=== PATIENT | male | born 1950 | race Caucasian/White ===

== ENCOUNTER 2019-04-15 15:52 | Inpatient (IN) | payer OTHER ==
[~2019-04-15] VITALS: Ht 182.9 cm; Wt 127.3 kg
[2019-04-15] MEDS ORDERED: CALCIUM CARBONATE 500 MG TAB.CHEW PO PRN (19:00)
[2019-04-15] MEDS ORDERED: ONDANSETRON PF 4 MG/2 ML VIAL. IV PRN (19:00)
[2019-04-15] MEDS ORDERED: PROCHLORPERAZINE 10 MG/2 ML VIAL. IV PRN (19:00)
[2019-04-15] MEDS ORDERED: BISACODYL 10 MG SUPP.RECT. PR PRN (19:00)
[2019-04-15] MEDS ORDERED: ALBUTEROL SULFATE 2.5 MG/3 ML NEBU. NEB PRN (19:00)
[2019-04-15] MEDS ORDERED: cloNIDine HCL 0.1 MG TABLET PO PRN (19:00)
[2019-04-15] MEDS ORDERED: ACETAMINOPHEN 325 MG TABLET. PO PRN (19:00)
[2019-04-15] MEDS ORDERED: MORPHINE SULFATE 2 MG/ML VIAL. IV PRN (19:00)
[2019-04-15] MEDS ORDERED: MAGNESIUM HYDROXIDE 2,400 MG/30 ML ORAL.SUSP. PO PRN (19:00)
--- NOTE | 2019-04-15 19:00 | NUR ---
The patient, ROSIO HAGAN, 68 y/o, M transfer from [facility], admitted by RISSA YATES MD, was given written information regarding hospital policies, unit procedures and contact persons. Valuables were checked. Patient forgetful, not able to obtain accurate history. Plan of care discuss. Pt need clarification and reinforcement. Call-light within reach. Will continue to monitor.
[2019-04-15 19:25] VITALS: BP 135/67
[2019-04-15] MEDS ORDERED: AMLO10TA8 PO (19:31)
[2019-04-15] MEDS ORDERED: METO50TA6 PO (19:31)
[2019-04-15] MEDS ORDERED: TAMS0.4C97 PO (19:31)
[2019-04-15] MEDS ORDERED: LACT1CAP2 PO (19:31)
[2019-04-15] MEDS ORDERED: ALBU2.5V8 INH (19:31)
[2019-04-15] MEDS ORDERED: RANI150T2 PO (19:31)
[2019-04-15] MEDS ORDERED: LOSA100T14 PO (19:31)
[2019-04-15] MEDS ORDERED: ACET325T9 PO (19:31)
[2019-04-15] MEDS ORDERED: POTA20TA82 PO (19:31)
[2019-04-15] MEDS ORDERED: HYDR50TA6 PO (19:31)
[2019-04-15] MEDS ORDERED: HYDR25TA PO (19:31)
[2019-04-15] MEDS ORDERED: VIT1TABL81 PO (19:31)
[2019-04-15] MEDS ORDERED: RISP4TAB2 PO (19:31)
[2019-04-15] MEDS ORDERED: TRIH5TAB2 PO ×2 (19:31)
[2019-04-15] MEDS ORDERED: TRAZ-118 PO (19:31)
[2019-04-15] MEDS ORDERED: BENZ2TAB5 PO ×2 (19:31)
[2019-04-15] MEDS ORDERED: SERT100T PO (19:31)
[2019-04-15] MEDS ORDERED: SILD100T PO (19:31)
[2019-04-15] MEDS ORDERED: ATOR40TA59 PO (19:31)
[2019-04-15] MEDS ORDERED: CHOL10003 PO (19:31)
[2019-04-15] MEDS ORDERED: CEPH500C PO (19:31)
[2019-04-15] MEDS ORDERED: CARB15DR3 EACHEYE (19:31)
[2019-04-15] MEDS ORDERED: FURO40TA4 PO (19:31)
[2019-04-15] MEDS ORDERED: DOCU100C28 PO (19:31)
[2019-04-15] MEDS ORDERED: ASPI325T8 PO (19:31)
[2019-04-15] MEDS ORDERED: MELO7.5T29 PO (19:31)
[2019-04-15] MEDS ORDERED: RIVA20TA2 PO (19:31)
[2019-04-15] MEDS: DOCUSATE SODIUM 100 MG CAPSULE. PO SCH (20:48)
[2019-04-15] MEDS ORDERED: hydrOXYzine 25 MG TABLET PO PRN (22:45)
[2019-04-15] MEDS ORDERED: NON FORMULARY ITEM (Sildenafil Citrate (Viagra) 1 TAB) PO SCH (22:45)
[2019-04-15 23:26] VITALS: BP 152/56
[2019-04-15] MEDS ORDERED: POLYVINYL ALCOHOL 1.4% OPHTH SOLUTION 15ML BOTTLE. OU PRN (23:30)
[2019-04-16] MEDS: BENZTROPINE MESYLATE 1 MG TABLET. PO SCH ×3 (00:06→20:51)
[2019-04-16] MEDS: traZODone 50 MG TABLET. PO SCH ×2 (00:06→20:51)
[2019-04-16] MEDS: risperiDONE 1 MG TABLET. PO SCH ×2 (00:07→20:50)
[2019-04-16 02:58] VITALS: BP 136/61
[2019-04-16] MEDS: oxyCODONE IR 5 MG TABLET PO PRN ×3 (03:57→23:11)
[2019-04-16 04:31] LABS: BILIRUBIN,URINE NEGATIVE (NEG); CLARITY,URINE CLEAR; COLOR,URINE YELLOW; NITRITE,URINE NEGATIVE (NEG); PROTEIN,URINE NEGATIVE (NEG-TRACE); UROBILINOGEN,URINE 0.2 mg/dL (0.2 mg/dL)
[2019-04-16 04:53] LABS: RBC,URINE TNTC /HPF (0-2)
[2019-04-16 04:54] LABS: BASO % 1 % (0-3); EOS # 0.2 x10^3/uL (0.0-0.7); EOS % 2 % (0-3); HEMATOCRIT 32.8 % (39.0-53.0); LYMPH % 14 % (24-48); MEAN CORPUSCULAR HEMOGLOBIN 30 pg (25-35); MEAN CORPUSCULAR HGB CONC 33 g/dL (31-37); MEAN CORPUSCULAR VOLUME 88 fL (79-100); MONO # 0.7 x10^3/uL (0.0-1.1); MONO % 9 % (0-9); NEUT # 5.4 x10^3uL (1.8-7.7); NEUT % 74 % (31-73); PLATELET COUNT 180 x10^3/uL (140-400); RED BLOOD COUNT 3.73 x10^6/uL (4.30-5.70); RED CELL DISTRIBUTION WIDTH 14.5 % (11.5-14.5); WHITE BLOOD COUNT 7.3 x10^3/uL (4.0-11.0)
[2019-04-16 04:54] LABS: BACTERIA,URINE 0 /HPF (0-FEW)
[2019-04-16 04:55] LABS: HYALINE CASTS, URINE FEW /HPF; SQUAMOUS EPITHELIAL CELL,UR OCC /LPF; YEAST,URINE PRESENT /HPF
[2019-04-16 05:07] LABS: PROTHROMBIN TIME PATIENT 14.7 SEC (11.7-14.0)
[2019-04-16 05:14] LABS: CALCIUM 9.3 mg/dL (8.5-10.1); CREATININE 1.1 mg/dL (0.7-1.3); GFR 66.2; POTASSIUM 3.4 mmol/L (3.5-5.1)
[2019-04-16 07:00] VITALS: BP 146/81
--- NOTE | 2019-04-16 08:53 | PDOC1 ---
History and Physical Date of Admission Date of Admission DATE: 04/16/19 TIME: 08:45 Source Source: Chart review, Patient History of Present Illness History of Present Illness Mr. Avilez was admitted to the [facility] yesterday to the ICU for pneumonia and leg pain. He complains of a long history of leg pain with ulcer and f/u planned withwound care, but new pain with marked redness and swelling of the leg. He is unsure of some timeline events and still thinks he is at [facility]. The area on the left leg is improved, seems less red to area marked yesterday. He slept OK, has short breaths, but can walk to the bathroom, some weakness, pain better, still 6/10, he is hungry and would like something to eat or drink. Past Medical History Cardiovascular: AFIB, HTN, Hyperlipidemia Hepatobiliary: No pertinent hx Psych: Depression, Other (schizotyoal) Musculoskeletal: low back pain, Osteoarthritis ENT: No pertinent hx Endocrine: No pertinent hx Dermatology: No pertinent hx Past Surgical History Past Surgical History: Other (left leg hardware many years ago) Family History Family History: No Significant Family History: Parent, Grandparents Social History Smoke: Quit ALCOHOL: none Drugs: None Current Medications Current Medications Current Medications Ondansetron HCl (Zofran) 4 mg PRN Q6HRS PRN IV NAUSEA/VOMITING, 1st CHOICE; Start 04/15/19 at 19:00 Prochlorperazine Edisylate (Compazine) 10 mg PRN Q6HRS PRN IV NAUSEA/VOMITING, 2nd CHOICE; Start 04/15/19 at 19:00 Calcium Carbonate/ Glycine (Tums) 500 mg PRN Q3HRS PRN PO UPSET STOMACH; Start 04/15/19 at 19:00 Oxycodone HCl (Roxicodone) 5 mg PRN Q3HRS PRN PO BREAKTHROUGH PAIN Last adm inistered on 04/16/19at 03:57; Start 04/15/19 at 19:00 Morphine Sulfate (Morphine Sulfate) 2 mg PRN Q2HR PRN IV PAIN; Start 04/15/19 at 19:00 Acetaminophen (Tylenol) 650 mg PRN Q6HRS PRN PO Headaches, Temp > 101.5F; Start 04/15/19 at 19:00 Docusate Sodium (Colace) 100 mg BID PO ; Start 04/15/19 at 21:00 Magnesium Hydroxide (Milk Of Magnesia) 2,400 mg PRN Q12HR PRN PO CONSTIPATION; Start 04/15/19 at 19:00 Bisacodyl (Dulcolax Supp) 10 mg PRN DAILY PRN NM CONSTIPATION; Start 04/15/19 at 19:00 Albuterol Sulfate (Ventolin Neb Soln) 2.5 mg PRN Q4HRS PRN NEB SHORTNESS OF BREATH Last administered on 04/15/19at 21:24; Start 04/15/19 at 19:00 Clonidine HCl (Catapres) 0.1 mg PRN Q1HR PRN PO HYPERTENSION; Start 04/15/19 at 19:00 Amlodipine Besylate (Norvasc) 10 mg DAILY PO ; Start 04/16/19 at 09:00 Atorvastatin Calcium (Lipitor) 40 mg QHS PO ; Start 04/16/19 at 21:00 Vitamin D (Vitamin D3) 2,000 unit DAILY PO ; Start 04/16/19 at 09:00 Furosemide (Lasix) 40 mg BID94 PO ; Start 04/16/19 at 09:00 Hydroxyzine HCl (Atarax) 25 mg PRN TID PRN PO ITCHING; Start 04/15/19 at 22:45 Metoprolol Tartrate (Lopressor) 75 mg BID PO ; Start 04/16/19 at 09:00 Tamsulosin HCl (Flomax) 0.4 mg QHS PO ; Start 04/16/19 at 21:00 Benztropine Mesylate (Cogentin) 2 mg QHS PO Last administered on 04/16/19at 00:06; Start 04/15/19 at 23:30 Benztropine Mesylate (Cogentin) 4 mg DAILY08 PO ; Start 04/16/19 at 08:00 Artificial Tears (Artificial Tears) 1 drop PRN QID PRN OU DRY EYE; Start 04/15/19 at 23:30 Cephalexin HCl (Keflex) 500 mg TID PO ; Start 04/16/19 at 23:45 Hydrochlorothiazide (Hydrodiuril) 50 mg DAILY PO ; Start 04/16/19 at 09:00 Lactobacillus Rhamnosus (Culturelle) 1 cap TID PO ; Start 04/16/19 at 09:00 Losartan Potassium (Cozaar) 100 mg DAILY PO ; Start 04/16/19 at 09:00 Meloxicam (Mobic) 7.5 mg BID PO ; Start 04/16/19 at 09:00 Potassium Chloride (Klor-Con) 20 meq DAILYWBKFT PO ; Start 04/16/19 at 08:00 Famotidine (Pepcid) 20 mg BID PO ; Start 04/16/19 at 09:00 Risperidone (RisperDAL) 4 mg QHS PO Last administered on 04/16/19at 00:07; Star t 04/15/19 at 23:30 Sertraline HCl (Zoloft) 150 mg DAILY PO ; Start 04/16/19 at 09:00 Non-Formulary Medication (Sildenafil Citrate (Viagra)) 1 tab PRN DAILY PO ; Start 04/15/19 at 22:45; Status UNV Trazodone HCl (Desyrel) 150 mg QHS PO Last administered on 04/16/19at 00:06; Start 04/15/19 at 23:30 Trihexyphenidyl HCl (Artane) 5 mg DAILY08 PO ; Start 04/16/19 at 08:00 Trihexyphenidyl HCl (Artane) 10 mg DAILYWLUN PO ; Start 04/16/19 at 12:00 Vitamin B Complex (Cricket B) 1 tab DAILY PO ; Start 04/16/19 at 09:00 Albuterol/ Ipratropium (Duoneb) 3 ml RTQID NEB ; Start 04/16/19 at 12:00 Active Scripts Active Reported Flomax (Tamsulosin Hcl) 0.4 Mg Cap.er.24h 1 Cap PO QHS Losartan Potassium 100 Mg Tablet 100 Mg PO DAILY Vitamin D3 (Cholecalciferol (Vitamin D3)) 1,000 Unit Tablet 2 Tab PO DAILY Aspirin 325 Mg Tablet 1 Tab PO DAILY Amlodipine Besylate 10 Mg Tablet 10 Mg PO DAILY Trazodone Hcl 50 Mg Tablet 3 Tab PO QHS Cephalexin 500 Mg Capsule 2 Cap PO TID Tylenol (Acetaminophen) 325 Mg Tablet 1-2 Tab PO QID Gnp B-Complex Tablet (Vit B Comp & C/Calcium Carb) 1 Each Tablet 1 Each PO DAILY Trihexyphenidyl Hcl 5 Mg Tablet 2 Tab PO DAILYWLUN Trihexyphenidyl Hcl 5 Mg Tablet 1 Tab PO DAILY08 Viagra (Sildenafil Citrate) 100 Mg Tablet 1 Tab PO PRN DAILY Zoloft (Sertraline Hcl) 100 Mg Tablet 1.5 Tab PO DAILY Xarelto (Rivaroxaban) 20 Mg Tablet 20 Mg PO DAILY Risperidone 4 Mg Tablet 1 Tab PO QHS Ranitidine Hcl 150 Mg Tablet 1 Tab PO BID Potassium Chloride 20 Meq Tablet.er 20 Meq PO DAILY Metoprolol Tartrate 50 Mg Tablet 1.5 Tab PO BID Meloxicam 7.5 Mg Tablet 1 Tab PO BID Acidophilus (Lactobacillus Acidophilus) 1 Each Capsule 1 Each PO TID Hydroxyzine Hcl 25 Mg Tablet 1 Tab PO PRN TID PRN Hydrochlorothiazide Tablet (Hydrochlorothiazide) 50 Mg Tablet 50 Mg PO DAILY Furosemide 40 Mg Tablet 40 Mg PO BID Docusate Sodium 100 Mg Capsule 1 Cap PO BID Refresh Optive Eye Drops (Carboxymethylcellulos/Glycerin) 15 Ml Drops 1 Drop EACHEYE PRN QID PRN Benztropine Mesylate 2 Mg Tablet 1 Tab PO QHS Benztropine Mesylate 2 Mg Tablet 2 Tab PO DAILY08 Atorvastatin Calcium 40 Mg Tablet 1 Tab PO QHS Proair Hfa Inhaler (Albuterol Sulfate) 8.5 Gm Hfa.aer.ad 2 Puff INH PRN Q6HRS PRN Allergies Allergies: Coded Allergies: No Known Medication Allergies (Verified Allergy, Unknown, 04/15/19) Uncoded Allergies: dust (Allergy, Intermediate, SNEEZING, 04/15/19) Sneezing ROS General: YES: Chills, Fatigue, Malaise PSYCHOLOGICAL ROS: YES: Anxiety, Sleep disturbances Eyes: No Blurry vision, No Decreased vision, No Double vision, No Dry eyes, No Excessive tearing, No Eye Pain, No Itchy Eyes, No Loss of vision, No Photophobia, No Scotomata, No Uses contacts, No Uses glasses, No Other HEENT: YES: Heacaches; No: Visual Changes, Hearing change, Nasal congestion, Nasal discharge, Oral lesions, Sinus pain, Sore Throat, Epistaxis, Sneezing, Snoring, Tinnitus, Vertigo, Vocal changes, Other Respiratory: No: Cough, Hemoptysis, Orthopnea, Pleuritic Pain, Shortness of breath, SOB with excertion, Sputum Changes, Stridor, Tachypnea, Wheezing, Other Cardiovascular: No Chest Pain, No Palpitations, No Orthopnea, No Paroxysmal Noc. Dyspnea, No Edema, No Lt Headedness, No Other Gastrointestinal: Yes Nausea; No Vomiting, No Abdominal Pain, No Diarrhea, No Constipation, No Melena, No Hematochezia, No Other Genitourinary: No Dysuria, No Frequency, No Incontinence, No Hematuria, No Retention, No Discharge, No Urgency, No Pain, No Flank Pain, No Other, No , No , No , No , No , No , No Musculoskeletal: Yes Joint Pain, Yes Joint Stiffness, Yes Pain In: (left leg); No Gait Disturbance, No Joint Swelling, No Muscle Pain, No Muscular Weakness, No Swelling In:, No Other Neurological: No Behavorial Changes, No Bowel/Bladder ControlChng, No Confusion, No Dizziness, No Gait Disturbance, No Headaches, No Impaired Coord/balance, No Memory Loss, No Numbness/Tingling, No Seizures, No Speech Problems, No Tremors, No Visual Changes, No Weakness, No Other Skin: Yes Dry Skin Physical Exam General: Alert, Cooperative, mild distress, Other HEENT: Atraumatic Lungs: Clear to auscultation Heart: no gallops, no murmurs, irregularly irregular Breasts: Normal Abdomen: Normal bowel sounds, Soft (obese, NT, ), Other Extremities: No cyanosis, Other (tr edema, left, ) Skin: Other (redness, to upper [place], has receded from marked area, ) Neuro: Normal speech, Sensation intact Psych/Mental Status: Mental status NL, Mood NL Vitals Vitals Vital Signs Date Time Temp Pulse Resp B/P (MAP) Pulse Ox O2 Delivery O2 Flow Rate FiO2 04/16/19 07:00 99.0 102 18 146/81 (102) 90 Room Air 99.0 Labs Labs Laboratory Tests Test 04/16/19 03:00 04/16/19 04:15 Urine Collection Type Unknown Urine Color Yellow Urine Clarity Clear Urine pH 7.0 Urine Specific [place] 1.015 Urine Protein Negative mg/dL (NEG-TRACE) Urine Glucose (UA) Negative mg/dL (NEG) Urine Ketones (Stick) Negative mg/dL (NEG) Urine Blood Large (NEG) Urine Nitrite Negative (NEG) Urine Bilirubin Negative (NEG) Urine Urobilinogen Dipstick 0.2 mg/dL (0.2 mg/dL) Urine Leukocyte Esterase Small (NEG) Urine RBC Tntc /HPF (0-2) Urine WBC 5-10 /HPF (0-4) Urine Squamous Epithelial Cells Occ /LPF Urine Bacteria 0 /HPF (0-FEW) Urine Hyaline Casts Few /HPF Urine Mucus Mod /LPF Urine Yeast Present /HPF White Blood Count 7.3 x10^3/uL (4.0-11.0) Red Blood Count 3.73 x10^6/uL (4.30-5.70) Hemoglobin 11.0 g/dL (13.0-17.5) Hematocrit 32.8 % (39.0-53.0) Mean Corpuscular Volume 88 fL (79-100) Mean Corpuscular Hemoglobin 30 pg (25-35) Mean Corpuscular Hemoglobin Concent 33 g/dL (31-37) Red Cell Distribution Width 14.5 % (11.5-14.5) Platelet Count 180 x10^3/uL (140-400) Neutrophils (%) (Auto) 74 % (31-73) Lymphocytes (%) (Auto) 14 % (24-48) Monocytes (%) (Auto) 9 % (0-9) Eosinophils (%) (Auto) 2 % (0-3) Basophils (%) (Auto) 1 % (0-3) Neutrophils # (Auto) 5.4 x10^3uL (1.8-7.7) Lymphocytes # (Auto) 1.0 x10^3/uL (1.0-4.8) Monocytes # (Auto) 0.7 x10^3/uL (0.0-1.1) Eosinophils # (Auto) 0.2 x10^3/uL (0.0-0.7) Basophils # (Auto) 0.0 x10^3/uL (0.0-0.2) Erythrocyte Sedimentation Rate 63 (0-15) Prothrombin Time 14.7 SEC (11.7-14.0) Prothromb Time International Ratio 1.2 (0.8-1.1) Sodium Level 144 mmol/L (136-145) Potassium Level 3.4 mmol/L (3.5-5.1) Chloride Level 107 mmol/L (98-107) Carbon Dioxide Level 27 mmol/L (21-32) Anion Gap 10 (6-14) Blood Urea Nitrogen 21 mg/dL (8-26) Creatinine 1.1 mg/dL (0.7-1.3) Estimated GFR (Cockcroft-Gault) 66.2 Glucose Level 143 mg/dL (70-99) Calcium Level 9.3 mg/dL (8.5-10.1) Laboratory Tests Test 04/16/19 03:00 04/16/19 04:15 Urine Collection Type Unknown Urine Color Yellow Urine Clarity Clear Urine pH 7.0 Urine Specific [place] 1.015 Urine Protein Negative mg/dL (NEG-TRACE) Urine Glucose (UA) Negative mg/dL (NEG) Urine Ketones (Stick) Negative mg/dL (NEG) Urine Blood Large (NEG) Urine Nitrite Negative (NEG) Urine Bilirubin Negative (NEG) Urine Urobilinogen Dipstick 0.2 mg/dL (0.2 mg/dL) Urine Leukocyte Esterase Small (NEG) Urine RBC Tntc /HPF (0-2) Urine WBC 5-10 /HPF (0-4) Urine Squamous Epithelial Cells Occ /LPF Urine Bacteria 0 /HPF (0-FEW) Urine Hyaline Casts Few /HPF Urine Mucus Mod /LPF Urine Yeast Present /HPF White Blood Count 7.3 x10^3/uL (4.0-11.0) Red Blood Count 3.73 x10^6/uL (4.30-5.70) Hemoglobin 11.0 g/dL (13.0-17.5) Hematocrit 32.8 % (39.0-53.0) Mean Corpuscular Volume 88 fL (79-100) Mean Corpuscular Hemoglobin 30 pg (25-35) Mean Corpuscular Hemoglobin Concent 33 g/dL (31-37) Red Cell Distribution Width 14.5 % (11.5-14.5) Platelet Count 180 x10^3/uL (140-400) Neutrophils (%) (Auto) 74 % (31-73) Lymphocytes (%) (Auto) 14 % (24-48) Monocytes (%) (Auto) 9 % (0-9) Eosinophils (%) (Auto) 2 % (0-3) Basophils (%) (Auto) 1 % (0-3) Neutrophils # (Auto) 5.4 x10^3uL (1.8-7.7) Lymphocytes # (Auto) 1.0 x10^3/uL (1.0-4.8) Monocytes # (Auto) 0.7 x10^3/uL (0.0-1.1) Eosinophils # (Auto) 0.2 x10^3/uL (0.0-0.7) Basophils # (Auto) 0.0 x10^3/uL (0.0-0.2) Erythrocyte Sedimentation Rate 63 (0-15) Prothrombin Time 14.7 SEC (11.7-14.0) Prothromb Time International Ratio 1.2 (0.8-1.1) Sodium Level 144 mmol/L (136-145) Potassium Level 3.4 mmol/L (3.5-5.1) Chloride Level 107 mmol/L (98-107) Carbon Dioxide Level 27 mmol/L (21-32) Anion Gap 10 (6-14) Blood Urea Nitrogen 21 mg/dL (8-26) Creatinine 1.1 mg/dL (0.7-1.3) Estimated GFR (Cockcroft-Gault) 66.2 Glucose Level 143 mg/dL (70-99) Calcium Level 9.3 mg/dL (8.5-10.1) VTE Prophylaxis Ordered VTE Prophylaxis Devices: Yes VTE Pharmacological Prophylaxi: Contraindicated Assessment/Plan Assessment/Plan leg leg cellulitis with wound, swelling and pain, has history of hardware to left leg, has been on disability 30 years for leg injury hx venous stasis ulcer, has followed with wound clinic obesity, COPD, treated for pneumonia at [facility] yesterday, was admitted to ICU there but did not meet SIRS criteria afib, on xarelto, will hold, they had planned an echo, cognitive decline, lives in assisted living, schizoaffective hx with depression, on meds BUTCH OAKLEY MD April 16, 2019 08:53
[2019-04-16] MEDS: BUDESONIDE 0.5 MG/2 ML NEBU. NEB SCH ×2 (08:57→20:58)
[2019-04-16] MEDS: IPRATRPIUM/ALBUTEROL 0.5/2.5MG 3 ML NEBU. NEB SCH ×4 (08:57→20:58)
[2019-04-16] MEDS: DOCUSATE SODIUM 100 MG CAPSULE. PO SCH ×2 (09:00→20:53)
[2019-04-16 11:00] VITALS: BP 160/68
--- NOTE | 2019-04-16 11:45 | PDOC ---
Infectious Disease Note Vital Signs: Vital Signs Vital Signs Date Time Temp Pulse Resp B/P (MAP) Pulse Ox O2 Delivery O2 Flow Rate FiO2 04/16/19 08:57 89 Room Air 04/16/19 07:00 99.0 102 18 146/81 (102) 99.0 Medications: Inpatient Meds: Current Medications Medications (Trade) Dose Ordered Sig/Akanksha Start Time Stop Time Status Last Admin Dose Admin Acetaminophen (Tylenol) 650 mg PRN Q6HRS PRN 04/15/19 19:00 Albuterol Sulfate (Ventolin Neb Soln) 2.5 mg PRN Q4HRS PRN 04/15/19 19:00 04/15/19 21:24 2.5 MG Albuterol/ Ipratropium (Duoneb) 3 ml RTQID 04/16/19 12:00 04/16/19 08:57 3 ML Amlodipine Besylate (Norvasc) 10 mg DAILY 04/16/19 09:00 Artificial Tears (Artificial Tears) 1 drop PRN QID PRN 04/15/19 23:30 Atorvastatin Calcium (Lipitor) 40 mg QHS 04/16/19 21:00 Benztropine Mesylate (Cogentin) 4 mg DAILY08 04/16/19 08:00 Bisacodyl (Dulcolax Supp) 10 mg PRN DAILY PRN 04/15/19 19:00 Budesonide (Pulmicort) 0.5 mg RTBID 04/16/19 09:30 04/16/19 08:57 0.5 MG Calcium Carbonate/ Glycine (Tums) 500 mg PRN Q3HRS PRN 04/15/19 19:00 Cephalexin HCl (Keflex) 500 mg TID 04/16/19 23:45 Clonidine HCl (Catapres) 0.1 mg PRN Q1HR PRN 04/15/19 19:00 Docusate Sodium (Colace) 100 mg BID 04/15/19 21:00 Famotidine (Pepcid) 20 mg BID 04/16/19 09:00 Furosemide (Lasix) 40 mg BID94 04/16/19 09:00 Hydrochlorothiazide (Hydrodiuril) 50 mg DAILY 04/16/19 09:00 Hydroxyzine HCl (Atarax) 25 mg PRN TID PRN 04/15/19 22:45 Lactobacillus Rhamnosus (Culturelle) 1 cap TID 04/16/19 09:00 Losartan Potassium (Cozaar) 100 mg DAILY 04/16/19 09:00 Magnesium Hydroxide (Milk Of Magnesia) 2,400 mg PRN Q12HR PRN 04/15/19 19:00 Meloxicam (Mobic) 7.5 mg BID 04/16/19 09:00 Metoprolol Tartrate (Lopressor) 75 mg BID 04/16/19 09:00 Morphine Sulfate (Morphine Sulfate) 2 mg PRN Q2HR PRN 04/15/19 19:00 Non-Formulary Medication (Sildenafil Citrate (Viagra)) 1 tab PRN DAILY 04/15/19 22:45 UNV Ondansetron HCl (Zofran) 4 mg PRN Q6HRS PRN 04/15/19 19:00 Oxycodone HCl (Roxicodone) 5 mg PRN Q3HRS PRN 04/15/19 19:00 04/16/19 03:57 5 MG Potassium Chloride (Klor-Con) 20 meq DAILYWBKFT 04/16/19 08:00 Prochlorperazine Edisylate (Compazine) 10 mg PRN Q6HRS PRN 04/15/19 19:00 Risperidone (RisperDAL) 4 mg QHS 04/15/19 23:30 04/16/19 00:07 4 MG Sertraline HCl (Zoloft) 150 mg DAILY 04/16/19 09:00 Tamsulosin HCl (Flomax) 0.4 mg QHS 04/16/19 21:00 Trazodone HCl (Desyrel) 150 mg QHS 04/15/19 23:30 04/16/19 00:06 150 MG Trihexyphenidyl HCl (Artane) 10 mg DAILYWLUN 04/16/19 12:00 Vitamin B Complex (Cricket B) 1 tab DAILY 04/16/19 09:00 Vitamin D (Vitamin D3) 2,000 unit DAILY 04/16/19 09:00 Labs: Lab Laboratory Tests Test 04/16/19 03:00 04/16/19 04:15 Urine Collection Type Unknown Urine Color Yellow Urine Clarity Clear Urine pH 7.0 Urine Specific [place] 1.015 Urine Protein Negative mg/dL (NEG-TRACE) Urine Glucose (UA) Negative mg/dL (NEG) Urine Ketones (Stick) Negative mg/dL (NEG) Urine Blood Large (NEG) Urine Nitrite Negative (NEG) Urine Bilirubin Negative (NEG) Urine Urobilinogen Dipstick 0.2 mg/dL (0.2 mg/dL) Urine Leukocyte Esterase Small (NEG) Urine RBC Tntc /HPF (0-2) Urine WBC 5-10 /HPF (0-4) Urine Squamous Epithelial Cells Occ /LPF Urine Bacteria 0 /HPF (0-FEW) Urine Hyaline Casts Few /HPF Urine Mucus Mod /LPF Urine Yeast Present /HPF White Blood Count 7.3 x10^3/uL (4.0-11.0) Red Blood Count 3.73 x10^6/uL (4.30-5.70) Hemoglobin 11.0 g/dL (13.0-17.5) Hematocrit 32.8 % (39.0-53.0) Mean Corpuscular Volume 88 fL (79-100) Mean Corpuscular Hemoglobin 30 pg (25-35) Mean Corpuscular Hemoglobin Concent 33 g/dL (31-37) Red Cell Distribution Width 14.5 % (11.5-14.5) Platelet Count 180 x10^3/uL (140-400) Neutrophils (%) (Auto) 74 % (31-73) Lymphocytes (%) (Auto) 14 % (24-48) Monocytes (%) (Auto) 9 % (0-9) Eosinophils (%) (Auto) 2 % (0-3) Basophils (%) (Auto) 1 % (0-3) Neutrophils # (Auto) 5.4 x10^3uL (1.8-7.7) Lymphocytes # (Auto) 1.0 x10^3/uL (1.0-4.8) Monocytes # (Auto) 0.7 x10^3/uL (0.0-1.1) Eosinophils # (Auto) 0.2 x10^3/uL (0.0-0.7) Basophils # (Auto) 0.0 x10^3/uL (0.0-0.2) Erythrocyte Sedimentation Rate 63 (0-15) Prothrombin Time 14.7 SEC (11.7-14.0) Prothromb Time International Ratio 1.2 (0.8-1.1) Sodium Level 144 mmol/L (136-145) Potassium Level 3.4 mmol/L (3.5-5.1) Chloride Level 107 mmol/L (98-107) Carbon Dioxide Level 27 mmol/L (21-32) Anion Gap 10 (6-14) Blood Urea Nitrogen 21 mg/dL (8-26) Creatinine 1.1 mg/dL (0.7-1.3) Estimated GFR (Cockcroft-Gault) 66.2 Glucose Level 143 mg/dL (70-99) Calcium Level 9.3 mg/dL (8.5-10.1) Objective: Assessment: pt seen and examined IMP Recent pneumonia at [facility] admitted to ICU Chronic venous stasis Lt chronic venous ulcer ? unknown duration . Leucocytosis and lactic acidosis at osh resolved Chr diastolic heart failure Plan: Plan of Care DC Keflex start pt on Cefepime and doxycycline for now on antidepressant f/u MRI LLE Ortho consult pending Cont local wound care [facility] Thank you [phone] HARSHIL JAMESON MD April 16, 2019 11:45
[2019-04-16] MEDS: TRIHEXYPHENIDYL 2 MG TABLET. PO SCH ×2 (12:00→12:24)
[2019-04-16] MEDS: hydroCHLOROthiazide 25 MG TABLET PO SCH (12:24)
[2019-04-16] MEDS: SERTRALINE 50 MG TABLET. PO SCH (12:25)
[2019-04-16] MEDS: LACTOBACILLUS RHAMNOSUS GG 1 CAPSULE. PO SCH ×3 (12:25→20:52)
[2019-04-16] MEDS: POTASSIUM CHLORIDE 20 MEQ TABLET.ER. PO SCH (12:25)
[2019-04-16] MEDS: VITAMIN B COMPLEX TABLET. PO SCH (12:25)
[2019-04-16] MEDS: DOXYCYCLINE HYCLATE 100 MG TABLET PO SCH ×2 (12:25→20:51)
[2019-04-16] MEDS: CHOLECALCIFEROL (VITAMIN D3) 1,000 UNIT TABLET PO SCH (12:25)
[2019-04-16] MEDS: METOPROLOL TART IMMED RELEASE 25 MG TABLET. PO SCH ×2 (12:26→20:52)
[2019-04-16] MEDS: FUROSEMIDE 40 MG TABLET. PO SCH ×2 (12:26→17:55)
[2019-04-16] MEDS: MELOXICAM 7.5 MG TABLET PO SCH ×2 (12:26→20:53)
[2019-04-16] MEDS: amLODIPine BESYLATE 10 MG TABLET PO SCH (12:27)
[2019-04-16] MEDS: CEFEPIME HCL IV Push 2 GM VIAL. IVP SCH ×2 (12:27→20:50)
[2019-04-16] MEDS: FAMOTIDINE 20 MG TABLET. PO SCH ×2 (12:27→20:53)
[2019-04-16] MEDS: LOSARTAN POTASSIUM 50 MG TABLET. PO SCH (12:28)
[2019-04-16] MEDS ORDERED: hydrOXYzine PAMOATE 25 MG CAPSULE PO PRN (13:25)
[2019-04-16 15:00] VITALS: BP 122/59
[2019-04-16 19:00] VITALS: BP 130/76
--- NOTE | 2019-04-16 19:49 | CONS ---
DATE OF CONSULTATION: 04/16/2019 REFERRING PHYSICIAN: Cici Martin M.D. REASON FOR CONSULTATION: Left lower extremity cellulitis, possible osteo. HISTORY OF PRESENT ILLNESS: A 68-year-old male who was transferred from [facility] where he was admitted to the ICU on 04/13/2019 with altered mental status, pneumonia and leg pain. The patient has chronic renal insufficiency and has chronic nonhealing venous stasis ulcer for which he follows up at [facility] at [facility]. He had new pain with marked redness and swelling of the leg. He was admitted to ICU on 04/13. His white count was high with a lactic acidosis. Source was thought to be pneumonia. He underwent a chest x-ray, which showed patchy infiltrate in the right lung base with atelectasis versus infection here, and CT of the head due to altered mental status, which showed no acute intracranial abnormality. He was started on IV Rocephin and doxycycline. Cultures were done. I do not have the report on the same. For confusion, it was thought to be from the infection. CT of the head was negative for any acute findings. He was later changed to cefepime. CT of the lower extremity was done without contrast, which showed mild periosteal reaction seen in the medial aspect of the distal fibula, may be reactive. Other consideration would be early changes related to osteomyelitis. Consider bone scan or WBC scan for further evaluation if clinically indicated. No destructive bone changes are identified, stable extensive posttraumatic changes seen in the distal tibia and fibula. No drainable collection identified. Extensive subcutaneous edema noted. The patient has hardware in place from previous surgery, which he states is more than 25 years old. The patient was started on Keflex here. He was transferred to [facility] for orthopedic evaluation and treatment. MRI of the left lower extremity has been ordered, which is pending at this time. White count is back to normal. Currently, he is on Keflex, started by primary team. ID consult has been requested for antibiotic management. Today, the patient denies any fever, chills, nausea, vomiting, diarrhea, shortness of breath, cough, chest pain with deep breathing or symptoms. Does have a Olivarez in place. Does have O2 by nasal cannula. PAST MEDICAL HISTORY: Atrial fibrillation, hypertension, hyperlipidemia, depression, schizoaffective disorder, chronic low back pain, DJD, chronic diastolic heart failure, chronic venous insufficiency of lower extremity, history of recurrent DVT, chronic edema of lower extremity, chronic venous stasis ulcer, urinary incontinence, chronic hep C without evidence of, hypogonadism, dyspepsia, GERD, erectile dysfunction, seborrheic keratosis, hypertension, history of atrial tachycardia, senile cataract, seborrheic dermatitis, hyperlipidemia, paroxysmal atrial tachycardia, impaired fasting glucose, history of alcohol dependence, history of cannabis use, COPD, dystrophic nails, history of callus, and history of BPH. SOCIAL HISTORY: He quit smoking, no ETOH, no illicit drug use. FAMILY HISTORY: As per HPI. PAST SURGICAL HISTORY: Left leg hardware in place more than 20 years ago. CURRENT MEDICATION: Keflex. OTHER MEDICATIONS: Zofran, calcium carbonate, oxycodone, morphine, acetaminophen, docusate, magnesium hydroxide, albuterol, clonidine, amlodipine, atorvastatin, vitamin D, furosemide, hydroxyzine, metoprolol, tamsulosin, benztropine, artificial tears, hydrochlorothiazide, lactobacillus, losartan, Meloxicam, potassium, famotidine, risperidone, sertraline, trazodone, trihexyphenidyl, B complex, albuterol/ipratropium. The patient had been on ceftriaxone and doxycycline. On admission, later on, he was also on cefepime at [facility]. ALLERGIES: No known drug allergies. DUST CAUSING SNEEZING. REVIEW OF SYSTEMS: Negative except for above in the HPI. PHYSICAL EXAMINATION: VITAL SIGNS: Temperature is 97, pulse 102, respiratory rate 18, blood pressure 146/81, and oxygen saturation 90% on room air. GENERAL: Alert, oriented, somewhat confused male sitting in chair, in no acute distress, cooperative, pleasant. HEENT: Normocephalic, atraumatic, anicteric. NECK: Supple. No JVD. LUNGS: Clear bilaterally, no wheezing. HEART: S1, S2, no gallops or murmurs. ABDOMEN: Soft, obese. Bowel sounds present, nontender, nondistended. GENITOURINARY: Olivarez in place. CENTRAL NERVOUS SYSTEM: Alert, awake, somewhat confused, does have some trouble with memory. Able to move all 4 extremities. DERMATOLOGIC: Warm, dry. No generalized rash. EXTREMITIES: Left lower extremity swelling present. Scar over the lateral aspect around the ankle well healed. Venous stasis ulcer present on the medial aspect. No purulent drainage. Does not have any sinus tract, does not appear to be communicating to the lateral HW in place PSYCHIATRIC: Cooperative, appropriate mood and affect. LABORATORY DATA: WBC is 7.3, hemoglobin 11.0, hematocrit 32.8, and neutrophils 74%. ESR is 63. Sodium is 144, potassium 3.4, chloride 107, bicarbonate 27, BUN 21, creatinine 1.1, and glucose 143. UA shows 5-10 wbc's, leukocyte esterase small, too numerous to count urine RBC. Chest x-ray, none. UA at outside hospital was within normal limits. White count was elevated at 0.98. Lactate of 3.59. Creatinine of 1.91. CT head as above. CT of left lower extremity without contrast shows mild periosteal reaction seen along the medial aspect of the distal fibula may be reactive. Other consideration would be early changes related to osteomyelitis. Consider bone scan or white cell scan for further evaluation if clinically indicated. No destructive bone changes are identified, stable except posttraumatic changes noted in the distal tibia and fibula. No drainable collection identified. Extensive subcutaneous edema noted. Chest x-ray at outside hospital showed mild patchy opacity at the medial right lung base, which may represent atelectasis or infection. Linear streaky opacities at the lung bases bilaterally, may represent subsegmental atelectasis or scarring or airspace disease or infection. IMPRESSION: 1. Chronic venous stasis ulcer, left lower leg medially, followed by [facility] at [facility]. Does not appear to be going to the lateral ankle hardware. MRI LLE is pending, Ortho evaluation pending 2. Chronic venous stasis. 3. History of left lower extremity hardware in place, lateral aspect, more than 30 years ago. 4. Recent pneumonia with leukocytosis and lactic acidosis treated at ICU at [facility]. Blood cultures were done, not available for review at this time. 5. Confusion with underlying history of frontotemporal dementia. CT without acute findings at outside hospital, improving. 6. Hypertension/hyperlipidemia. 7. Chronic diastolic heart failure. 8. Depression/schizoaffective disorder. 9. History of deep venous thrombosis in the past. RECOMMENDATIONS: 1. Discontinue Keflex. 2. Start the patient on empiric cefepime and doxycycline with recent history of pneumonia,will deescalate soon 3. Awaiting MRI of the left lower extremity. 4. Awaiting Ortho consult. 5. Elevate left lower extremity. 6. Follow up cultures done at [facility]. 7. Continue local wound care. Thank you, Dr. Martin for consulting Infectious Disease to participate in this patient's care. Discussed with RN. HARSHIL JAMESON MD DR: EARLENE/charles JOB#: [id number] / [id number] MADELINE
[2019-04-16] MEDS: ATORVASTATIN CALCIUM 40 MG TABLET. PO SCH (20:53)
[2019-04-16] MEDS: TAMSULOSIN 0.4 MG CAP.ER.24H. PO SCH (20:53)
--- NOTE | 2019-04-16 21:15 | NUR ---
Patient refused evening breathing treatment.
--- NOTE | 2019-04-16 21:48 | CONS ---
DATE OF CONSULTATION: 04/16/2019 REQUESTING PHYSICIAN: Dr. Cici Martin. REASON FOR CONSULTATION: Left leg wound with suspected osteomyelitis. HISTORY OF PRESENT ILLNESS: The patient was admitted to [facility] for some complaints of shortness of breath and was found to have pneumonia. He also on admission was noted to have a skin ulceration he says for several months, perhaps going on a year that has been recently draining and has had increased pain associated with redness and swelling. He states that the left ankle has been painful chronically since a compound fracture that occurred 30 years ago, I am not sure if he was in the or not at that time, but he underwent multiple surgeries and indicates that while the pin that was placed on the lateral aspect of the leg was kept in, he underwent a removal of his plate and screw hardware along the medial aspect of his ankle where he currently has his symptoms. He indicates that the ankle has just been stiff and painful with ambulation and more so when it is swollen like it was recently. PAST MEDICAL HISTORY: Significant for chronic low back pain, osteoarthritis, hyperlipidemia, atrial fibrillation, hypertension and he is under treatment for his psychiatric issues of depression and schizo type issues. PAST SURGICAL HISTORY: Significant for the multiple surgeries on his left ankle from a compound fracture 30 years ago with fixation and subsequent hardware removal from the medial ankle. FAMILY HISTORY: He denies any significant family history. SOCIAL HISTORY: Smoked in the past, but quit. Denies alcohol or drug use. MEDICATIONS: Reviewed. ALLERGIES: He has no known medication allergies, although dust is indicated as seasonal allergy. REVIEW OF SYSTEMS: Chills, lack of energy and just fatigue when he tries to get up and around. He has also had some difficulty sleeping that is worse than his baseline anxiety. He has had headaches, nausea, joint pain, particularly in the left ankle, worse with the recent swelling, but baseline from the injury as well as some issues with dry skin, unsure about fevers. PHYSICAL EXAMINATION: A 68-year-old male, height 72 inches, weight 129 kilograms. He is pleasant, conversational and cooperative. On examination of the lower extremities, specifically the left ankle. He has previous scars from surgeries along the medial and lateral aspect of the left ankle. He has about 2-3 mm round area that appears to probe to periosteum if not bone with granulation tissue around the area in the larger oval fashion about 3 cm anterior to posterior and about 1.5 cm proximal to distal and has just some serous drainage from this area with no odor. He does have a large callus on the central aspect of his foot for roughly overlying the third metatarsal head, but no surrounding redness or pain associated with it. He has well-healed incision over the lateral aspect of his ankle and no skin defect or tenderness on palpation is present. He really has no tenderness on palpation over the ankle itself over the bony prominences. He does have some discomfort with extremes of plantar and dorsiflexion of the left ankle compared to the right. He has good stability of both. Decreased pulses in both legs. He does have some mild swelling, but I would only call his edema, perhaps 1+ in terms of any pitting edema. Again, pulses are diminished, but skin is warm. He has no other skin defects on the contralateral leg and has normal alignment, stability of bilateral hips and knees. No other joint pain or swelling noted in the upper extremities. LABORATORY DATA: Examination from the [facility] was reviewed, which showed a white count of 18.9 on 04/13/2019. Laboratory examination from this morning shows a white count of 7.3, sedimentation rate is 63. IMAGING: CT scan and plain x-ray films from the [facility] were reviewed, images by me and showed significant posttraumatic bony changes with essentially a fusion of the tibia and fibula and presence of a tam up the well-healed fibula. There is no hardware present on the medial ankle and no obvious signs of osteomyelitis over the area of the wound on the medial ankle either by plain x-ray or CT scan. Ankle joint shows some mild degenerative change and his other bony changes appear to me to be posttraumatic. The radiologist reading at the [facility] appeared to draw similar conclusions. IMPRESSION: A 68-year-old male with: 1. Peripheral vascular disease and a longstanding medial ankle area wound. 2. Status post remote 30 years ago, open tibia-fibula fracture that underwent internal fixation and subsequent removal of medial hardware. He still has a lateral tibial nail present, but that appears to be uninvolved to his medial wound or the bony changes as there is no lucency around the hardware and bony changes appear to be posttraumatic. TREATMENT PLAN: I went over with him planned treatment, which would include transcutaneous oxygen measurements to assess his wound healing capability. He appears to be responding initially to his antibiotic treatment as the initial redness reported appears to be decreased according to the hospitalist notes and much of his ankle pain I think is chronic in nature. I emphasized to him that the major consideration is getting his wound to heal over to avoid exposure of the medial bone and that may require some extensive wound care, perhaps vascular intervention depending on results of the transcutaneous oxygen measurement studies and perhaps result of an MRI, which was ordered, but not obtained as of yet to evaluate any bony changes of osteomyelitis given his chronic drainage and potential exposure to the medial metaphysis of the tibia. All his questions were answered at present and I will continue to follow along with Vascular Surgery pending the above studies. He can weightbear as tolerated in the interim and I would continue daily dressing changes and change this dressing today after examination of his wound. JOSE TORRES MD DR: JONO/charles JOB#: [id number] / [id number]
[2019-04-16 23:00] VITALS: BP 133/79
[2019-04-16] MEDS ORDERED: CEPHALEXIN 250 MG CAPSULE. PO SCH (23:45)
[2019-04-17 03:00] VITALS: BP 124/68
[2019-04-17] MEDS: oxyCODONE IR 5 MG TABLET PO PRN (06:44)
[2019-04-17 07:00] VITALS: BP 140/71
[2019-04-17] MEDS: IPRATRPIUM/ALBUTEROL 0.5/2.5MG 3 ML NEBU. NEB SCH ×4 (08:22→20:45)
[2019-04-17] MEDS: BUDESONIDE 0.5 MG/2 ML NEBU. NEB SCH ×2 (08:22→20:45)
[2019-04-17] MEDS: LACTOBACILLUS RHAMNOSUS GG 1 CAPSULE. PO SCH ×3 (08:28→20:58)
[2019-04-17] MEDS: CHOLECALCIFEROL (VITAMIN D3) 1,000 UNIT TABLET PO SCH (08:28)
[2019-04-17] MEDS: SERTRALINE 50 MG TABLET. PO SCH (08:29)
[2019-04-17] MEDS: POTASSIUM CHLORIDE 20 MEQ TABLET.ER. PO SCH (08:29)
[2019-04-17] MEDS: LOSARTAN POTASSIUM 50 MG TABLET. PO SCH (08:30)
[2019-04-17] MEDS: FUROSEMIDE 40 MG TABLET. PO SCH ×2 (08:30→14:07)
[2019-04-17] MEDS: TRIHEXYPHENIDYL 2 MG TABLET. PO SCH ×2 (08:30→11:50)
[2019-04-17] MEDS: amLODIPine BESYLATE 10 MG TABLET PO SCH (08:30)
[2019-04-17] MEDS: VITAMIN B COMPLEX TABLET. PO SCH (08:30)
[2019-04-17] MEDS: METOPROLOL TART IMMED RELEASE 25 MG TABLET. PO SCH ×2 (08:31→20:59)
[2019-04-17] MEDS: MELOXICAM 7.5 MG TABLET PO SCH ×2 (08:32→21:00)
[2019-04-17] MEDS: BENZTROPINE MESYLATE 1 MG TABLET. PO SCH ×2 (08:32→20:57)
[2019-04-17] MEDS: DOCUSATE SODIUM 100 MG CAPSULE. PO SCH ×2 (08:32→20:59)
[2019-04-17] MEDS: DOXYCYCLINE HYCLATE 100 MG TABLET PO SCH ×2 (08:32→20:59)
[2019-04-17] MEDS: FAMOTIDINE 20 MG TABLET. PO SCH ×2 (08:35→20:59)
[2019-04-17] MEDS: CEFEPIME HCL IV Push 2 GM VIAL. IVP SCH ×2 (08:36→22:45)
[2019-04-17] MEDS: hydroCHLOROthiazide 25 MG TABLET PO SCH (08:36)
--- NOTE | 2019-04-17 09:21 | PDOC ---
Infectious Disease Note Subjective: Subjective pt without complaints denies any f//n/v/d sob and cough are improving ROS: ROS Negative except for above. Vital Signs: Vital Signs Vital Signs Date Time Temp Pulse Resp B/P (MAP) Pulse Ox O2 Delivery O2 Flow Rate FiO2 04/17/19 08:31 91 140/71 04/17/19 08:24 94 Room Air 04/17/19 08:24 2.0 04/17/19 07:00 98.3 20 98.3 Physical Exam: PHYSICAL EXAM GENERAL: Alert, oriented, somewhat confused male sitting in chair, in no acute distress, cooperative, pleasant. HEENT: Normocephalic, atraumatic, anicteric. NECK: Supple. No JVD. LUNGS: Clear bilaterally, no wheezing. HEART: S1, S2, no gallops or murmurs. ABDOMEN: Soft, obese. Bowel sounds present, nontender, nondistended. GENITOURINARY: Olivarez in place. CENTRAL NERVOUS SYSTEM: Alert, awake, somewhat confused, does have some trouble with memory. Able to move all 4 extremities. DERMATOLOGIC: Warm, dry. No generalized rash. EXTREMITIES: Left lower extremity swelling present. Scar over the lateral aspect around the ankle well healed. Venous stasis ulcer present on the medial aspect. No purulent drainage. Does not have any sinus tract, does not appear to be communicating to the lateral HW in place PSYCHIATRIC: Cooperative, appropriate mood and affect. Medications: Inpatient Meds: Current Medications Medications (Trade) Dose Ordered Sig/Akanksha Start Time Stop Time Status Last Admin Dose Admin Acetaminophen (Tylenol) 650 mg PRN Q6HRS PRN 04/15/19 19:00 Albuterol Sulfate (Ventolin Neb Soln) 2.5 mg PRN Q4HRS PRN 04/15/19 19:00 04/15/19 21:24 2.5 MG Albuterol/ Ipratropium (Duoneb) 3 ml RTQID 04/16/19 12:00 04/17/19 08:22 3 ML Amlodipine Besylate (Norvasc) 10 mg DAILY 04/16/19 09:00 04/17/19 08:30 10 MG Artificial Tears (Artificial Tears) 1 drop PRN QID PRN 04/15/19 23:30 Atorvastatin Calcium (Lipitor) 40 mg QHS 04/16/19 21:00 04/16/19 20:53 40 MG Benztropine Mesylate (Cogentin) 4 mg DAILY08 04/16/19 08:00 04/17/19 08:32 4 MG Bisacodyl (Dulcolax Supp) 10 mg PRN DAILY PRN 04/15/19 19:00 Budesonide (Pulmicort) 0.5 mg RTBID 04/16/19 09:30 04/17/19 08:22 0.5 MG Calcium Carbonate/ Glycine (Tums) 500 mg PRN Q3HRS PRN 04/15/19 19:00 Cefepime HCl (Maxipime) 2 gm Q12HR 04/16/19 12:00 04/17/19 08:36 2 GM Cephalexin HCl (Keflex) 500 mg TID 04/16/19 23:45 04/16/19 23:45 DC Clonidine HCl (Catapres) 0.1 mg PRN Q1HR PRN 04/15/19 19:00 Docusate Sodium (Colace) 100 mg BID 04/15/19 21:00 04/17/19 08:32 100 MG Doxycycline Hyclate (Vibra-Tab) 100 mg BID 04/16/19 12:00 04/17/19 08:32 100 MG Famotidine (Pepcid) 20 mg BID 04/16/19 09:00 04/17/19 08:35 20 MG Furosemide (Lasix) 40 mg BID94 04/16/19 09:00 04/17/19 08:30 40 MG Hydrochlorothiazide (Hydrodiuril) 50 mg DAILY 04/16/19 09:00 04/17/19 08:36 50 MG Hydroxyzine Pamoate (Vistaril) 25 mg PRN TID PRN 04/16/19 13:25 Hydroxyzine HCl (Atarax) 25 mg PRN TID PRN 04/15/19 22:45 04/16/19 13:25 DC Lactobacillus Rhamnosus (Culturelle) 1 cap TID 04/16/19 09:00 04/17/19 08:28 1 CAP Losartan Potassium (Cozaar) 100 mg DAILY 04/16/19 09:00 04/17/19 08:30 100 MG Magnesium Hydroxide (Milk Of Magnesia) 2,400 mg PRN Q12HR PRN 04/15/19 19:00 Meloxicam (Mobic) 7.5 mg BID 04/16/19 09:00 04/17/19 08:32 7.5 MG Metoprolol Tartrate (Lopressor) 75 mg BID 04/16/19 09:00 04/17/19 08:31 75 MG Morphine Sulfate (Morphine Sulfate) 2 mg PRN Q2HR PRN 04/15/19 19:00 Non-Formulary Medication (Sildenafil Citrate (Viagra)) 1 tab PRN DAILY 04/15/19 22:45 UNV Ondansetron HCl (Zofran) 4 mg PRN Q6HRS PRN 04/15/19 19:00 Oxycodone HCl (Roxicodone) 5 mg PRN Q3HRS PRN 04/15/19 19:00 04/17/19 06:44 5 MG Potassium Chloride (Klor-Con) 20 meq DAILYWBKFT 04/16/19 08:00 04/17/19 08:29 20 MEQ Prochlorperazine Edisylate (Compazine) 10 mg PRN Q6HRS PRN 04/15/19 19:00 Risperidone (RisperDAL) 4 mg QHS 04/15/19 23:30 04/16/19 20:50 4 MG Sertraline HCl (Zoloft) 150 mg DAILY 04/16/19 09:00 04/17/19 08:29 150 MG Tamsulosin HCl (Flomax) 0.4 mg QHS 04/16/19 21:00 04/16/19 20:53 0.4 MG Trazodone HCl (Desyrel) 150 mg QHS 04/15/19 23:30 04/16/19 20:51 150 MG Trihexyphenidyl HCl (Artane) 10 mg DAILYWLUN 04/16/19 12:00 Vitamin B Complex (Cricket B) 1 tab DAILY 04/16/19 09:00 04/17/19 08:30 1 TAB Vitamin D (Vitamin D3) 2,000 unit DAILY 04/16/19 09:00 04/17/19 08:28 2,000 UNIT Labs: Lab reviewed Objective: Assessment: Recent pneumonia at [facility] admitted to ICU improving Chronic venous stasis Lt chronic venous ulcer ? unknown duration . Leucocytosis and lactic acidosis at osh resolved Chr diastolic heart failure h/o LLE HW in place for more than 25 yrs Plan: Plan of Care cont cefepime and doxycycline for now on antidepressants f/u MRI LLE Ortho following Cont local wound care Elevate LLE f/u echo HARSHIL JAMESON MD April 17, 2019 09:21
[2019-04-17 11:00] VITALS: BP 151/80
--- NOTE | 2019-04-17 11:17 | CARD ---
MR#: [id number] Date of Study: 04/17/2019 Ordering Physician: BUTCH OAKLEY, Referring Physician: RISSA YATES Tech: Nora Bennett ODILON APPROVED REPORT EXAM: Two-dimensional and M-mode echocardiogram with Doppler and color Doppler. Other Information Quality : Good INDICATION Congestive Heart Failure 2D DIMENSIONS RVDd3.6 (2.9-3.5cm)Left Atrium(2D)3.2 (1.6-4.0cm) IVSd1.0 (0.7-1.1cm)Aortic Root(2D)3.5 (2.0-3.7cm) LVDd5.1 (3.9-5.9cm)LVOT Diameter2.3 (1.8-2.4cm) PWd0.9 (0.7-1.1cm)LVDs3.7 (2.5-4.0cm) FS (%) 27.6 %SV66.5 ml LVEF(%)55.0 (>50%) Aortic Valve AoV Peak Teja.130.3cm/sAoV VTI20.7cm AO Peak GR.6.8mmHgLVOT Peak Teja.126.7cm/s AO Mean GR.3mmHgAVA (VMAX)4.20cm2 JANET (VTI)4.90cm2 Mitral Valve MV E Sirwbaxl95.3cm/sMV DECEL [id number] MV A Ezxwsrax01.8cm/sE/A Ratio0.9 Tricuspid Valve TR P. Xuslyeob002zl/sRAP [id number] TR Peak Gr.68xxElQEOS60qmMd Pulmonary Vein S1 Cnwaebbz74.4cm/sD2 Vkqcgcob59.3cm/s LEFT VENTRICLE The left ventricle is normal size. There is normal left ventricular wall thickness. The left ventricu lar systolic function is normal and the ejection fraction is within normal range. The Ejection Fracti on is 55-60%. There is normal LV segmental wall motion. Transmitral Doppler flow pattern is Grade I-a bnormal relaxation pattern. RIGHT VENTRICLE The right ventricle is mildly dilated. The right ventricular systolic function is normal. ATRIA The left atrium size is normal. The right atrium is mildly dilated. The interatrial septum is intact with no evidence for an atrial septal defect or patent foramen ovale as noted on 2-D or Doppler imagi ng. AORTIC VALVE The aortic valve is calcified but opens well. Doppler and Color Flow revealed no significant aortic r egurgitation. There is no significant aortic valvular stenosis. MITRAL VALVE The mitral valve is calcified but opens well. There is no evidence of mitral valve prolapse. There is no mitral valve stenosis. Doppler and Color Flow revealed no mitral valve regurgitation noted. TRICUSPID VALVE The tricuspid valve is normal in structure and function. Doppler and Color Flow revealed trace tricus pid regurgitation. The PA pressure was estimated at 39 mmHg. There is no tricuspid valve stenosis. PULMONIC VALVE The pulmonic valve is not well visualized. Doppler and Color Flow revealed no pulmonic valvular regur gitation. There is no pulmonic valvular stenosis. GREAT VESSELS The aortic root is normal in size. The ascending aorta is normal in size. The IVC is normal in size a nd collapses >50% with inspiration. PERICARDIAL EFFUSION There is no evidence of significant pericardial effusion. Critical Notification Critical Value: No <Conclusion> The left ventricular systolic function is normal and the ejection fraction is within normal range. Th e Ejection Fraction is 55-60%. There is normal LV segmental wall motion. Signed by : Spike Tamez, Electronically Approved : 04/17/2019 11:17:06
[2019-04-17] MEDS: ENOXAPARIN 40 MG/0.4 ML SYRINGE. SQ SCH (11:50)
--- NOTE | 2019-04-17 12:35 | PDOC ---
PROGRESS NOTES Chief Complaint Chief Complaint leg leg cellulitis with wound, swelling and pain, has history of hardware to left leg, has been on disability 30 years for leg injury hx venous stasis ulcer, has followed with wound clinic obesity, BMI 38 COPD, treated for pneumonia at [facility] yesterday, afib, on xarelto, on hold, cognitive decline, lives in assisted living, schizoaffective hx with depression, on meds History of Present Illness History of Present Illness much more alert, bright today and conversant on Lovenox proph, should change back to Xarelto if no surg plans, and likely not pt and ot cont IV abx Vitals Vitals Vital Signs Date Time Temp Pulse Resp B/P (MAP) Pulse Ox O2 Delivery O2 Flow Rate FiO2 04/17/19 08:31 91 140/71 04/17/19 08:24 94 Room Air 04/17/19 08:24 2.0 04/17/19 07:00 98.3 20 98.3 Physical Exam Physical Exam GENERAL: Alert, oriented, somewhat confused male sitting in chair, in no acute distress, cooperative, pleasant. HEENT: Normocephalic, atraumatic, anicteric. NECK: Supple. No JVD. LUNGS: Clear bilaterally, no wheezing. HEART: S1, S2, no gallops or murmurs. ABDOMEN: Soft, obese. Bowel sounds present, nontender, nondistended. GENITOURINARY: Olivarez in place. CENTRAL NERVOUS SYSTEM: Alert, awake, somewhat confused, does have some trouble with memory. Able to move all 4 extremities. DERMATOLOGIC: Warm, dry. No generalized rash. EXTREMITIES: Left lower extremity swelling present. Scar over the lateral aspect around the ankle well healed. Venous stasis ulcer present on the medial aspect. No purulent drainage. Does not have any sinus tract, does not appear to be communicating to the lateral HW in place PSYCHIATRIC: Cooperative, appropriate mood and affect. General: Alert, Cooperative, mild distress, Other Abdomen: Normal bowel sounds, Soft (obese, NT, ), Other Extremities: No cyanosis, Other (tr edema, left, ) Skin: Other (redness, to upper ogden, has receded from marked area, ) Review of Systems Review of Systems no nv..d feels stronger, better Comment Review of Relevant I have reviewed the following items dragan (where applicable) has been applied. Labs Laboratory Tests Test 5/27/19 03:00 04/16/19 04:15 04/16/19 05:00 Urine Collection Type Unknown Urine Color Yellow Urine Clarity Clear Urine pH 7.0 Urine Specific [place] 1.015 Urine Protein Negative mg/dL (NEG-TRACE) Urine Glucose (UA) Negative mg/dL (NEG) Urine Ketones (Stick) Negative mg/dL (NEG) Urine Blood Large (NEG) Urine Nitrite Negative (NEG) Urine Bilirubin Negative (NEG) Urine Urobilinogen Dipstick 0.2 mg/dL (0.2 mg/dL) Urine Leukocyte Esterase Small (NEG) Urine RBC Tntc /HPF (0-2) Urine WBC 5-10 /HPF (0-4) Urine Squamous Epithelial Cells Occ /LPF Urine Bacteria 0 /HPF (0-FEW) Urine Hyaline Casts Few /HPF Urine Mucus Mod /LPF Urine Yeast Present /HPF White Blood Count 7.3 x10^3/uL (4.0-11.0) Red Blood Count 3.73 x10^6/uL (4.30-5.70) Hemoglobin 11.0 g/dL (13.0-17.5) Hematocrit 32.8 % (39.0-53.0) Mean Corpuscular Volume 88 fL (79-100) Mean Corpuscular Hemoglobin 30 pg (25-35) Mean Corpuscular Hemoglobin Concent 33 g/dL (31-37) Red Cell Distribution Width 14.5 % (11.5-14.5) Platelet Count 180 x10^3/uL (140-400) Neutrophils (%) (Auto) 74 % (31-73) Lymphocytes (%) (Auto) 14 % (24-48) Monocytes (%) (Auto) 9 % (0-9) Eosinophils (%) (Auto) 2 % (0-3) Basophils (%) (Auto) 1 % (0-3) Neutrophils # (Auto) 5.4 x10^3uL (1.8-7.7) Lymphocytes # (Auto) 1.0 x10^3/uL (1.0-4.8) Monocytes # (Auto) 0.7 x10^3/uL (0.0-1.1) Eosinophils # (Auto) 0.2 x10^3/uL (0.0-0.7) Basophils # (Auto) 0.0 x10^3/uL (0.0-0.2) Erythrocyte Sedimentation Rate 63 (0-15) Prothrombin Time 14.7 SEC (11.7-14.0) Prothromb Time International Ratio 1.2 (0.8-1.1) Sodium Level 144 mmol/L (136-145) Potassium Level 3.4 mmol/L (3.5-5.1) Chloride Level 107 mmol/L (98-107) Carbon Dioxide Level 27 mmol/L (21-32) Anion Gap 10 (6-14) Blood Urea Nitrogen 21 mg/dL (8-26) Creatinine 1.1 mg/dL (0.7-1.3) Estimated GFR (Cockcroft-Gault) 66.2 Glucose Level 143 mg/dL (70-99) Calcium Level 9.3 mg/dL (8.5-10.1) Nasal Screen MRSA (PCR) Negative (Negative) Microbiology 04/15/19 Blood Culture - Preliminary, Resulted NO GROWTH AFTER 1 DAY Medications Current Medications Ondansetron HCl (Zofran) 4 mg PRN Q6HRS PRN IV NAUSEA/VOMITING, 1st CHOICE; Start 04/15/19 at 19:00 Prochlorperazine Edisylate (Compazine) 10 mg PRN Q6HRS PRN IV NAUSEA/VOMITING, 2nd CHOICE; Start 04/15/19 at 19:00 Calcium Carbonate/ Glycine (Tums) 500 mg PRN Q3HRS PRN PO UPSET STOMACH; Start 04/15/19 at 19:00 Oxycodone HCl (Roxicodone) 5 mg PRN Q3HRS PRN PO BREAKTHROUGH PAIN Last administered on 04/17/19at 06:44; Start 04/15/19 at 19:00 Morphine Sulfate (Morphine Sulfate) 2 mg PRN Q2HR PRN IV PAIN; Start 04/15/19 at 19:00 Acetaminophen (Tylenol) 650 mg PRN Q6HRS PRN PO Headaches, Temp > 101.5F; Start 04/15/19 at 19:00 Docusate Sodium (Colace) 100 mg BID PO Last administered on 04/17/19at 08:32; Start 04/15/19 at 21:00 Magnesium Hydroxide (Milk Of Magnesia) 2,400 mg PRN Q12HR PRN PO CONSTIPATION; Start 04/15/19 at 19:00 Bisacodyl (Dulcolax Supp) 10 mg PRN DAILY PRN [place] CONSTIPATION; Start 04/15/19 at 19:00 Albuterol Sulfate (Ventolin Neb Soln) 2.5 mg PRN Q4HRS PRN NEB SHORTNESS OF BREATH Last administered on 04/15/19at 21:24; Start 04/15/19 at 19:00 Clonidine HCl (Catapres) 0.1 mg PRN Q1HR PRN PO HYPERTENSION; Start 04/15/19 at 19:00 Amlodipine Besylate (Norvasc) 10 mg DAILY PO Last administered on 04/17/19 08:30; Start 04/16/19 at 09:00 Atorvastatin Calcium (Lipitor) 40 mg QHS PO Last administered on 04/16/19 20:53; Start 04/16/19 at 21:00 Vitamin D (Vitamin D3) 2,000 unit DAILY PO Last administered on 04/17/19 08:28; Start 04/16/19 at 09:00 Furosemide (Lasix) 40 mg BID94 PO Last administered on 04/17/19 08:30; Start 04/16/19 at 09:00 Hydroxyzine HCl (Atarax) 25 mg PRN TID PRN PO ITCHING; Start 04/15/19 at 22:45; Stop 04/16/19 at 13:25; Status DC Metoprolol Tartrate (Lopressor) 75 mg BID PO Last administered on 04/17/19 08:31; Start 04/16/19 at 09:00 Tamsulosin HCl (Flomax) 0.4 mg QHS PO Last administered on 04/16/19 20:53; Start 04/16/19 at 21:00 Benztropine Mesylate (Cogentin) 2 mg QHS PO Last administered on 04/16/19 20:51; Start 04/15/19 at 23:30 Benztropine Mesylate (Cogentin) 4 mg DAILY08 PO Last administered on 04/17/19 08:32; Start 04/16/19 at 08:00 Artificial Tears (Artificial Tears) 1 drop PRN QID PRN OU DRY EYE; Start 04/15/19 at 23:30 Cephalexin HCl (Keflex) 500 mg TID PO ; Start 04/16/19 at 23:45; Stop 04/16/19 at 23:45; Status DC Hydrochlorothiazide (Hydrodiuril) 50 mg DAILY PO Last administered on 04/17/19 08:36; Start 04/16/19 at 09:00 Lactobacillus Rhamnosus (Culturelle) 1 cap TID PO Last administered on 04/17/19 08:28; Start 04/16/19 at 09:00 Losartan Potassium (Cozaar) 100 mg DAILY PO Last administered on 04/17/19 08:30; Start 04/16/19 at 09:00 Meloxicam (Mobic) 7.5 mg BID PO Last administered on 04/17/19 08:32; Start 04/16/19 at 09:00 Potassium Chloride (Klor-Con) 20 meq DAILYWBKFT PO Last administered on 04/17/19 08:29; Start 04/16/19 at 08:00 Famotidine (Pepcid) 20 mg BID PO Last administered on 04/17/19 08:35; Start 04/16/19 at 09:00 Risperidone (RisperDAL) 4 mg QHS PO Last administered on 04/16/19 20:50; Start 04/15/19 at 23:30 Sertraline HCl (Zoloft) 150 mg DAILY PO Last administered on 04/17/19 08:29; Start 04/16/19 at 09:00 Non-Formulary Medication (Sildenafil Citrate (Viagra)) 1 tab PRN DAILY PO ; Start 04/15/19 at 22:45; Status UNV Trazodone HCl (Desyrel) 150 mg QHS PO Last administered on 04/16/19 20:51; Start 04/15/19 at 23:30 Trihexyphenidyl HCl (Artane) 5 mg DAILY08 PO Last administered on 04/17/19 08:30; Start 04/16/19 at 08:00 Trihexyphenidyl HCl (Artane) 10 mg DAILYWLUN PO Last administered on 04/17/19 11:50; Start 04/16/19 at 12:00 Vitamin B Complex (Cricket B) 1 tab DAILY PO Last administered on 04/17/19 08:30; Start 04/16/19 at 09:00 Albuterol/ Ipratropium (Duoneb) 3 ml RTQID NEB Last administered on 04/17/19at 08:22; Start 04/16/19 at 12:00 Budesonide (Pulmicort) 0.5 mg RTBID NEB Last administered on 04/17/19at 08:22; Start 04/16/19 at 09:30 Cefepime HCl (Maxipime) 2 gm Q12HR IVP Last administered on 04/17/19at 08:36; Start 04/16/19 at 12:00 Doxycycline Hyclate (Vibra-Tab) 100 mg BID PO Last administered on 04/17/19at 08:32; Start 04/16/19 at 12:00 Hydroxyzine Pamoate (Vistaril) 25 mg PRN TID PRN PO ITCHING; Start 04/16/19 at 13:25 Enoxaparin Sodium (Lovenox Per Pharmacy Prophylaxis Dosing) 1 each PRN DAILY PRN MC SEE COMMENTS; Start 04/17/19 at 10:45 Enoxaparin Sodium (Lovenox 40mg Syringe) 40 mg Q24H SQ Last administered on 04/17/19at 11:50; Start 04/17/19 at 12:00 Active Scripts Active Reported Flomax (Tamsulosin Hcl) 0.4 Mg Cap.er.24h 1 Cap PO QHS Losartan Potassium 100 Mg Tablet 100 Mg PO DAILY Vitamin D3 (Cholecalciferol (Vitamin D3)) 1,000 Unit Tablet 2 Tab PO DAILY Aspirin 325 Mg Tablet 1 Tab PO DAILY Amlodipine Besylate 10 Mg Tablet 10 Mg PO DAILY Trazodone Hcl 50 Mg Tablet 3 Tab PO QHS Cephalexin 500 Mg Capsule 2 Cap PO TID Tylenol (Acetaminophen) 325 Mg Tablet 1-2 Tab PO QID Gnp B-Complex Tablet (Vit B Comp & C/Calcium Carb) 1 Each Tablet 1 Each PO DAILY Trihexyphenidyl Hcl 5 Mg Tablet 2 Tab PO DAILYWLUN Trihexyphenidyl Hcl 5 Mg Tablet 1 Tab PO DAILY08 Viagra (Sildenafil Citrate) 100 Mg Tablet 1 Tab PO PRN DAILY Zoloft (Sertraline Hcl) 100 Mg Tablet 1.5 Tab PO DAILY Xarelto (Rivaroxaban) 20 Mg Tablet 20 Mg PO DAILY Risperidone 4 Mg Tablet 1 Tab PO QHS Ranitidine Hcl 150 Mg Tablet 1 Tab PO BID Potassium Chloride 20 Meq Tablet.er 20 Meq PO DAILY Metoprolol Tartrate 50 Mg Tablet 1.5 Tab PO BID Meloxicam 7.5 Mg Tablet 1 Tab PO BID Acidophilus (Lactobacillus Acidophilus) 1 Each Capsule 1 Each PO TID Hydroxyzine Hcl 25 Mg Tablet 1 Tab PO PRN TID PRN Hydrochlorothiazide Tablet (Hydrochlorothiazide) 50 Mg Tablet 50 Mg PO DAILY Furosemide 40 Mg Tablet 40 Mg PO BID Docusate Sodium 100 Mg Capsule 1 Cap PO BID Refresh Optive Eye Drops (Carboxymethylcellulos/Glycerin) 15 Ml Drops 1 Drop EACHEYE PRN QID PRN Benztropine Mesylate 2 Mg Tablet 1 Tab PO QHS Benztropine Mesylate 2 Mg Tablet 2 Tab PO DAILY08 Atorvastatin Calcium 40 Mg Tablet 1 Tab PO QHS Proair Hfa Inhaler (Albuterol Sulfate) 8.5 Gm Hfa.aer.ad 2 Puff INH PRN Q6HRS PRN Vitals/I & O Vital Sign - Last 24 Hours 04/16/19 04/16/19 04/16/19 04/16/19 13:14 15:00 16:33 19:00 Temp 96.6 98.7 96.6 98.7 Pulse 82 100 Resp 18 18 B/P (MAP) 122/59 (80) 130/76 (94) Pulse Ox 95 94 92 92 O2 Delivery Room Air Room Air Room Air Room Air 04/16/19 04/16/19 04/16/19 04/16/19 19:50 20:52 21:00 23:00 Temp 97.7 97.7 Pulse 100 86 Resp 18 B/P (MAP) 130/76 133/79 (97) Pulse Ox 92 O2 Delivery Room Air Room Air Room Air 04/16/19 04/17/19 04/17/19 04/17/19 23:11 03:00 06:44 07:00 Temp 98.6 98.3 98.6 98.3 Pulse 98 91 Resp 18 20 B/P (MAP) 124/68 (86) 140/71 (94) Pulse Ox 93 86 O2 Delivery Room Air Room Air Room Air Room Air 04/17/19 04/17/19 04/17/19 04/17/19 07:50 08:00 08:24 08:24 Pulse Ox 94 94 O2 Delivery Room Air Room Air Nasal Cannula Room Air O2 Flow Rate 2.0 04/17/19 04/17/19 04/17/19 08:30 08:30 08:31 Pulse 91 91 91 B/P (MAP) 140/71 140/71 140/71 Intake and Output 04/16/19 04/16/19 04/17/19 14:59 22:59 06:59 Intake Total 600 ml Output Total 450 ml Balance -450 ml 600 ml BUTCH OAKLEY MD April 17, 2019 12:35
--- NOTE | 2019-04-17 14:26 | PDOC2 ---
CONSULT Date of Consult Date of Consult DATE: 04/17/19 TIME: 14:07 Reason for Consult Reason for Consult: Left leg nonhealing wound Referring Physician Referring Physician: Rashmi Identification/Chief Complaint Chief Complaint Left leg wound Source Source: Patient History of Present Illness Reason for Visit: Pleasant 68 year old male with history of Afib, HTN, left tibial fracture and reconstruction years ago that has a left leg wound that has been present since his leg surgery (years). This has been treating with wound care, but has failed to heal completely. He came to the hospital due to cellulitis and is being treated with antibiotics. He reports pain to the bottom of this foot which is moderate to severe, worse to touch and when walking. He also has pain to mid ogden area near leg wound, this is mild. The patient reports having a skin graft procedure on the plantar surface of his right foot some years ago which has since healed, but he does have a callous along ball of right foot that bothers him. He has noticed erythema extending up his leg. He denies any arterial history. He denies diabetic history. He did used to be a heavy tobacco user, quit 8-10 years ago. He has afib and his xarelto has been held. An MRI has been ordered, yet to be done. TCOM's also pending. Past Medical History Cardiovascular: AFIB, HTN, Hyperlipidemia Hepatobiliary: No pertinent hx Psych: Depression, Other (schizotyoal) Musculoskeletal: low back pain, Osteoarthritis ENT: No pertinent hx Endocrine: No pertinent hx Dermatology: No pertinent hx Past Surgical History Past Surgical History Right leg tibial reconstruction? Right foot skin graft Past Surgical History: Other (left leg hardware many years ago) Family History Family History: No Significant Social History Social History Quit smoking 8-10 years ago Social History: Parent, Grandparents Quit ALCOHOL: none Drugs: None Current Problem List Problem List Cellulitis, nonhealing wound Current Medications Current Medications Current Medications Ondansetron HCl (Zofran) 4 mg PRN Q6HRS PRN IV NAUSEA/VOMITING, 1st CHOICE; Start 04/15/19 at 19:00 Prochlorperazine Edisylate (Compazine) 10 mg PRN Q6HRS PRN IV NAUSEA/VOMITING, 2nd CHOICE; Start 04/15/19 at 19:00 Calcium Carbonate/ Glycine (Tums) 500 mg PRN Q3HRS PRN PO UPSET STOMACH; Start 04/15/19 at 19:00 Oxycodone HCl (Roxicodone) 5 mg PRN Q3HRS PRN PO BREAKTHROUGH PAIN Last administered on 04/17/19at 06:44; Start 04/15/19 at 19:00 Morphine Sulfate (Morphine Sulfate) 2 mg PRN Q2HR PRN IV PAIN; Start 04/15/19 at 19:00 Acetaminophen (Tylenol) 650 mg PRN Q6HRS PRN PO Headaches, Temp > 101.5F; Start 04/15/19 at 19:00 Docusate Sodium (Colace) 100 mg BID PO Last administered on 04/17/19at 08:32; Start 04/15/19 at 21:00 Magnesium Hydroxide (Milk Of Magnesia) 2,400 mg PRN Q12HR PRN PO CONSTIPATION; Start 04/15/19 at 19:00 Bisacodyl (Dulcolax Supp) 10 mg PRN DAILY PRN [place] CONSTIPATION; Start 04/15/19 at 19:00 Albuterol Sulfate (Ventolin Neb Soln) 2.5 mg PRN Q4HRS PRN NEB SHORTNESS OF BREATH Last administered on 04/15/19at 21:24; Start 04/15/19 at 19:00 Clonidine HCl (Catapres) 0.1 mg PRN Q1HR PRN PO HYPERTENSION; Start 04/15/19 at 19:00 Amlodipine Besylate (Norvasc) 10 mg DAILY PO Last administered on 04/17/19at 08:30; Start 04/16/19 at 09:00 Atorvastatin Calcium (Lipitor) 40 mg QHS PO Last administered on 04/16/19at 20:53; Start 04/16/19 at 21:00 Vitamin D (Vitamin D3) 2,000 unit DAILY PO Last administered on 04/17/19at 08:28; Start 04/16/19 at 09:00 Furosemide (Lasix) 40 mg BID94 PO Last administered on 04/17/19at 08:30; Start 04/16/19 at 09:00 Hydroxyzine HCl (Atarax) 25 mg PRN TID PRN PO ITCHING; Start 04/15/19 at 22:45; Stop 04/16/19 at 13:25; Status DC Metoprolol Tartrate (Lopressor) 75 mg BID PO Last administered on 04/17/19 08:31; Start 04/16/19 at 09:00 Tamsulosin HCl (Flomax) 0.4 mg QHS PO Last administered on 04/16/19 20:53; Start 04/16/19 at 21:00 Benztropine Mesylate (Cogentin) 2 mg QHS PO Last administered on 04/16/19 20:51; Start 04/15/19 at 23:30 Benztropine Mesylate (Cogentin) 4 mg DAILY08 PO Last administered on 04/17/19 08:32; Start 04/16/19 at 08:00 Artificial Tears (Artificial Tears) 1 drop PRN QID PRN OU DRY EYE; Start 04/15/19 at 23:30 Cephalexin HCl (Keflex) 500 mg TID PO ; Start 04/16/19 at 23:45; Stop 04/16/19 at 23:45; Status DC Hydrochlorothiazide (Hydrodiuril) 50 mg DAILY PO Last administered on 04/17/19 08:36; Start 04/16/19 at 09:00 Lactobacillus Rhamnosus (Culturelle) 1 cap TID PO Last administered on 04/17/19 08:28; Start 04/16/19 at 09:00 Losartan Potassium (Cozaar) 100 mg DAILY PO Last administered on 04/17/19 08:30; Start 04/16/19 at 09:00 Meloxicam (Mobic) 7.5 mg BID PO Last administered on 04/17/19 08:32; Start 04/16/19 at 09:00 Potassium Chloride (Klor-Con) 20 meq DAILYWBKFT PO Last administered on 04/17/19 08:29; Start 04/16/19 at 08:00 Famotidine (Pepcid) 20 mg BID PO Last administered on 04/17/19 08:35; Start 04/16/19 at 09:00 Risperidone (RisperDAL) 4 mg QHS PO Last administered on 04/16/19 20:50; Start 04/15/19 at 23:30 Sertraline HCl (Zoloft) 150 mg DAILY PO Last administered on 04/17/19 08:29; Start 04/16/19 at 09:00 Non-Formulary Medication (Sildenafil Citrate (Viagra)) 1 tab PRN DAILY PO ; Start 04/15/19 at 22:45; Status UNV Trazodone HCl (Desyrel) 150 mg QHS PO Last administered on 04/16/19 20:51; Start 04/15/19 at 23:30 Trihexyphenidyl HCl (Artane) 5 mg DAILY08 PO Last administered on 04/17/19 08:30; Start 04/16/19 at 08:00 Trihexyphenidyl HCl (Artane) 10 mg DAILYWLUN PO Last administered on 04/17/19 11:50; Start 04/16/19 at 12:00 Vitamin B Complex (Cricket B) 1 tab DAILY PO Last administered on 04/17/19 08:30; Start 04/16/19 at 09:00 Albuterol/ Ipratropium (Duoneb) 3 ml RTQID NEB Last administered on 04/17/19 12:42; Start 04/16/19 at 12:00 Budesonide (Pulmicort) 0.5 mg RTBID NEB Last administered on 04/17/19 08:22; Start 04/16/19 at 09:30 Cefepime HCl (Maxipime) 2 gm Q12HR IVP Last administered on 04/17/19 08:36; Start 04/16/19 at 12:00 Doxycycline Hyclate (Vibra-Tab) 100 mg BID PO Last administered on 04/17/19 08:32; Start 04/16/19 at 12:00 Hydroxyzine Pamoate (Vistaril) 25 mg PRN TID PRN PO ITCHING; Start 04/16/19 at 13:25 Enoxaparin Sodium (Lovenox Per Pharmacy Prophylaxis Dosing) 1 each PRN DAILY PRN MC SEE COMMENTS; Start 04/17/19 at 10:45 Enoxaparin Sodium (Lovenox 40mg Syringe) 40 mg Q24H SQ Last administered on 04/17/19 11:50; Start 04/17/19 at 12:00 Active Scripts Active Reported Flomax (Tamsulosin Hcl) 0.4 Mg Cap.er.24h 1 Cap PO QHS Losartan Potassium 100 Mg Tablet 100 Mg PO DAILY Vitamin D3 (Cholecalciferol (Vitamin D3)) 1,000 Unit Tablet 2 Tab PO DAILY Aspirin 325 Mg Tablet 1 Tab PO DAILY Amlodipine Besylate 10 Mg Tablet 10 Mg PO DAILY Trazodone Hcl 50 Mg Tablet 3 Tab PO QHS Cephalexin 500 Mg Capsule 2 Cap PO TID Tylenol (Acetaminophen) 325 Mg Tablet 1-2 Tab PO QID Gnp B-Complex Tablet (Vit B Comp & C/Calcium Carb) 1 Each Tablet 1 Each PO DAILY Trihexyphenidyl Hcl 5 Mg Tablet 2 Tab PO DAILYWLUN Trihexyphenidyl Hcl 5 Mg Tablet 1 Tab PO DAILY08 Viagra (Sildenafil Citrate) 100 Mg Tablet 1 Tab PO PRN DAILY Zoloft (Sertraline Hcl) 100 Mg Tablet 1.5 Tab PO DAILY Xarelto (Rivaroxaban) 20 Mg Tablet 20 Mg PO DAILY Risperidone 4 Mg Tablet 1 Tab PO QHS Ranitidine Hcl 150 Mg Tablet 1 Tab PO BID Potassium Chloride 20 Meq Tablet.er 20 Meq PO DAILY Metoprolol Tartrate 50 Mg Tablet 1.5 Tab PO BID Meloxicam 7.5 Mg Tablet 1 Tab PO BID Acidophilus (Lactobacillus Acidophilus) 1 Each Capsule 1 Each PO TID Hydroxyzine Hcl 25 Mg Tablet 1 Tab PO PRN TID PRN Hydrochlorothiazide Tablet (Hydrochlorothiazide) 50 Mg Tablet 50 Mg PO DAILY Furosemide 40 Mg Tablet 40 Mg PO BID Docusate Sodium 100 Mg Capsule 1 Cap PO BID Refresh Optive Eye Drops (Carboxymethylcellulos/Glycerin) 15 Ml Drops 1 Drop EACHEYE PRN QID PRN Benztropine Mesylate 2 Mg Tablet 1 Tab PO QHS Benztropine Mesylate 2 Mg Tablet 2 Tab PO DAILY08 Atorvastatin Calcium 40 Mg Tablet 1 Tab PO QHS Proair Hfa Inhaler (Albuterol Sulfate) 8.5 Gm Hfa.aer.ad 2 Puff INH PRN Q6HRS PRN Allergies Allergies: Coded Allergies: No Known Medication Allergies (Verified Allergy, Unknown, 04/15/19) Uncoded Allergies: dust (Allergy, Intermediate, SNEEZING, 04/15/19) Sneezing ROS General: No: Chills Hematological and Lymphatic: No: Blood Clots Respiratory: No: Cough, Shortness of breath Gastrointestinal: No Nausea, No Vomiting, No Diarrhea Musculoskeletal: No Gait Disturbance Skin: Yes Dry Skin, Yes Rash Physical Exam General: Alert, Oriented X3, Cooperative HEENT: Atraumatic Lungs: Normal air movement Heart: Other (Normal radial, femoral pulses. Bilateral pedal edema extending up midshin bilaterally. Cannot appreciate left pedal pulses to palpation. Right DP palpable. ) Abdomen: No tenderness, Other (Obese) Skin: Other (Left leg with erythema extending from foot to about 8cm below the knee, follows borders drawn upon admission. Left medial lower leg ulcer that penetrates to bone, minimal pustular drainage, some serous drainage. clean borders. Minimal pain to this. His left plantar foot has large callous along metatarsal heads, significant pain to this with palpation, not fluctuant. ) Vitals VITALS Vital Signs Date Time Temp Pulse Resp B/P (MAP) Pulse Ox O2 Delivery O2 Flow Rate FiO2 04/17/19 11:00 98.4 86 20 151/80 (103) 90 Room Air 98.4 04/17/19 08:24 2.0 Labs Labs Laboratory Tests Test 04/16/19 03:00 04/16/19 04:15 04/16/19 05:00 Urine Collection Type Unknown Urine Color Yellow Urine Clarity Clear Urine pH 7.0 Urine Specific [place] 1.015 Urine Protein Negative mg/dL (NEG-TRACE) Urine Glucose (UA) Negative mg/dL (NEG) Urine Ketones (Stick) Negative mg/dL (NEG) Urine Blood Large (NEG) Urine Nitrite Negative (NEG) Urine Bilirubin Negative (NEG) Urine Urobilinogen Dipstick 0.2 mg/dL (0.2 mg/dL) Urine Leukocyte Esterase Small (NEG) Urine RBC Tntc /HPF (0-2) Urine WBC 5-10 /HPF (0-4) Urine Squamous Epithelial Cells Occ /LPF Urine Bacteria 0 /HPF (0-FEW) Urine Hyaline Casts Few /HPF Urine Mucus Mod /LPF Urine Yeast Present /HPF White Blood Count 7.3 x10^3/uL (4.0-11.0) Red Blood Count 3.73 x10^6/uL (4.30-5.70) Hemoglobin 11.0 g/dL (13.0-17.5) Hematocrit 32.8 % (39.0-53.0) Mean Corpuscular Volume 88 fL (79-100) Mean Corpuscular Hemoglobin 30 pg (25-35) Mean Corpuscular Hemoglobin Concent 33 g/dL (31-37) Red Cell Distribution Width 14.5 % (11.5-14.5) Platelet Count 180 x10^3/uL (140-400) Neutrophils (%) (Auto) 74 % (31-73) Lymphocytes (%) (Auto) 14 % (24-48) Monocytes (%) (Auto) 9 % (0-9) Eosinophils (%) (Auto) 2 % (0-3) Basophils (%) (Auto) 1 % (0-3) Neutrophils # (Auto) 5.4 x10^3uL (1.8-7.7) Lymphocytes # (Auto) 1.0 x10^3/uL (1.0-4.8) Monocytes # (Auto) 0.7 x10^3/uL (0.0-1.1) Eosinophils # (Auto) 0.2 x10^3/uL (0.0-0.7) Basophils # (Auto) 0.0 x10^3/uL (0.0-0.2) Erythrocyte Sedimentation Rate 63 (0-15) Prothrombin Time 14.7 SEC (11.7-14.0) Prothromb Time International Ratio 1.2 (0.8-1.1) Sodium Level 144 mmol/L (136-145) Potassium Level 3.4 mmol/L (3.5-5.1) Chloride Level 107 mmol/L (98-107) Carbon Dioxide Level 27 mmol/L (21-32) Anion Gap 10 (6-14) Blood Urea Nitrogen 21 mg/dL (8-26) Creatinine 1.1 mg/dL (0.7-1.3) Estimated GFR (Cockcroft-Gault) 66.2 Glucose Level 143 mg/dL (70-99) Calcium Level 9.3 mg/dL (8.5-10.1) Nasal Screen MRSA (PCR) Negative (Negative) Assessment/Plan Assessment/Plan Nonhealing left lower leg wound - pt seen with Dr. Brady. - Will get arterial doppler to assess circulation - TCOM and MRI pending Pt will require wound debridement, however will await pending studies. We discussed this with patient at length who exhibited understanding and agreed. Can start on lovenox for anticoagulation after 48 hours of last Xarelto dose until evaluation complete. CHARLOTTE GARVIN April 17, 2019 14:26 YOBANI BRADY MD April 17, 2019 14:34
--- NOTE | 2019-04-17 14:42 | NUR ---
Transcutaneous testing completed. A copy will be placed in patients chart. The original will replace it once dictated.
[2019-04-17 15:00] VITALS: BP 147/74
--- NOTE | 2019-04-17 16:12 | NUR ---
[facility] following for discharge planning. Discussed with RN, pt is from [facility] (confirmed), needing MRI. PT/OT recommending SNU. [facility] met with pt and pt's brother/dpoa, Rudy. Pt initially refused SNU but would be agreeable to home health. [facility] discussed with pt the process of insurance needing to approve SNU and pt getting more rehab at SNU than at home, pt agreeable to SW sending referral to [facility] ([phone], fax: [phone]) and will revisit if approved. SW faxed referral, will continue to follow, RN notified.
--- NOTE | 2019-04-17 16:34 | RAD ---
Bilateral lower extremity arterial ultrasound History: Left leg nonhealing wound of the medial ankle Findings: Multiple grayscale, color, and duplex spectral analysis sonographic images were acquired of the lower extremity arteries bilaterally. On the right, there are monophasic waveforms of the posterior tibial and anterior tibial arteries, otherwise mostly biphasic and triphasic waveforms present. On the left, there are mostly monophasic waveforms beyond the common femoral artery level. There is prominent hyperechoic calcified plaque diffusely of the lower extremity arteries bilaterally. There are apparently more focal stenoses such as of the common femoral arteries bilaterally, also probably near the level of the mid left superficial artery as there are diffuse decreased velocities more distally. There is occlusion of the distal left posterior tibial artery. There are some collateral vessels bilaterally. Note is made of nonspecific left groin lymph nodes with largest about 2.8 x 1.6 x 0.8 cm. Velocities in cm/sec: RIGHT Common femoral artery 177 Profunda femoris artery 116 Proximal SFA 86 Mid SFA 106 Distal SFA 93 Popliteal artery 42 Posterior tibial artery 19 proximally and 38 distally Peroneal artery 57 Anterior tibial artery 28 Dorsalis pedis artery 48 LEFT: Common femoral artery 154 Profunda femoris artery 132 Proximal SFA 114 Mid SFA 158 Distal SFA 35 Popliteal artery 20 Posterior tibial artery 25 proximally, distally occluded Peroneal artery 63 Anterior tibial artery 36 Dorsalis pedis artery 54 Impression: 1. There is diffuse prominent calcified plaque bilaterally. Left distal posterior tibial artery is occluded. There are stenoses most notable bilateral common femoral arteries and mid left superficial femoral artery. Electronically signed by: Juan Pike MD (04/17/2019 4:32 PM) [id number]
[2019-04-17 19:25] VITALS: BP 158/72
[2019-04-17] MEDS: risperiDONE 1 MG TABLET. PO SCH (20:57)
[2019-04-17] MEDS: ATORVASTATIN CALCIUM 40 MG TABLET. PO SCH (20:58)
[2019-04-17] MEDS: traZODone 50 MG TABLET. PO SCH (20:58)
[2019-04-17] MEDS: TAMSULOSIN 0.4 MG CAP.ER.24H. PO SCH (20:58)
[2019-04-17 23:34] VITALS: BP 127/65
[2019-04-18 03:47] VITALS: BP 127/70
[2019-04-18 07:00] VITALS: BP 169/81
[2019-04-18] MEDS: BUDESONIDE 0.5 MG/2 ML NEBU. NEB SCH ×2 (07:07→20:13)
[2019-04-18] MEDS: IPRATRPIUM/ALBUTEROL 0.5/2.5MG 3 ML NEBU. NEB SCH ×4 (07:07→20:13)
[2019-04-18] MEDS: hydroCHLOROthiazide 25 MG TABLET PO SCH (08:27)
[2019-04-18] MEDS: CHOLECALCIFEROL (VITAMIN D3) 1,000 UNIT TABLET PO SCH (08:28)
[2019-04-18] MEDS: FAMOTIDINE 20 MG TABLET. PO SCH ×2 (08:28→21:02)
[2019-04-18] MEDS: BENZTROPINE MESYLATE 1 MG TABLET. PO SCH ×2 (08:28→21:01)
[2019-04-18] MEDS: TRIHEXYPHENIDYL 2 MG TABLET. PO SCH ×2 (08:28→13:20)
[2019-04-18] MEDS: LACTOBACILLUS RHAMNOSUS GG 1 CAPSULE. PO SCH ×3 (08:28→21:02)
[2019-04-18] MEDS: VITAMIN B COMPLEX TABLET. PO SCH (08:28)
[2019-04-18] MEDS: SERTRALINE 50 MG TABLET. PO SCH (08:29)
[2019-04-18] MEDS: METOPROLOL TART IMMED RELEASE 25 MG TABLET. PO SCH ×2 (08:29→21:02)
[2019-04-18] MEDS: MELOXICAM 7.5 MG TABLET PO SCH ×2 (08:30→21:03)
[2019-04-18] MEDS: amLODIPine BESYLATE 10 MG TABLET PO SCH (08:30)
[2019-04-18] MEDS: POTASSIUM CHLORIDE 20 MEQ TABLET.ER. PO SCH (08:30)
[2019-04-18] MEDS: LOSARTAN POTASSIUM 50 MG TABLET. PO SCH (08:30)
[2019-04-18] MEDS: CEFEPIME HCL IV Push 2 GM VIAL. IVP SCH ×2 (08:31→21:00)
[2019-04-18] MEDS: DOXYCYCLINE HYCLATE 100 MG TABLET PO SCH ×2 (08:31→21:02)
[2019-04-18] MEDS: DOCUSATE SODIUM 100 MG CAPSULE. PO SCH ×2 (08:31→21:03)
[2019-04-18] MEDS: FUROSEMIDE 40 MG TABLET. PO SCH ×2 (08:31→16:32)
--- NOTE | 2019-04-18 08:44 | PDOC ---
Infectious Disease Note Subjective: Subjective pt without complaints denies any f//n/v/d sob and cough are improving ROS: ROS Negative except for above. Vital Signs: Vital Signs Vital Signs Date Time Temp Pulse Resp B/P (MAP) Pulse Ox O2 Delivery O2 Flow Rate FiO2 04/18/19 08:30 87 169/81 04/18/19 07:07 90 Room Air 04/18/19 03:47 98.6 18 98.6 04/17/19 17:23 2.0 Physical Exam: PHYSICAL EXAM GENERAL: Alert, oriented, somewhat confused male sitting in chair, in no acute distress, cooperative, pleasant. HEENT: Normocephalic, atraumatic, anicteric. NECK: Supple. No JVD. LUNGS: Clear bilaterally, no wheezing. HEART: S1, S2, no gallops or murmurs. ABDOMEN: Soft, obese. Bowel sounds present, nontender, nondistended. GENITOURINARY: Olivarez in place. CENTRAL NERVOUS SYSTEM: Alert, awake, somewhat confused, does have some trouble with memory. Able to move all 4 extremities. DERMATOLOGIC: Warm, dry. No generalized rash. EXTREMITIES: Left lower extremity swelling present. Scar over the lateral aspect around the ankle well healed. Venous stasis ulcer present on the medial aspect. No purulent drainage. Does not have any sinus tract, does not appear to be communicating to the lateral HW in place PSYCHIATRIC: Cooperative, appropriate mood and affect. Medications: Inpatient Meds: Current Medications Medications (Trade) Dose Ordered Sig/Akanksha Start Time Stop Time Status Last Admin Dose Admin Acetaminophen (Tylenol) 650 mg PRN Q6HRS PRN 04/15/19 19:00 Albuterol Sulfate (Ventolin Neb Soln) 2.5 mg PRN Q4HRS PRN 04/15/19 19:00 04/15/19 21:24 2.5 MG Albuterol/ Ipratropium (Duoneb) 3 ml RTQID 04/16/19 12:00 04/18/19 07:07 3 ML Amlodipine Besylate (Norvasc) 10 mg DAILY 04/16/19 09:00 04/18/19 08:30 10 MG Artificial Tears (Artificial Tears) 1 drop PRN QID PRN 04/15/19 23:30 Atorvastatin Calcium (Lipitor) 40 mg QHS 04/16/19 21:00 04/17/19 20:58 40 MG Benztropine Mesylate (Cogentin) 4 mg DAILY08 04/16/19 08:00 04/18/19 08:28 4 MG Bisacodyl (Dulcolax Supp) 10 mg PRN DAILY PRN 04/15/19 19:00 Budesonide (Pulmicort) 0.5 mg RTBID 04/16/19 09:30 04/18/19 07:07 0.5 MG Calcium Carbonate/ Glycine (Tums) 500 mg PRN Q3HRS PRN 04/15/19 19:00 Cefepime HCl (Maxipime) 2 gm Q12HR 04/16/19 12:00 04/18/19 08:31 2 GM Cephalexin HCl (Keflex) 500 mg TID 04/16/19 23:45 04/16/19 23:45 DC Clonidine HCl (Catapres) 0.1 mg PRN Q1HR PRN 04/15/19 19:00 Docusate Sodium (Colace) 100 mg BID 04/15/19 21:00 04/17/19 20:59 100 MG Doxycycline Hyclate (Vibra-Tab) 100 mg BID 04/16/19 12:00 04/18/19 08:31 100 MG Enoxaparin Sodium (Lovenox 40mg Syringe) 40 mg Q24H 04/17/19 12:00 04/17/19 11:50 40 MG Enoxaparin Sodium (Lovenox Per Pharmacy Prophylaxis Dosing) 1 each PRN DAILY PRN 04/17/19 10:45 Famotidine (Pepcid) 20 mg BID 04/16/19 09:00 04/18/19 08:28 20 MG Furosemide (Lasix) 40 mg BID94 04/16/19 09:00 04/18/19 08:31 40 MG Hydrochlorothiazide (Hydrodiuril) 50 mg DAILY 04/16/19 09:00 04/18/19 08:27 50 MG Hydroxyzine Pamoate (Vistaril) 25 mg PRN TID PRN 04/16/19 13:25 Hydroxyzine HCl (Atarax) 25 mg PRN TID PRN 04/15/19 22:45 04/16/19 13:25 DC Lactobacillus Rhamnosus (Culturelle) 1 cap TID 04/16/19 09:00 04/18/19 08:28 1 CAP Losartan Potassium (Cozaar) 100 mg DAILY 04/16/19 09:00 04/18/19 08:30 100 MG Magnesium Hydroxide (Milk Of Magnesia) 2,400 mg PRN Q12HR PRN 04/15/19 19:00 Meloxicam (Mobic) 7.5 mg BID 04/16/19 09:00 04/18/19 08:30 7.5 MG Metoprolol Tartrate (Lopressor) 75 mg BID 04/16/19 09:00 04/18/19 08:29 75 MG Morphine Sulfate (Morphine Sulfate) 2 mg PRN Q2HR PRN 04/15/19 19:00 Non-Formulary Medication (Sildenafil Citrate (Viagra)) 1 tab PRN DAILY 04/15/19 22:45 UNV Ondansetron HCl (Zofran) 4 mg PRN Q6HRS PRN 04/15/19 19:00 Oxycodone HCl (Roxicodone) 5 mg PRN Q3HRS PRN 04/15/19 19:00 04/17/19 06:44 5 MG Potassium Chloride (Klor-Con) 20 meq DAILYWBKFT 04/16/19 08:00 04/18/19 08:30 20 MEQ Prochlorperazine Edisylate (Compazine) 10 mg PRN Q6HRS PRN 04/15/19 19:00 Risperidone (RisperDAL) 4 mg QHS 04/15/19 23:30 04/17/19 20:57 4 MG Sertraline HCl (Zoloft) 150 mg DAILY 04/16/19 09:00 04/18/19 08:29 150 MG Tamsulosin HCl (Flomax) 0.4 mg QHS 04/16/19 21:00 04/17/19 20:58 0.4 MG Trazodone HCl (Desyrel) 150 mg QHS 04/15/19 23:30 04/17/19 20:58 150 MG Trihexyphenidyl HCl (Artane) 10 mg DAILYWLUN 04/16/19 12:00 04/17/19 11:50 10 MG Vitamin B Complex (Cricket B) 1 tab DAILY 04/16/19 09:00 04/18/19 08:28 1 TAB Vitamin D (Vitamin D3) 2,000 unit DAILY 04/16/19 09:00 04/18/19 08:28 2,000 UNIT Objective: Assessment: Recent pneumonia at [facility] improving Chronic venous stasis Lt chronic ulcer ? unknown duration with underlying pad Leucocytosis and lactic acidosis at osh resolved Chr diastolic heart failure h/o LLE HW in place for more than 25 yrs PAD Plan: Plan of Care Cont cefepime and doxycycline for now will deescalate soon on antidepressants f/u MRI LLE Vascular planning for debridement Cont local wound care Elevate LLE HARSHIL JAMESON MD April 18, 2019 08:44
[2019-04-18 10:48] LABS: CALCIUM 9.4 mg/dL (8.5-10.1); CREATININE 1.2 mg/dL (0.7-1.3); GFR 59.9
[2019-04-18 11:00] VITALS: BP 143/80
--- NOTE | 2019-04-18 11:06 | NUR ---
[facility] following for discharge planning. Discussed with RN, pt[facility] met with pt to determine his [facility] clinical social work aide, pt is not sure who it is. [facility] contacted [facility] (ph: [phone]) to speak with a clinical social work aide, left voicemail requesting call back. RN advised pt needing an MRI, and probable debridement. [facility] will continue to follow.
--- NOTE | 2019-04-18 11:41 | PDOC ---
PROGRESS NOTES Subjective Subjective "Ok. So I try to not schedule things on '. Just kidding! So what are we doing tomorrow? I know you've told me already a couple of times." Objective Objective Vascular Surgery Follow Up: General: Patient seen and examined with hospitalist also at bedside. Patient in no distress. VSS, afebrile. LLE: Edematous from knee downward involving foot. Unable to palpate left dorsalis pedal or post tibial pulses. Left leg with erythema extending from foot to about 8cm below the knee that does not seem to have improved from boarders drawn upon admission. Left medial lower leg ulcer that penetrates to bone, minimal pustular drainage, some serous drainage. clean borders. Right groin: Clean. Palpable right femoral pulse. ARTERIAL STUDY LOWER EXT BI On the right, there are monophasic waveforms of the posterior tibial and anterior tibial arteries, otherwise mostly biphasic and triphasic waveforms present. On the left, there are mostly monophasic waveforms beyond the common femoral artery level. There is prominent hyperechoic calcified plaque diffusely of the lower extremity arteries bilaterally. There are apparently more focal stenoses such as of the common femoral arteries bilaterally, also probably near the level of the mid left superficial artery as there are diffuse decreased velocities more distally. There is occlusion of the distal left posterior tibial artery. There are some collateral vessels bilaterally. Note is made of nonspecific left groin lymph nodes with largest about 2.8 x 1.6 x 0.8 cm. Velocities in cm/sec: RIGHT Common femoral artery 177 Profunda femoris artery 116 Proximal SFA 86 Mid SFA 106 Distal SFA 93 Popliteal artery 42 Posterior tibial artery 19 proximally and 38 distally Peroneal artery 57 Anterior tibial artery 28 Dorsalis pedis artery 48 LEFT: Common femoral artery 154 Profunda femoris artery 132 Proximal SFA 114 Mid SFA 158 Distal SFA 35 Popliteal artery 20 Posterior tibial artery 25 proximally, distally occluded Peroneal artery 63 Anterior tibial artery 36 Dorsalis pedis artery 54 Impression: 1. There is diffuse prominent calcified plaque bilaterally. Left distal posterior tibial artery is occluded. There are stenoses most notable bilateral common femoral arteries and mid left superficial femoral artery. Assessment/Plan: 1. Nonhealing left lower leg wound with probable LLE PAD. Arterial US reviewed with Dr. Brady. Recommends arteriogram tomorrow to further evaluate arterial circulation based upon arterial US indicating probable PAD . Will schedule with IR. Patient made NPO at midnight. I spoke with RN regarding plan for patient and need to repeat entire discussion about US result, arteriogram tomorrow with explanation of procedure including risks, NPO after midnight, etc. Unsure of patient's level of understa nding and competence for signing consent. RN stated she will contact the patient's brother. Pt will still require wound debridement of LLE at some point pending results of arteriogram tomorrow. 2. Will add daily antiplatelet therapy with ASA. Patient has already had statin therapy initiated for probable vascular disease. 3. Will obtain new BMP to recheck renal function prior to contrast dye. 4. Will obtain Hba1c as glucose levels while hospitalized are elevated. Vital Signs Date Time Temp Pulse Resp B/P (MAP) Pulse Ox O2 Delivery O2 Flow Rate FiO2 04/18/19 11:09 Room Air 04/18/19 08:30 87 169/81 04/18/19 07:07 90 04/18/19 07:00 98.3 20 98.3 04/17/19 17:23 2.0 Intake and Output 04/18/19 07:00 Intake Total 730 ml Balance 730 ml Intake Oral 730 ml # Voids 4 Comment Review of Relevant I have reviewed the following items dragan (where applicable) has been applied. Labs Laboratory Tests Test 04/18/19 10:05 Sodium Level 144 mmol/L (136-145) Potassium Level 4.0 mmol/L (3.5-5.1) Chloride Level 105 mmol/L (98-107) Carbon Dioxide Level 31 mmol/L (21-32) Anion Gap 8 (6-14) Blood Urea Nitrogen 24 mg/dL (8-26) Creatinine 1.2 mg/dL (0.7-1.3) Estimated GFR (Cockcroft-Gault) 59.9 Glucose Level 144 mg/dL (70-99) Calcium Level 9.4 mg/dL (8.5-10.1) Laboratory Tests Test 04/18/19 10:05 Sodium Level 144 mmol/L (136-145) Potassium Level 4.0 mmol/L (3.5-5.1) Chloride Level 105 mmol/L (98-107) Carbon Dioxide Level 31 mmol/L (21-32) Anion Gap 8 (6-14) Blood Urea Nitrogen 24 mg/dL (8-26) Creatinine 1.2 mg/dL (0.7-1.3) Estimated GFR (Cockcroft-Gault) 59.9 Glucose Level 144 mg/dL (70-99) Calcium Level 9.4 mg/dL (8.5-10.1) Microbiology 04/15/19 Blood Culture - Preliminary, Resulted NO GROWTH AFTER 2 DAYS Medications Current Medications Ondansetron HCl (Zofran) 4 mg PRN Q6HRS PRN IV NAUSEA/VOMITING, 1st CHOICE; Start 04/15/19 at 19:00 Prochlorperazine Edisylate (Compazine) 10 mg PRN Q6HRS PRN IV NAUSEA/VOMITING, 2nd CHOICE; Start 04/15/19 at 19:00 Calcium Carbonate/ Glycine (Tums) 500 mg PRN Q3HRS PRN PO UPSET STOMACH; Start 04/15/19 at 19:00 Oxycodone HCl (Roxicodone) 5 mg PRN Q3HRS PRN PO BREAKTHROUGH PAIN Last administered on 04/17/19at 06:44; Start 04/15/19 at 19:00 Morphine Sulfate (Morphine Sulfate) 2 mg PRN Q2HR PRN IV PAIN; Start 04/15/19 at 19:00 Acetaminophen (Tylenol) 650 mg PRN Q6HRS PRN PO Headaches, Temp > 101.5F; Start 04/15/19 at 19:00 Docusate Sodium (Colace) 100 mg BID PO Last administered on 04/17/19at 20:59; Start 04/15/19 at 21:00 Magnesium Hydroxide (Milk Of Magnesia) 2,400 mg PRN Q12HR PRN PO CONSTIPATION; Start 04/15/19 at 19:00 Bisacodyl (Dulcolax Supp) 10 mg PRN DAILY PRN NC CONSTIPATION; Start 04/15/19 at 19:00 Albuterol Sulfate (Ventolin Neb Soln) 2.5 mg PRN Q4HRS PRN NEB SHORTNESS OF BREATH Last administered on 04/15/19at 21:24; Start 04/15/19 at 19:00 Clonidine HCl (Catapres) 0.1 mg PRN Q1HR PRN PO HYPERTENSION; Start 04/15/19 at 19:00 Amlodipine Besylate (Norvasc) 10 mg DAILY PO Last administered on 04/18/19 08:30; Start 04/16/19 at 09:00 Atorvastatin Calcium (Lipitor) 40 mg QHS PO Last administered on 04/17/19 20:58; Start 04/16/19 at 21:00 Vitamin D (Vitamin D3) 2,000 unit DAILY PO Last administered on 04/18/19 08:28; Start 04/16/19 at 09:00 Furosemide (Lasix) 40 mg BID94 PO Last administered on 04/18/19 08:31; Start 04/16/19 at 09:00 Hydroxyzine HCl (Atarax) 25 mg PRN TID PRN PO ITCHING; Start 04/15/19 at 22:45; Stop 04/16/19 at 13:25; Status DC Metoprolol Tartrate (Lopressor) 75 mg BID PO Last administered on 04/18/19 08:29; Start 04/16/19 at 09:00 Tamsulosin HCl (Flomax) 0.4 mg QHS PO Last administered on 04/17/19 20:58; Start 04/16/19 at 21:00 Benztropine Mesylate (Cogentin) 2 mg QHS PO Last administered on 04/17/19 20:57; Start 04/15/19 at 23:30 Benztropine Mesylate (Cogentin) 4 mg DAILY08 PO Last administered on 04/18/19 08:28; Start 04/16/19 at 08:00 Artificial Tears (Artificial Tears) 1 drop PRN QID PRN OU DRY EYE; Start 04/15/19 at 23:30 Cephalexin HCl (Keflex) 500 mg TID PO ; Start 04/16/19 at 23:45; Stop 04/16/19 at 23:45; Status DC Hydrochlorothiazide (Hydrodiuril) 50 mg DAILY PO Last administered on 04/18/19 08:27; Start 04/16/19 at 09:00 Lactobacillus Rhamnosus (Culturelle) 1 cap TID PO Last administered on 04/18/19 08:28; Start 04/16/19 at 09:00 Losartan Potassium (Cozaar) 100 mg DAILY PO Last administered on 04/18/19 08:30; Start 04/16/19 at 09:00 Meloxicam (Mobic) 7.5 mg BID PO Last administered on 04/18/19 08:30; Start 04/16/19 at 09:00 Potassium Chloride (Klor-Con) 20 meq DAILYWBKFT PO Last administered on 04/18/19 08:30; Start 04/16/19 at 08:00 Famotidine (Pepcid) 20 mg BID PO Last administered on 04/18/19 08:28; Start 04/16/19 at 09:00 Risperidone (RisperDAL) 4 mg QHS PO Last administered on 04/17/19 20:57; Start 04/15/19 at 23:30 Sertraline HCl (Zoloft) 150 mg DAILY PO Last administered on 04/18/19 08:29; Start 04/16/19 at 09:00 Non-Formulary Medication (Sildenafil Citrate (Viagra)) 1 tab PRN DAILY PO ; Start 04/15/19 at 22:45; Status UNV Trazodone HCl (Desyrel) 150 mg QHS PO Last administered on 04/17/19 20:58; Start 04/15/19 at 23:30 Trihexyphenidyl HCl (Artane) 5 mg DAILY08 PO Last administered on 04/18/19 08:28; Start 04/16/19 at 08:00 Trihexyphenidyl HCl (Artane) 10 mg DAILYWLUN PO Last administered on 04/17/19 11:50; Start 04/16/19 at 12:00 Vitamin B Complex (Cricket B) 1 tab DAILY PO Last administered on 04/18/19 08:28; Start 04/16/19 at 09:00 Albuterol/ Ipratropium (Duoneb) 3 ml RTQID NEB Last administered on 04/18/19 11:07; Start 04/16/19 at 12:00 Budesonide (Pulmicort) 0.5 mg RTBID NEB Last administered on 04/18/19 07:07; Start 04/16/19 at 09:30 Cefepime HCl (Maxipime) 2 gm Q12HR IVP Last administered on 04/18/19 08:31; Start 04/16/19 at 12:00 Doxycycline Hyclate (Vibra-Tab) 100 mg BID PO Last administered on 5/29/19at 08:31; Start 04/16/19 at 12:00 Hydroxyzine Pamoate (Vistaril) 25 mg PRN TID PRN PO ITCHING; Start 04/16/19 at 13:25 Enoxaparin Sodium (Lovenox Per Pharmacy Prophylaxis Dosing) 1 each PRN DAILY PRN MC SEE COMMENTS; Start 04/17/19 at 10:45 Enoxaparin Sodium (Lovenox 40mg Syringe) 40 mg Q24H SQ Last administered on 04/17/19at 11:50; Start 04/17/19 at 12:00; Status Future Hold Active Scripts Active Reported Flomax (Tamsulosin Hcl) 0.4 Mg Cap.er.24h 1 Cap PO QHS Losartan Potassium 100 Mg Tablet 100 Mg PO DAILY Vitamin D3 (Cholecalciferol (Vitamin D3)) 1,000 Unit Tablet 2 Tab PO DAILY Aspirin 325 Mg Tablet 1 Tab PO DAILY Amlodipine Besylate 10 Mg Tablet 10 Mg PO DAILY Trazodone Hcl 50 Mg Tablet 3 Tab PO QHS Cephalexin 500 Mg Capsule 2 Cap PO TID Tylenol (Acetaminophen) 325 Mg Tablet 1-2 Tab PO QID Gnp B-Complex Tablet (Vit B Comp & C/Calcium Carb) 1 Each Tablet 1 Each PO DAILY Trihexyphenidyl Hcl 5 Mg Tablet 2 Tab PO DAILYWLUN Trihexyphenidyl Hcl 5 Mg Tablet 1 Tab PO DAILY08 Viagra (Sildenafil Citrate) 100 Mg Tablet 1 Tab PO PRN DAILY Zoloft (Sertraline Hcl) 100 Mg Tablet 1.5 Tab PO DAILY Xarelto (Rivaroxaban) 20 Mg Tablet 20 Mg PO DAILY Risperidone 4 Mg Tablet 1 Tab PO QHS Ranitidine Hcl 150 Mg Tablet 1 Tab PO BID Potassium Chloride 20 Meq Tablet.er 20 Meq PO DAILY Metoprolol Tartrate 50 Mg Tablet 1.5 Tab PO BID Meloxicam 7.5 Mg Tablet 1 Tab PO BID Acidophilus (Lactobacillus Acidophilus) 1 Each Capsule 1 Each PO TID Hydroxyzine Hcl 25 Mg Tablet 1 Tab PO PRN TID PRN Hydrochlorothiazide Tablet (Hydrochlorothiazide) 50 Mg Tablet 50 Mg PO DAILY Furosemide 40 Mg Tablet 40 Mg PO BID Docusate Sodium 100 Mg Capsule 1 Cap PO BID Refresh Optive Eye Drops (Carboxymethylcellulos/Glycerin) 15 Ml Drops 1 Drop EACHEYE PRN QID PRN Benztropine Mesylate 2 Mg Tablet 1 Tab PO QHS Benztropine Mesylate 2 Mg Tablet 2 Tab PO DAILY08 Atorvastatin Calcium 40 Mg Tablet 1 Tab PO QHS Proair Hfa Inhaler (Albuterol Sulfate) 8.5 Gm Hfa.aer.ad 2 Puff INH PRN Q6HRS PRN Vitals/I & O Vital Sign - Last 24 Hours 04/17/19 04/17/19 04/17/19 04/17/19 15:00 17:23 19:25 20:00 Temp 98.4 98.4 98.4 98.4 Pulse 88 88 Resp 20 18 B/P (MAP) 147/74 (98) 158/72 (100) Pulse Ox 91 94 O2 Delivery Room Air Nasal Cannula Room Air Room Air O2 Flow Rate 2.0 04/17/19 04/17/19 04/17/19 04/18/19 20:59 20:59 23:34 03:47 Temp 98.5 98.6 98.5 98.6 Pulse 88 70 76 Resp 18 18 B/P (MAP) 147/74 127/65 (85) 127/70 (89) Pulse Ox 91 94 O2 Delivery Room Air Room Air Room Air 04/18/19 04/18/19 04/18/19 04/18/19 07:00 07:07 08:29 08:30 Temp 98.3 98.3 Pulse 87 87 87 Resp 20 B/P (MAP) 169/81 (110) 169/81 169/81 Pulse Ox 90 90 O2 Delivery Room Air Room Air 04/18/19 04/18/19 08:30 11:09 Pulse 87 B/P (MAP) 169/81 O2 Delivery Room Air Intake and Output 04/17/19 04/17/19 04/18/19 15:00 23:00 07:00 Intake Total 730 ml Balance 730 ml LEONEL MILLAN APRN April 18, 2019 11:41
--- NOTE | 2019-04-18 13:07 | PDOC ---
PROGRESS NOTES Chief Complaint Chief Complaint leg leg cellulitis with wound, swelling and pain, has history of hardware to left leg, has been on disability 30 years for leg injury hx venous stasis ulcer, has followed with wound clinic obesity, BMI 38 COPD, treated for pneumonia at [facility] yesterday, afib, on xarelto, on hold, cognitive decline, lives in assisted living, schizoaffective hx with depression, on meds History of Present Illness History of Present Illness Patient with no acute events reported overnight, patient denies fever or chills, plan of care has been discussed alongside vascular implementation consultant, plans to do an angiogram in the am has been discussed at length. all concerns addressed to the best of my abilities. Vitals Vitals Vital Signs Date Time Temp Pulse Resp B/P (MAP) Pulse Ox O2 Delivery O2 Flow Rate FiO2 04/18/19 11:09 Room Air 04/18/19 08:30 87 169/81 04/18/19 07:07 90 04/18/19 07:00 98.3 20 98.3 04/17/19 17:23 2.0 Physical Exam Physical Exam GENERAL: Alert, oriented, somewhat confused male sitting in chair, in no acute distress, cooperative, pleasant. HEENT: Normocephalic, atraumatic, anicteric. NECK: Supple. No JVD. LUNGS: Clear bilaterally, no wheezing. HEART: S1, S2, no gallops or murmurs. ABDOMEN: Soft, obese. Bowel sounds present, nontender, nondistended. GENITOURINARY: Olivarez in place. CENTRAL NERVOUS SYSTEM: Alert, awake, somewhat confused, does have some trouble with memory. Able to move all 4 extremities. DERMATOLOGIC: Warm, dry. No generalized rash. EXTREMITIES: Left lower extremity swelling present. Scar over the lateral aspect around the ankle well healed. Venous stasis ulcer present on the medial aspect. No purulent drainage. Does not have any sinus tract, does not appear to be communicating to the lateral HW in place PSYCHIATRIC: Cooperative, appropriate mood and affect. General: Alert, Oriented X3, Cooperative Heart: Other (Normal radial, femoral pulses. Bilateral pedal edema extending up midshin bilaterally. Cannot appreciate left pedal pulses to palpation. Right DP palpable. ) Abdomen: No tenderness, Other (Obese) Extremities: No cyanosis, Other (tr edema, left, ) Skin: Other (Left leg with erythema extending from foot to about 8cm below the knee, follows borders drawn upon admission. Left medial lower leg ulcer that penetrates to bone, minimal pustular drainage, some serous drainage. clean borders. Minimal pain to this. His left plantar foot has large callous along m etatarsal heads, significant pain to this with palpation, not fluctuant. ) Labs LABS Laboratory Tests Test 04/18/19 10:05 Sodium Level 144 mmol/L (136-145) Potassium Level 4.0 mmol/L (3.5-5.1) Chloride Level 105 mmol/L (98-107) Carbon Dioxide Level 31 mmol/L (21-32) Anion Gap 8 (6-14) Blood Urea Nitrogen 24 mg/dL (8-26) Creatinine 1.2 mg/dL (0.7-1.3) Estimated GFR (Cockcroft-Gault) 59.9 Glucose Level 144 mg/dL (70-99) Calcium Level 9.4 mg/dL (8.5-10.1) Comment Review of Relevant I have reviewed the following items dragan (where applicable) has been applied. Labs Laboratory Tests Test 04/18/19 10:05 Sodium Level 144 mmol/L (136-145) Potassium Level 4.0 mmol/L (3.5-5.1) Chloride Level 105 mmol/L (98-107) Carbon Dioxide Level 31 mmol/L (21-32) Anion Gap 8 (6-14) Blood Urea Nitrogen 24 mg/dL (8-26) Creatinine 1.2 mg/dL (0.7-1.3) Estimated GFR (Cockcroft-Gault) 59.9 Glucose Level 144 mg/dL (70-99) Calcium Level 9.4 mg/dL (8.5-10.1) Laboratory Tests Test 04/18/19 10:05 Sodium Level 144 mmol/L (136-145) Potassium Level 4.0 mmol/L (3.5-5.1) Chloride Level 105 mmol/L (98-107) Carbon Dioxide Level 31 mmol/L (21-32) Anion Gap 8 (6-14) Blood Urea Nitrogen 24 mg/dL (8-26) Creatinine 1.2 mg/dL (0.7-1.3) Estimated GFR (Cockcroft-Gault) 59.9 Glucose Level 144 mg/dL (70-99) Calcium Level 9.4 mg/dL (8.5-10.1) Microbiology 04/15/19 Blood Culture - Preliminary, Resulted NO GROWTH AFTER 2 DAYS Medications Current Medications Ondansetron HCl (Zofran) 4 mg PRN Q6HRS PRN IV NAUSEA/VOMITING, 1st CHOICE; Start 04/15/19 at 19:00 Prochlorperazine Edisylate (Compazine) 10 mg PRN Q6HRS PRN IV NAUSEA/VOMITING, 2nd CHOICE; Start 04/15/19 at 19:00 Calcium Carbonate/ Glycine (Tums) 500 mg PRN Q3HRS PRN PO UPSET STOMACH; Start 04/15/19 at 19:00 Oxycodone HCl (Roxicodone) 5 mg PRN Q3HRS PRN PO BREAKTHROUGH PAIN Last administered on 04/17/19at 06:44; Start 04/15/19 at 19:00 Morphine Sulfate (Morphine Sulfate) 2 mg PRN Q2HR PRN IV PAIN; Start 04/15/19 at 19:00 Acetaminophen (Tylenol) 650 mg PRN Q6HRS PRN PO Headaches, Temp > 101.5F; Start 04/15/19 at 19:00 Docusate Sodium (Colace) 100 mg BID PO Last administered on 04/17/19at 20:59; Start 04/15/19 at 21:00 Magnesium Hydroxide (Milk Of Magnesia) 2,400 mg PRN Q12HR PRN PO CONSTIPATION; Start 04/15/19 at 19:00 Bisacodyl (Dulcolax Supp) 10 mg PRN DAILY PRN SC CONSTIPATION; Start 04/15/19 at 19:00 Albuterol Sulfate (Ventolin Neb Soln) 2.5 mg PRN Q4HRS PRN NEB SHORTNESS OF BREATH Last administered on 04/15/19at 21:24; Start 04/15/19 at 19:00 Clonidine HCl (Catapres) 0.1 mg PRN Q1HR PRN PO HYPERTENSION; Start 04/15/19 at 19:00 Amlodipine Besylate (Norvasc) 10 mg DAILY PO Last administered on 04/18/19at 08:30; Start 04/16/19 at 09:00 Atorvastatin Calcium (Lipitor) 40 mg QHS PO Last administered on 04/17/19at 20:58; Start 04/16/19 at 21:00 Vitamin D (Vitamin D3) 2,000 unit DAILY PO Last administered on 04/18/19 08:28; Start 04/16/19 at 09:00 Furosemide (Lasix) 40 mg BID94 PO Last administered on 04/18/19 08:31; Start 04/16/19 at 09:00 Hydroxyzine HCl (Atarax) 25 mg PRN TID PRN PO ITCHING; Start 04/15/19 at 22:45; Stop 04/16/19 at 13:25; Status DC Metoprolol Tartrate (Lopressor) 75 mg BID PO Last administered on 04/18/19 08:29; Start 04/16/19 at 09:00 Tamsulosin HCl (Flomax) 0.4 mg QHS PO Last administered on 04/17/19 20:58; Start 04/16/19 at 21:00 Benztropine Mesylate (Cogentin) 2 mg QHS PO Last administered on 04/17/19 20:57; Start 04/15/19 at 23:30 Benztropine Mesylate (Cogentin) 4 mg DAILY08 PO Last administered on 04/18/19 08:28; Start 04/16/19 at 08:00 Artificial Tears (Artificial Tears) 1 drop PRN QID PRN OU DRY EYE; Start 04/15/19 at 23:30 Cephalexin HCl (Keflex) 500 mg TID PO ; Start 04/16/19 at 23:45; Stop 04/16/19 at 23:45; Status DC Hydrochlorothiazide (Hydrodiuril) 50 mg DAILY PO Last administered on 04/18/19 08:27; Start 04/16/19 at 09:00 Lactobacillus Rhamnosus (Culturelle) 1 cap TID PO Last administered on 04/18/19 08:28; Start 04/16/19 at 09:00 Losartan Potassium (Cozaar) 100 mg DAILY PO Last administered on 04/18/19 08:30; Start 04/16/19 at 09:00 Meloxicam (Mobic) 7.5 mg BID PO Last administered on 04/18/19 08:30; Start 04/16/19 at 09:00 Potassium Chloride (Klor-Con) 20 meq DAILYWBKFT PO Last administered on 04/18/19 08:30; Start 04/16/19 at 08:00 Famotidine (Pepcid) 20 mg BID PO Last administered on 04/18/19 08:28; Start 04/16/19 at 09:00 Risperidone (RisperDAL) 4 mg QHS PO Last administered on 04/17/19 20:57; Start 04/15/19 at 23:30 Sertraline HCl (Zoloft) 150 mg DAILY PO Last administered on 04/18/19 08:29; Start 04/16/19 at 09:00 Non-Formulary Medication (Sildenafil Citrate (Viagra)) 1 tab PRN DAILY PO ; Start 04/15/19 at 22:45; Status UNV Trazodone HCl (Desyrel) 150 mg QHS PO Last administered on 04/17/19 20:58; Start 04/15/19 at 23:30 Trihexyphenidyl HCl (Artane) 5 mg DAILY08 PO Last administered on 04/18/19 08:28; Start 04/16/19 at 08:00 Trihexyphenidyl HCl (Artane) 10 mg DAILYWLUN PO Last administered on 04/17/19 11:50; Start 04/16/19 at 12:00 Vitamin B Complex (Cricket B) 1 tab DAILY PO Last administered on 04/18/19 08:28; Start 04/16/19 at 09:00 Albuterol/ Ipratropium (Duoneb) 3 ml RTQID NEB Last administered on 04/18/19 11:07; Start 04/16/19 at 12:00 Budesonide (Pulmicort) 0.5 mg RTBID NEB Last administered on 04/18/19 07:07; Start 04/16/19 at 09:30 Cefepime HCl (Maxipime) 2 gm Q12HR IVP Last administered on 04/18/19 08:31; Start 04/16/19 at 12:00 Doxycycline Hyclate (Vibra-Tab) 100 mg BID PO Last administered on 04/18/19 08:31; Start 04/16/19 at 12:00 Hydroxyzine Pamoate (Vistaril) 25 mg PRN TID PRN PO ITCHING; Start 04/16/19 at 13:25 Enoxaparin Sodium (Lovenox Per Pharmacy Prophylaxis Dosing) 1 each PRN DAILY PRN MC SEE COMMENTS; Start 04/17/19 at 10:45 Enoxaparin Sodium (Lovenox 40mg Syringe) 40 mg Q24H SQ Last administered on 04/17/19at 11:50; Start 04/17/19 at 12:00; Status Future Hold Aspirin (Ecotrin) 81 mg DAILYWBKFT PO ; Start 04/18/19 at 11:45 Active Scripts Active Reported Flomax (Tamsulosin Hcl) 0.4 Mg Cap.er.24h 1 Cap PO QHS Losartan Potassium 100 Mg Tablet 100 Mg PO DAILY Vitamin D3 (Cholecalciferol (Vitamin D3)) 1,000 Unit Tablet 2 Tab PO DAILY Aspirin 325 Mg Tablet 1 Tab PO DAILY Amlodipine Besylate 10 Mg Tablet 10 Mg PO DAILY Trazodone Hcl 50 Mg Tablet 3 Tab PO QHS Cephalexin 500 Mg Capsule 2 Cap PO TID Tylenol (Acetaminophen) 325 Mg Tablet 1-2 Tab PO QID Gnp B-Complex Tablet (Vit B Comp & C/Calcium Carb) 1 Each Tablet 1 Each PO DAILY Trihexyphenidyl Hcl 5 Mg Tablet 2 Tab PO DAILYWLUN Trihexyphenidyl Hcl 5 Mg Tablet 1 Tab PO DAILY08 Viagra (Sildenafil Citrate) 100 Mg Tablet 1 Tab PO PRN DAILY Zoloft (Sertraline Hcl) 100 Mg Tablet 1.5 Tab PO DAILY Xarelto (Rivaroxaban) 20 Mg Tablet 20 Mg PO DAILY Risperidone 4 Mg Tablet 1 Tab PO QHS Ranitidine Hcl 150 Mg Tablet 1 Tab PO BID Potassium Chloride 20 Meq Tablet.er 20 Meq PO DAILY Metoprolol Tartrate 50 Mg Tablet 1.5 Tab PO BID Meloxicam 7.5 Mg Tablet 1 Tab PO BID Acidophilus (Lactobacillus Acidophilus) 1 Each Capsule 1 Each PO TID Hydroxyzine Hcl 25 Mg Tablet 1 Tab PO PRN TID PRN Hydrochlorothiazide Tablet (Hydrochlorothiazide) 50 Mg Tablet 50 Mg PO DAILY Furosemide 40 Mg Tablet 40 Mg PO BID Docusate Sodium 100 Mg Capsule 1 Cap PO BID Refresh Optive Eye Drops (Carboxymethylcellulos/Glycerin) 15 Ml Drops 1 Drop EACHEYE PRN QID PRN Benztropine Mesylate 2 Mg Tablet 1 Tab PO QHS Benztropine Mesylate 2 Mg Tablet 2 Tab PO DAILY08 Atorvastatin Calcium 40 Mg Tablet 1 Tab PO QHS Proair Hfa Inhaler (Albuterol Sulfate) 8.5 Gm Hfa.aer.ad 2 Puff INH PRN Q6HRS PRN Vitals/I & O Vital Sign - Last 24 Hours 04/17/19 04/17/19 04/17/19 04/17/19 15:00 17:23 19:25 20:00 Temp 98.4 98.4 98.4 98.4 Pulse 88 88 Resp 20 18 B/P (MAP) 147/74 (98) 158/72 (100) Pulse Ox 91 94 O2 Delivery Room Air Nasal Cannula Room Air Room Air O2 Flow Rate 2.0 04/17/19 04/17/19 04/17/19 04/18/19 20:59 20:59 23:34 03:47 Temp 98.5 98.6 98.5 98.6 Pulse 88 70 76 Resp 18 18 B/P (MAP) 147/74 127/65 (85) 127/70 (89) Pulse Ox 91 94 O2 Delivery Room Air Room Air Room Air 04/18/19 04/18/19 04/18/19 04/18/19 07:00 07:07 08:00 08:29 Temp 98.3 98.3 Pulse 87 87 Resp 20 B/P (MAP) 169/81 (110) 169/81 Pulse Ox 90 90 O2 Delivery Room Air Room Air Room Air 04/18/19 04/18/19 04/18/19 08:30 08:30 11:09 Pulse 87 87 B/P (MAP) 169/81 169/81 O2 Delivery Room Air Intake and Output 04/17/19 04/17/19 04/18/19 14:59 22:59 06:59 Intake Total 730 ml Balance 730 ml RUPA ARAGON MD April 18, 2019 13:07
[2019-04-18] MEDS: ASPIRIN ENTERIC COATED 81 MG TABLET.DR. PO SCH (13:20)
[2019-04-18] MEDS: ENOXAPARIN 40 MG/0.4 ML SYRINGE. SQ SCH (13:20)
--- NOTE | 2019-04-18 13:29 | NUR ---
Wound Care: Consult to eval and treat for cellulitis and wound to LLE. Wound cleansed, picture and measurements present in chart. covered with aquacel AG and foam dressing. No other open areas noted on head to toe inspection. Pt able to self mobilize. Educated on pressure ulcer prevention. Communicated plan of care with Charles STEWART. Follow p 6\5
--- NOTE | 2019-04-18 13:45 | NUR ---
WICHO following. WICHO spoke with [facility] social media sr strategy manager. Pt is not eligible for [facility] placement as is not service connected so will need to use his coventry insurance to pay for SNU. WICHO notified [facility].
[2019-04-18 15:00] VITALS: BP 116/62
[2019-04-18] MEDS: oxyCODONE IR 5 MG TABLET PO PRN ×2 (16:32→23:07)
[2019-04-18 19:00] VITALS: BP 141/57
[2019-04-18] MEDS: risperiDONE 1 MG TABLET. PO SCH (21:01)
[2019-04-18] MEDS: traZODone 50 MG TABLET. PO SCH (21:01)
[2019-04-18] MEDS: TAMSULOSIN 0.4 MG CAP.ER.24H. PO SCH (21:02)
[2019-04-18] MEDS: ATORVASTATIN CALCIUM 40 MG TABLET. PO SCH (21:03)
[2019-04-18 23:00] VITALS: BP 131/59
[2019-04-19 03:00] VITALS: BP 123/82
[2019-04-19 07:00] VITALS: BP 106/52
[2019-04-19] MEDS: BUDESONIDE 0.5 MG/2 ML NEBU. NEB SCH ×2 (07:12→18:08)
[2019-04-19] MEDS: IPRATRPIUM/ALBUTEROL 0.5/2.5MG 3 ML NEBU. NEB SCH ×4 (07:12→18:08)
[2019-04-19] MEDS: POTASSIUM CHLORIDE 20 MEQ TABLET.ER. PO SCH (08:00)
[2019-04-19] MEDS: ASPIRIN ENTERIC COATED 81 MG TABLET.DR. PO SCH (08:00)
[2019-04-19] MEDS: TRIHEXYPHENIDYL 2 MG TABLET. PO SCH ×2 (08:00→15:33)
[2019-04-19] MEDS: BENZTROPINE MESYLATE 1 MG TABLET. PO SCH ×2 (08:00→20:39)
[2019-04-19] MEDS: VITAMIN B COMPLEX TABLET. PO SCH (09:00)
[2019-04-19] MEDS: FAMOTIDINE 20 MG TABLET. PO SCH ×2 (09:00→20:40)
[2019-04-19] MEDS: amLODIPine BESYLATE 10 MG TABLET PO SCH (09:00)
[2019-04-19] MEDS: DOXYCYCLINE HYCLATE 100 MG TABLET PO SCH ×2 (09:00→20:41)
[2019-04-19] MEDS: SERTRALINE 50 MG TABLET. PO SCH (09:00)
[2019-04-19] MEDS: hydroCHLOROthiazide 25 MG TABLET PO SCH (09:00)
[2019-04-19] MEDS: DOCUSATE SODIUM 100 MG CAPSULE. PO SCH ×2 (09:00→20:41)
[2019-04-19] MEDS: LACTOBACILLUS RHAMNOSUS GG 1 CAPSULE. PO SCH ×3 (09:00→20:39)
[2019-04-19] MEDS: METOPROLOL TART IMMED RELEASE 25 MG TABLET. PO SCH ×2 (09:00→20:39)
[2019-04-19] MEDS: MELOXICAM 7.5 MG TABLET PO SCH ×2 (09:00→20:41)
[2019-04-19] MEDS: LOSARTAN POTASSIUM 50 MG TABLET. PO SCH (09:00)
[2019-04-19] MEDS: FUROSEMIDE 40 MG TABLET. PO SCH ×2 (09:00→15:33)
[2019-04-19] MEDS: CHOLECALCIFEROL (VITAMIN D3) 1,000 UNIT TABLET PO SCH (09:00)
[2019-04-19] MEDS: CEFEPIME HCL IV Push 2 GM VIAL. IVP SCH ×2 (09:38→21:00)
--- NOTE | 2019-04-19 09:47 | PDOC ---
Infectious Disease Note Subjective: Subjective pt without complaints denies any f//n/v/d sob and cough are improving awaiting surgery later today ROS: ROS Negative except for above. Vital Signs: Vital Signs Vital Signs Date Time Temp Pulse Resp B/P (MAP) Pulse Ox O2 Delivery O2 Flow Rate FiO2 04/19/19 07:13 93 Room Air 04/19/19 07:00 97.9 69 18 106/52 (70) 97.9 Physical Exam: PHYSICAL EXAM GENERAL: Alert, oriented, somewhat confused male sitting in chair, in no acute distress, cooperative, pleasant. HEENT: Normocephalic, atraumatic, anicteric. NECK: Supple. No JVD. LUNGS: Clear bilaterally, no wheezing. HEART: S1, S2, no gallops or murmurs. ABDOMEN: Soft, obese. Bowel sounds present, nontender, nondistended. GENITOURINARY: Olivarez in place. CENTRAL NERVOUS SYSTEM: Alert, awake, somewhat confused, does have some trouble with memory. Able to move all 4 extremities. DERMATOLOGIC: Warm, dry. No generalized rash. EXTREMITIES: Left lower extremity swelling present. Scar over the lateral aspect around the ankle well healed. Venous stasis ulcer present on the medial aspect. No purulent drainage. Does not have any sinus tract, does not appear to be communicating to the lateral HW in place PSYCHIATRIC: Cooperative, appropriate mood and affect. Medications: Inpatient Meds: Current Medications Medications (Trade) Dose Ordered Sig/[facility] Start Time Stop Time Status Last Admin Dose Admin Acetaminophen (Tylenol) 650 mg PRN Q6HRS PRN 04/15/19 19:00 Albuterol Sulfate (Ventolin Neb Soln) 2.5 mg PRN Q4HRS PRN 04/15/19 19:00 04/15/19 21:24 2.5 MG Albuterol/ Ipratropium (Duoneb) 3 ml RTQID 04/16/19 12:00 04/19/19 07:12 3 ML Amlodipine Besylate (Norvasc) 10 mg DAILY 04/16/19 09:00 04/18/19 08:30 10 MG Artificial Tears (Artificial Tears) 1 drop PRN QID PRN 04/15/19 23:30 Aspirin (Ecotrin) 81 mg DAILYWBKFT 04/18/19 11:45 04/18/19 13:20 81 MG Atorvastatin Calcium (Lipitor) 40 mg QHS 04/16/19 21:00 04/18/19 21:03 40 MG Benztropine Mesylate (Cogentin) 4 mg DAILY08 04/16/19 08:00 04/18/19 08:28 4 MG Bisacodyl (Dulcolax Supp) 10 mg PRN DAILY PRN 04/15/19 19:00 Budesonide (Pulmicort) 0.5 mg RTBID 04/16/19 09:30 04/19/19 07:12 0.5 MG Calcium Carbonate/ Glycine (Tums) 500 mg PRN Q3HRS PRN 04/15/19 19:00 Cefepime HCl (Maxipime) 2 gm Q12HR 04/16/19 12:00 04/18/19 21:00 2 GM Cephalexin HCl (Keflex) 500 mg TID 04/16/19 23:45 04/16/19 23:45 DC Clonidine HCl (Catapres) 0.1 mg PRN Q1HR PRN 04/15/19 19:00 Docusate Sodium (Colace) 100 mg BID 04/15/19 21:00 04/18/19 21:03 100 MG Doxycycline Hyclate (Vibra-Tab) 100 mg BID 04/16/19 12:00 04/18/19 21:02 100 MG Enoxaparin Sodium (Lovenox 40mg Syringe) 40 mg Q24H 04/17/19 12:00 Future Hold 04/18/19 13:20 40 MG Enoxaparin Sodium (Lovenox Per Pharmacy Prophylaxis Dosing) 1 each PRN DAILY PRN 04/17/19 10:45 Famotidine (Pepcid) 20 mg BID 04/16/19 09:00 04/18/19 21:02 20 MG Furosemide (Lasix) 40 mg BID94 04/16/19 09:00 04/18/19 16:32 40 MG Hydrochlorothiazide (Hydrodiuril) 50 mg DAILY 04/16/19 09:00 04/18/19 08:27 50 MG Hydroxyzine Pamoate (Vistaril) 25 mg PRN TID PRN 04/16/19 13:25 Hydroxyzine HCl (Atarax) 25 mg PRN TID PRN 04/15/19 22:45 04/16/19 13:25 DC Lactobacillus Rhamnosus (Culturelle) 1 cap TID 04/16/19 09:00 04/18/19 21:02 1 CAP Losartan Potassium (Cozaar) 100 mg DAILY 04/16/19 09:00 04/18/19 08:30 100 MG Magnesium Hydroxide (Milk Of Magnesia) 2,400 mg PRN Q12HR PRN 04/15/19 19:00 Meloxicam (Mobic) 7.5 mg BID 04/16/19 09:00 04/18/19 21:03 7.5 MG Metoprolol Tartrate (Lopressor) 75 mg BID 04/16/19 09:00 04/18/19 21:02 75 MG Morphine Sulfate (Morphine Sulfate) 2 mg PRN Q2HR PRN 04/15/19 19:00 Non-Formulary Medication (Sildenafil Citrate (Viagra)) 1 tab PRN DAILY 04/15/19 22:45 UNV Ondansetron HCl (Zofran) 4 mg PRN Q6HRS PRN 04/15/19 19:00 Oxycodone HCl (Roxicodone) 5 mg PRN Q3HRS PRN 04/15/19 19:00 04/18/19 23:07 5 MG Potassium Chloride (Klor-Con) 20 meq DAILYWBKFT 04/16/19 08:00 04/18/19 08:30 20 MEQ Prochlorperazine Edisylate (Compazine) 10 mg PRN Q6HRS PRN 04/15/19 19:00 Risperidone (RisperDAL) 4 mg QHS 04/15/19 23:30 04/18/19 21:01 4 MG Sertraline HCl (Zoloft) 150 mg DAILY 04/16/19 09:00 04/18/19 08:29 150 MG Tamsulosin HCl (Flomax) 0.4 mg QHS 04/16/19 21:00 04/18/19 21:02 0.4 MG Trazodone HCl (Desyrel) 150 mg QHS 04/15/19 23:30 04/18/19 21:01 150 MG Trihexyphenidyl HCl (Artane) 10 mg DAILYWLUN 04/16/19 12:00 04/18/19 13:20 10 MG Vitamin B Complex (Cricket B) 1 tab DAILY 04/16/19 09:00 04/18/19 08:28 1 TAB Vitamin D (Vitamin D3) 2,000 unit DAILY 04/16/19 09:00 04/18/19 08:28 2,000 UNIT Labs: Lab Laboratory Tests Test 04/18/19 10:05 Sodium Level 144 mmol/L (136-145) Potassium Level 4.0 mmol/L (3.5-5.1) Chloride Level 105 mmol/L (98-107) Carbon Dioxide Level 31 mmol/L (21-32) Anion Gap 8 (6-14) Blood Urea Nitrogen 24 mg/dL (8-26) Creatinine 1.2 mg/dL (0.7-1.3) Estimated GFR (Cockcroft-Gault) 59.9 Glucose Level 144 mg/dL (70-99) Calcium Level 9.4 mg/dL (8.5-10.1) Objective: Assessment: Recent pneumonia at [facility] improving Chronic venous stasis Lt chronic ulcer ? unknown duration with underlying pad Leucocytosis and lactic acidosis at osh resolved Chr diastolic heart failure h/o LLE HW in place for more than 25 yrs PAD Plan: Plan of Care Cont cefepime and doxycycline for now will deescalate soon Vascular planning for debridement later today Cont local wound care [facility] LLE HARSHIL JAMESON MD April 19, 2019 09:47
[2019-04-19] MEDS: oxyCODONE IR 5 MG TABLET PO PRN ×3 (09:48→20:40)
[2019-04-19 11:22] VITALS: BP 118/54
--- NOTE | 2019-04-19 11:29 | PDOC ---
Provider Note Provider Note Vascular Surgery Scheduled for arteriogram later today. We'll review the results when available. Additional recommendations to follow. Patient will eventually need surgical debridement of this lower leg wound movable of bony sequestrum YOBANI MEMBRENO MD April 19, 2019 11:29
[2019-04-19] MEDS ORDERED: GADOTERATE 7.5 MMOL/15ML VIAL. IVP ONE (12:00)
--- NOTE | 2019-04-19 12:32 | RAD ---
MR of the distal tibia and fibula with and without contrast HISTORY: Open ulcer just above the medial malleolus, redness and swelling. TECHNIQUE: Routine multiplanar sequences are obtained. FINDINGS: There is diffuse subcutaneous edema around the distal aspect of the lower leg. No evidence of organized fluid collection or drainable abscess. There is diffuse intramuscular atrophy. Mild intramuscular edema. There is metal artifact at the fibular shaft. There is some linear signal through the fibula may be a fixation tam, no radiographs are available for comparison. There is foci of artifact within the distal tibia compatible with surgical intervention. There is ossification and ankylosis at the distal tibiofibular joint compatible with prior surgery or trauma. There are degenerative changes at the tibiotalar joint. IMPRESSION: 1. Chronic postsurgical/posttraumatic changes of the distal tibia and fibula. 2. Diffuse soft tissue edema, no organized fluid collection. Electronically signed by: Rc Zimmerman MD (04/19/2019 12:29 PM) [id number]
--- NOTE | 2019-04-19 12:44 | NUR ---
SW following for discharge planning. Pt having an arteriogram today, possible debridement. [facility] deciding about whether to take pt or not. SW will continue to follow.
[2019-04-19 13:15] LABS: HEMOGLOBIN A1C 6.2 % (4.8-5.6)
--- NOTE | 2019-04-19 14:21 | PDOC ---
PROGRESS NOTES Chief Complaint Chief Complaint leg leg cellulitis with wound, swelling and pain, has history of hardware to left leg, has been on disability 30 years for leg injury hx venous stasis ulcer, has followed with wound clinic obesity, BMI 38 COPD, treated for pneumonia at [facility] yesterday, afib, on xarelto, on hold, cognitive decline, lives in assisted living, schizoaffective hx with depression, on meds PVD recommendations from hearing consultant greatly appreciated. Patient will have angiography today. History of Present Illness History of Present Illness Patient with no acute events reported overnight, patient denies fever or chills, plan of care has been discussed alongside vascular hearing consultant, plans to do an angiogram in the am has been discussed at length. all concerns addressed to the best of my abilities. Vitals Vitals Vital Signs Date Time Temp Pulse Resp B/P (MAP) Pulse Ox O2 Delivery O2 Flow Rate FiO2 04/19/19 11:22 97.8 67 18 118/54 (75) 91 Room Air 97.8 Physical Exam Physical Exam GENERAL: Alert, oriented, somewhat confused male sitting in chair, in no acute distress, cooperative, pleasant. HEENT: Normocephalic, atraumatic, anicteric. NECK: Supple. No JVD. LUNGS: Clear bilaterally, no wheezing. HEART: S1, S2, no gallops or murmurs. ABDOMEN: Soft, obese. Bowel sounds present, nontender, nondistended. GENITOURINARY: Olivarez in place. CENTRAL NERVOUS SYSTEM: Alert, awake, somewhat confused, does have some trouble with memory. Able to move all 4 extremities. DERMATOLOGIC: Warm, dry. No generalized rash. EXTREMITIES: Left lower extremity swelling present. Scar over the lateral aspect around the ankle well healed. Venous stasis ulcer present on the medial aspect. No purulent drainage. Does not have any sinus tract, does not appear to be communicating to the lateral HW in place PSYCHIATRIC: Cooperative, appropriate mood and affect. General: Alert, Oriented X3, Cooperative Heart: Other (Normal radial, femoral pulses. Bilateral pedal edema extending up midshin bilaterally. Cannot appreciate left pedal pulses to palpation. Right DP palpable. ) Abdomen: No tenderness, Other (Obese) Extremities: No cyanosis, Other (tr edema, left, ) Skin: Other (Left leg with erythema extending from foot to about 8cm below the knee, follows borders drawn upon admission. Left medial lower leg ulcer that penetrates to bone, minimal pustular drainage, some serous drainage. clean borders. Minimal pain to this. His left plantar foot has large callous along m etatarsal heads, significant pain to this with palpation, not fluctuant. ) Review of Systems Review of Systems peritnent as per hpi otherwise 14 point review of systems is negative. Comment Review of Relevant I have reviewed the following items dragan (where applicable) has been applied. Labs Laboratory Tests Test 04/18/19 10:05 Sodium Level 144 mmol/L (136-145) Potassium Level 4.0 mmol/L (3.5-5.1) Chloride Level 105 mmol/L (98-107) Carbon Dioxide Level 31 mmol/L (21-32) Anion Gap 8 (6-14) Blood Urea Nitrogen 24 mg/dL (8-26) Creatinine 1.2 mg/dL (0.7-1.3) Estimated GFR (Cockcroft-Gault) 59.9 Glucose Level 144 mg/dL (70-99) Hemoglobin A1c 6.2 % (4.8-5.6) Calcium Level 9.4 mg/dL (8.5-10.1) Microbiology 04/15/19 Blood Culture - Preliminary, Resulted NO GROWTH AFTER 3 DAYS Medications Current Medications Ondansetron HCl (Zofran) 4 mg PRN Q6HRS PRN IV NAUSEA/VOMITING, 1st CHOICE; Start 04/15/19 at 19:00 Prochlorperazine Edisylate (Compazine) 10 mg PRN Q6HRS PRN IV NAUSEA/VOMITING, 2nd CHOICE; Start 04/15/19 at 19:00 Calcium Carbonate/ Glycine (Tums) 500 mg PRN Q3HRS PRN PO UPSET STOMACH; Start 04/15/19 at 19:00 Oxycodone HCl (Roxicodone) 5 mg PRN Q3HRS PRN PO BREAKTHROUGH PAIN Last administered on 04/19/19at 09:48; Start 04/15/19 at 19:00 Morphine Sulfate (Morphine Sulfate) 2 mg PRN Q2HR PRN IV PAIN; Start 04/15/19 at 19:00 Acetaminophen (Tylenol) 650 mg PRN Q6HRS PRN PO Headaches, Temp > 101.5F; Start 04/15/19 at 19:00 Docusate Sodium (Colace) 100 mg BID PO Last administered on 04/18/19 21:03; Start 04/15/19 at 21:00 Magnesium Hydroxide (Milk Of Magnesia) 2,400 mg PRN Q12HR PRN PO CONSTIPATION; Start 04/15/19 at 19:00 Bisacodyl (Dulcolax Supp) 10 mg PRN DAILY PRN MA CONSTIPATION; Start 04/15/19 at 19:00 Albuterol Sulfate (Ventolin Neb Soln) 2.5 mg PRN Q4HRS PRN NEB SHORTNESS OF BREATH Last administered on 04/15/19 21:24; Start 04/15/19 at 19:00 Clonidine HCl (Catapres) 0.1 mg PRN Q1HR PRN PO HYPERTENSION; Start 04/15/19 at 19:00 Amlodipine Besylate (Norvasc) 10 mg DAILY PO Last administered on 04/18/19 08:30; Start 04/16/19 at 09:00 Atorvastatin Calcium (Lipitor) 40 mg QHS PO Last administered on 04/18/19 21:03; Start 04/16/19 at 21:00 Vitamin D (Vitamin D3) 2,000 unit DAILY PO Last administered on 04/18/19 08:28; Start 04/16/19 at 09:00 Furosemide (Lasix) 40 mg BID94 PO Last administered on 04/18/19 16:32; Start 04/16/19 at 09:00 Hydroxyzine HCl (Atarax) 25 mg PRN TID PRN PO ITCHING; Start 04/15/19 at 22:45; Stop 04/16/19 at 13:25; Status DC Metoprolol Tartrate (Lopressor) 75 mg BID PO Last administered on 04/18/19 21:02; Start 04/16/19 at 09:00 Tamsulosin HCl (Flomax) 0.4 mg QHS PO Last administered on 04/18/19 21:02; Start 04/16/19 at 21:00 Benztropine Mesylate (Cogentin) 2 mg QHS PO Last administered on 04/18/19 21:01; Start 04/15/19 at 23:30 Benztropine Mesylate (Cogentin) 4 mg DAILY08 PO Last administered on 04/18/19 08:28; Start 04/16/19 at 08:00 Artificial Tears (Artificial Tears) 1 drop PRN QID PRN OU DRY EYE; Start 04/15/19 at 23:30 Cephalexin HCl (Keflex) 500 mg TID PO ; Start 04/16/19 at 23:45; Stop 04/16/19 at 23:45; Status DC Hydrochlorothiazide (Hydrodiuril) 50 mg DAILY PO Last administered on 04/18/19 08:27; Start 04/16/19 at 09:00 Lactobacillus Rhamnosus (Culturelle) 1 cap TID PO Last administered on 04/18/19 21:02; Start 04/16/19 at 09:00 Losartan Potassium (Cozaar) 100 mg DAILY PO Last administered on 04/18/19 08:30; Start 04/16/19 at 09:00 Meloxicam (Mobic) 7.5 mg BID PO Last administered on 04/18/19 21:03; Start at 09:00 Potassium Chloride (Klor-Con) 20 meq DAILYWBKFT PO Last administered on 04/18/19 08:30; Start 04/16/19 at 08:00 Famotidine (Pepcid) 20 mg BID PO Last administered on 04/18/19 21:02; Start 04/16/19 at 09:00 Risperidone (RisperDAL) 4 mg QHS PO Last administered on 04/18/19 21:01; Start 04/15/19 at 23:30 Sertraline HCl (Zoloft) 150 mg DAILY PO Last administered on 04/18/19 08:29; Start 04/16/19 at 09:00 Non-Formulary Medication (Sildenafil Citrate (Viagra)) 1 tab PRN DAILY PO ; Start 04/15/19 at 22:45; Status UNV Trazodone HCl (Desyrel) 150 mg QHS PO Last administered on 04/18/19 21:01; Start 04/15/19 at 23:30 Trihexyphenidyl HCl (Artane) 5 mg DAILY08 PO Last administered on 04/18/19 08:28; Start 04/16/19 at 08:00 Trihexyphenidyl HCl (Artane) 10 mg DAILYWLUN PO Last administered on 04/18/19 13:20; Start 04/16/19 at 12:00 Vitamin B Complex (Cricket B) 1 tab DAILY PO Last administered on 04/18/19 08:28; Start 04/16/19 at 09:00 Albuterol/ Ipratropium (Duoneb) 3 ml RTQID NEB Last administered on 04/19/19 11:05; Start 04/16/19 at 12:00 Budesonide (Pulmicort) 0.5 mg RTBID NEB Last administered on 04/19/19 07:12; Start 04/16/19 at 09:30 Cefepime HCl (Maxipime) 2 gm Q12HR IVP Last administered on 04/19/19 09:38; Start 04/16/19 at 12:00 Doxycycline Hyclate (Vibra-Tab) 100 mg BID PO Last administered on 04/18/19 21:02; Start 04/16/19 at 12:00 Hydroxyzine Pamoate (Vistaril) 25 mg PRN TID PRN PO ITCHING; Start 04/16/19 at 13:25 Enoxaparin Sodium (Lovenox Per Pharmacy Prophylaxis Dosing) 1 each PRN DAILY PRN MC SEE COMMENTS; Start 04/17/19 at 10:45 Enoxaparin Sodium (Lovenox 40mg Syringe) 40 mg Q24H SQ Last administered on 04/18/19 13:20; Start 04/17/19 at 12:00; Status Future Hold Aspirin (Ecotrin) 81 mg DAILYWBKFT PO Last administered on 04/18/19 13:20; Start 04/18/19 at 11:45 Gadoterate Meglumine (Dotarem) 25.4 ml 1X ONCE IVP Last administered on 04/19/19 12:04; Start 04/19/19 at 12:00; Stop 04/19/19 at 12:01; Status DC Active Scripts Active Reported Flomax (Tamsulosin Hcl) 0.4 Mg Cap.er.24h 1 Cap PO QHS Losartan Potassium 100 Mg Tablet 100 Mg PO DAILY Vitamin D3 (Cholecalciferol (Vitamin D3)) 1,000 Unit Tablet 2 Tab PO DAILY Aspirin 325 Mg Tablet 1 Tab PO DAILY Amlodipine Besylate 10 Mg Tablet 10 Mg PO DAILY Trazodone Hcl 50 Mg Tablet 3 Tab PO QHS Cephalexin 500 Mg Capsule 2 Cap PO TID Tylenol (Acetaminophen) 325 Mg Tablet 1-2 Tab PO QID Gnp B-Complex Tablet (Vit B Comp & C/Calcium Carb) 1 Each Tablet 1 Each PO DAILY Trihexyphenidyl Hcl 5 Mg Tablet 2 Tab PO DAILYWLUN Trihexyphenidyl Hcl 5 Mg Tablet 1 Tab PO DAILY08 Viagra (Sildenafil Citrate) 100 Mg Tablet 1 Tab PO PRN DAILY Zoloft (Sertraline Hcl) 100 Mg Tablet 1.5 Tab PO DAILY Xarelto (Rivaroxaban) 20 Mg Tablet 20 Mg PO DAILY Risperidone 4 Mg Tablet 1 Tab PO QHS Ranitidine Hcl 150 Mg Tablet 1 Tab PO BID Potassium Chloride 20 Meq Tablet.er 20 Meq PO DAILY Metoprolol Tartrate 50 Mg Tablet 1.5 Tab PO BID Meloxicam 7.5 Mg Tablet 1 Tab PO BID Acidophilus (Lactobacillus Acidophilus) 1 Each Capsule 1 Each PO TID Hydroxyzine Hcl 25 Mg Tablet 1 Tab PO PRN TID PRN Hydrochlorothiazide Tablet (Hydrochlorothiazide) 50 Mg Tablet 50 Mg PO DAILY Furosemide 40 Mg Tablet 40 Mg PO BID Docusate Sodium 100 Mg Capsule 1 Cap PO BID Refresh Optive Eye Drops (Carboxymethylcellulos/Glycerin) 15 Ml Drops 1 Drop EACHEYE PRN QID PRN Benztropine Mesylate 2 Mg Tablet 1 Tab PO QHS Benztropine Mesylate 2 Mg Tablet 2 Tab PO DAILY08 Atorvastatin Calcium 40 Mg Tablet 1 Tab PO QHS Proair Hfa Inhaler (Albuterol Sulfate) 8.5 Gm Hfa.aer.ad 2 Puff INH PRN Q6HRS PRN Vitals/I & O Vital Sign - Last 24 Hours 04/18/19 04/18/19 04/18/19 04/18/19 15:00 15:26 16:32 19:00 Temp 98.4 97.7 98.4 97.7 Pulse 80 70 Resp 20 20 B/P (MAP) 116/62 (80) 141/57 (85) Pulse Ox 91 95 90 O2 Delivery Room Air Room Air Room Air Room Air 04/18/19 04/18/19 04/18/19 04/18/19 20:00 20:13 20:14 21:02 Pulse 77 B/P (MAP) 145/62 Pulse Ox 92 92 O2 Delivery Room Air Room Air Room Air 04/18/19 04/18/19 04/19/19 04/19/19 23:00 23:07 00:09 03:00 Temp 98.4 98.4 98.4 98.4 Pulse 64 58 Resp 20 18 18 20 B/P (MAP) 131/59 (83) 123/82 (96) Pulse Ox 92 93 O2 Delivery Room Air Room Air Room Air 04/19/19 04/19/19 04/19/19 04/19/19 07:00 07:13 09:00 09:00 Temp 97.9 97.9 Pulse 69 69 69 Resp 18 B/P (MAP) 106/52 (70) 106/52 106/52 Pulse Ox 89 93 O2 Delivery Room Air Room Air 04/19/19 04/19/19 04/19/19 04/19/19 09:48 10:57 11:05 11:22 Temp 97.8 97.8 Pulse 67 Resp 18 B/P (MAP) 118/54 (75) Pulse Ox 93 91 O2 Delivery Room Air Room Air Room Air Room Air Intake and Output 04/18/19 04/18/19 04/19/19 15:00 23:00 07:00 Intake Total 240 ml 120 ml Balance 240 ml 120 ml RUPA ARAGON MD April 19, 2019 14:21
[2019-04-19 15:21] VITALS: BP 126/52
[2019-04-19 19:00] VITALS: BP 156/57
[2019-04-19] MEDS: TAMSULOSIN 0.4 MG CAP.ER.24H. PO SCH (20:40)
[2019-04-19] MEDS: traZODone 50 MG TABLET. PO SCH (20:40)
[2019-04-19] MEDS: risperiDONE 1 MG TABLET. PO SCH (20:40)
[2019-04-19] MEDS: ATORVASTATIN CALCIUM 40 MG TABLET. PO SCH (20:41)
[2019-04-19 23:00] VITALS: BP 129/57
[2019-04-20] VITALS (14 sets, daily range): BP systolic 109–167; BP diastolic 47–77
[2019-04-20] MEDS: BUDESONIDE 0.5 MG/2 ML NEBU. NEB SCH ×2 (07:07→19:55)
[2019-04-20] MEDS: IPRATRPIUM/ALBUTEROL 0.5/2.5MG 3 ML NEBU. NEB SCH ×4 (07:07→19:55)
[2019-04-20] MEDS: VITAMIN B COMPLEX TABLET. PO SCH (07:56)
[2019-04-20] MEDS: CHOLECALCIFEROL (VITAMIN D3) 1,000 UNIT TABLET PO SCH (07:56)
[2019-04-20] MEDS: POTASSIUM CHLORIDE 20 MEQ TABLET.ER. PO SCH (08:00)
[2019-04-20] MEDS: TRIHEXYPHENIDYL 2 MG TABLET. PO SCH ×2 (08:00→12:00)
[2019-04-20] MEDS: ASPIRIN ENTERIC COATED 81 MG TABLET.DR. PO SCH (08:00)
[2019-04-20] MEDS: BENZTROPINE MESYLATE 1 MG TABLET. PO SCH ×2 (08:00→20:22)
--- NOTE | 2019-04-20 08:10 | PDOC ---
TCOM NOTE TCOM Note Transcutaneous oximetry is undertaken at the request of Dr. Caraballo in an effort to assess baseline peripheral vascular disease status in this patient with osteomyelitis of the distal tibia. Patient's vital signs are stable and he is currently receiving treatment for infectious process and associated cellulitis. Evident at the bedside is lower extremity edema and skin changes of cellulitis. This is a concern and may well interfere with the accuracy of leads placed at those sites. Lindquist electrodes are placed as pictured with leads 1,4 and 5 closest to the ulcer and likely most affected by edema and skin changes. Leads 2 and 3 are placed more laterally as pictured and lead 6 is reference electrode on the right leg. Breathing room air at 1 carmenza, leads 1 through 6 are as follows: 28 mmHg, 48 mmHg, 55 mmHg, 18 mmHg, 24 mmHg and 53 mmHg. Breathing 100% oxygen at 1 carmenza leads 1 through 6 are as follows: 80 mmHg, 105 mmHg, 120 mmHg, 64 mmHg, 85 mmHg and 124 mmHg. Leads least affected by skin changes, leads 2 and 3, demonstrate tissue oxygenation values adequate for healing. Leads most affected by skin changes, leads 1 and 4 demonstrate tissue oxygenation levels less than 40 mm or mercury. With oxygen augmentation, all leads improved significantly with leads 2 and 3 achieving values in excess of 100 mm or mercury, suggesting potential benefit with hyperbaric oxygen. Edema and overlying skin changes make interpretation difficult, however, periwound leads appear consistent with readings less than 40 mm or mercury and concerning for healing potential. Margarette العلي DOUGLAS M DO April 20, 2019 08:09
[2019-04-20] MEDS: CEFEPIME HCL IV Push 2 GM VIAL. IVP SCH ×2 (08:32→20:21)
[2019-04-20] MEDS: LOSARTAN POTASSIUM 50 MG TABLET. PO SCH (08:39)
[2019-04-20] MEDS: LACTOBACILLUS RHAMNOSUS GG 1 CAPSULE. PO SCH ×3 (08:39→20:25)
[2019-04-20] MEDS: DOCUSATE SODIUM 100 MG CAPSULE. PO SCH ×2 (08:39→20:22)
[2019-04-20] MEDS: FAMOTIDINE 20 MG TABLET. PO SCH ×2 (08:40→20:25)
[2019-04-20] MEDS: amLODIPine BESYLATE 10 MG TABLET PO SCH (08:40)
[2019-04-20] MEDS: FUROSEMIDE 40 MG TABLET. PO SCH ×2 (08:40→16:16)
[2019-04-20] MEDS: hydroCHLOROthiazide 25 MG TABLET PO SCH (08:40)
[2019-04-20] MEDS: MELOXICAM 7.5 MG TABLET PO SCH ×2 (08:40→20:23)
[2019-04-20] MEDS: METOPROLOL TART IMMED RELEASE 25 MG TABLET. PO SCH ×2 (08:40→20:24)
[2019-04-20] MEDS: DOXYCYCLINE HYCLATE 100 MG TABLET PO SCH ×2 (08:41→20:24)
[2019-04-20] MEDS: SERTRALINE 50 MG TABLET. PO SCH (08:41)
--- NOTE | 2019-04-20 09:05 | NUR ---
SW following. Discussed with RN, pt is having arteriogram today. [facility] stated if pt will need cefepime at discharge, pt will need to have a PICC line to go to [facility]. [facility] is not starting the insurance auth due to plan currently being unknown. Pt will be here through the weekend from a SNU/ SW standpoint. RN notified. SW will continue to follow.
[2019-04-20] MEDS ORDERED: MIDAZOLAM HCL/PF 2 MG/2 ML VIAL. ONE ×2 (10:15→10:29)
[2019-04-20] MEDS ORDERED: fentaNYL PF VIAL 100 MCG/2 ML VIAL ONE ×2 (10:15→10:29)
[2019-04-20] MEDS ORDERED: HEPARIN for IV BOLUS 10,000 UNIT/10 ML VIAL. ONE (10:29)
[2019-04-20] MEDS ORDERED: IODIXANOL 320 MG/ML 100 ML VIAL. ONE ×2 (10:39→11:55)
[2019-04-20] MEDS ORDERED: LIDOCAINE WITH 8.4% SOD BICARB 3 ML DISP.SYRIN. ONE ×2 (10:39→10:40)
--- NOTE | 2019-04-20 11:33 | PDOC ---
Infectious Disease Note Subjective: Subjective pt without complaints denies any f//n/v/d sob and cough are improving awaiting surgery later today ROS: ROS Negative except for above. Vital Signs: Vital Signs Vital Signs Date Time Temp Pulse Resp B/P (MAP) Pulse Ox O2 Delivery O2 Flow Rate FiO2 04/20/19 11:12 89 16 163/74 (103) 93 Nasal Cannula 2.0 04/20/19 07:00 97.9 97.9 Physical Exam: PHYSICAL EXAM GENERAL: Alert, oriented, somewhat confused male sitting in chair, in no acute distress, cooperative, pleasant. HEENT: Normocephalic, atraumatic, anicteric. NECK: Supple. No JVD. LUNGS: Clear bilaterally, no wheezing. HEART: S1, S2, no gallops or murmurs. ABDOMEN: Soft, obese. Bowel sounds present, nontender, nondistended. GENITOURINARY: Olivarez in place. CENTRAL NERVOUS SYSTEM: Alert, awake, somewhat confused, does have some trouble with memory. Able to move all 4 extremities. DERMATOLOGIC: Warm, dry. No generalized rash. EXTREMITIES: Left lower extremity swelling present. Scar over the lateral aspect around the ankle well healed. Venous stasis ulcer present on the medial aspect. No purulent drainage. Does not have any sinus tract, does not appear to be communicating to the lateral HW in place PSYCHIATRIC: Cooperative, appropriate mood and affect. Medications: Inpatient Meds: Current Medications Medications (Trade) Dose Ordered Sig/Akanksha Start Time Stop Time Status Last Admin Dose Admin Acetaminophen (Tylenol) 650 mg PRN Q6HRS PRN 04/15/19 19:00 Albuterol Sulfate (Ventolin Neb Soln) 2.5 mg PRN Q4HRS PRN 04/15/19 19:00 04/15/19 21:24 2.5 MG Albuterol/ Ipratropium (Duoneb) 3 ml RTQID 04/16/19 12:00 04/20/19 07:07 3 ML Amlodipine Besylate (Norvasc) 10 mg DAILY 04/16/19 09:00 04/18/19 08:30 10 MG Artificial Tears (Artificial Tears) 1 drop PRN QID PRN 04/15/19 23:30 Aspirin (Ecotrin) 81 mg DAILYWBKFT 04/18/19 11:45 04/18/19 13:20 81 MG Atorvastatin Calcium (Lipitor) 40 mg QHS 04/16/19 21:00 04/19/19 20:41 40 MG Benztropine Mesylate (Cogentin) 4 mg DAILY08 04/16/19 08:00 04/18/19 08:28 4 MG Bisacodyl (Dulcolax Supp) 10 mg PRN DAILY PRN 04/15/19 19:00 Budesonide (Pulmicort) 0.5 mg RTBID 04/16/19 09:30 04/20/19 07:07 0.5 MG Calcium Carbonate/ Glycine (Tums) 500 mg PRN Q3HRS PRN 04/15/19 19:00 Cefepime HCl (Maxipime) 2 gm Q12HR 04/16/19 12:00 04/20/19 08:32 2 GM Cephalexin HCl (Keflex) 500 mg TID 04/16/19 23:45 04/16/19 23:45 DC Clonidine HCl (Catapres) 0.1 mg PRN Q1HR PRN 04/15/19 19:00 Docusate Sodium (Colace) 100 mg BID 04/15/19 21:00 04/19/19 20:41 100 MG Doxycycline Hyclate (Vibra-Tab) 100 mg BID 04/16/19 12:00 04/19/19 20:41 100 MG Enoxaparin Sodium (Lovenox 40mg Syringe) 40 mg Q24H 04/17/19 12:00 Future Hold 04/18/19 13:20 40 MG Enoxaparin Sodium (Lovenox Per Pharmacy Prophylaxis Dosing) 1 each PRN DAILY PRN 04/17/19 10:45 Famotidine (Pepcid) 20 mg BID 04/16/19 09:00 04/19/19 20:40 20 MG Fentanyl Citrate (Fentanyl 2ml Vial) 100 mcg STK-MED ONCE 04/20/19 10:29 04/20/19 10:30 DC Furosemide (Lasix) 40 mg BID94 04/16/19 09:00 04/19/19 15:33 40 MG Gadoterate Meglumine (Dotarem) 25.4 ml 1X ONCE 04/19/19 12:00 04/19/19 12:01 DC 04/19/19 12:04 25.4 ML Heparin Sodium (Porcine) (Heparin Sodium) 10,000 unit STK-MED ONCE 04/20/19 10:29 04/20/19 10:30 DC Heparin Sodium/ Sodium Chloride 1,000 ml @ As Directed STK-MED ONCE 04/20/19 10:39 04/20/19 10:40 DC Hydrochlorothiazide (Hydrodiuril) 50 mg DAILY 04/16/19 09:00 04/18/19 08:27 50 MG Hydroxyzine Pamoate (Vistaril) 25 mg PRN TID PRN 04/16/19 13:25 Hydroxyzine HCl (Atarax) 25 mg PRN TID PRN 04/15/19 22:45 04/16/19 13:25 DC Iodixanol (Visipaque 320) 100 ml STK-MED ONCE 04/20/19 10:39 04/20/19 10:40 DC Lactobacillus Rhamnosus (Culturelle) 1 cap TID 04/16/19 09:00 04/19/19 20:39 1 CAP Lidocaine/Sodium Bicarbonate (Buffered Lidocaine 1%) 3 ml STK-MED ONCE 04/20/19 10:40 04/20/19 10:41 DC Losartan Potassium (Cozaar) 100 mg DAILY 04/16/19 09:00 04/18/19 08:30 100 MG Magnesium Hydroxide (Milk Of Magnesia) 2,400 mg PRN Q12HR PRN 04/15/19 19:00 Meloxicam (Mobic) 7.5 mg BID 04/16/19 09:00 04/19/19 20:41 7.5 MG Metoprolol Tartrate (Lopressor) 75 mg BID 04/16/19 09:00 04/19/19 20:39 75 MG Midazolam HCl (Versed) 2 mg STK-MED ONCE 04/20/19 10:29 04/20/19 10:30 DC Morphine Sulfate (Morphine Sulfate) 2 mg PRN Q2HR PRN 04/15/19 19:00 Non-Formulary Medication (Sildenafil Citrate (Viagra)) 1 tab PRN DAILY 04/15/19 22:45 UNV Ondansetron HCl (Zofran) 4 mg PRN Q6HRS PRN 04/15/19 19:00 Oxycodone HCl (Roxicodone) 5 mg PRN Q3HRS PRN 04/15/19 19:00 04/19/19 20:40 5 MG Potassium Chloride (Klor-Con) 20 meq DAILYWBKFT 04/16/19 08:00 04/18/19 08:30 20 MEQ Prochlorperazine Edisylate (Compazine) 10 mg PRN Q6HRS PRN 04/15/19 19:00 Risperidone (RisperDAL) 4 mg QHS 04/15/19 23:30 04/19/19 20:40 4 MG Sertraline HCl (Zoloft) 150 mg DAILY 04/16/19 09:00 04/18/19 08:29 150 MG Tamsulosin HCl (Flomax) 0.4 mg QHS 04/16/19 21:00 04/19/19 20:40 0.4 MG Trazodone HCl (Desyrel) 150 mg QHS 04/15/19 23:30 04/19/19 20:40 150 MG Trihexyphenidyl HCl (Artane) 10 mg DAILYWLUN 04/16/19 12:00 04/19/19 15:33 10 MG Vitamin B Complex (Cricket B) 1 tab DAILY 04/16/19 09:00 04/18/19 08:28 1 TAB Vitamin D (Vitamin D3) 2,000 unit DAILY 04/16/19 09:00 04/18/19 08:28 2,000 UNIT Objective: Assessment: Recent pneumonia at [facility] improving Chronic venous stasis Lt chronic ulcer ? unknown duration with underlying pad MRI foot Chronic postsurgical/posttraumatic changes of the distal tibia and fibula. Diffuse soft tissue edema, no organized fluid collection. Leucocytosis and lactic acidosis at osh resolved Chr diastolic heart failure h/o LLE HW in place for more than 25 yrs PAD Plan: Plan of Care Cont cefepime and doxycycline awaiting arteriogram Cont local wound care [facility] HARSHIL JAMESON MD April 20, 2019 11:33
[2019-04-20] MEDS ORDERED: LIDOCAINE WITH 8.4% SOD BICARB 3 ML DISP.SYRIN. IJ ONE (12:45)
[2019-04-20] MEDS ORDERED: HEPARIN for IV BOLUS 10,000 UNIT/10 ML VIAL. IV ONE (12:45)
[2019-04-20] MEDS ORDERED: MIDAZOLAM HCL/PF 2 MG/2 ML VIAL. IV ONE (12:45)
[2019-04-20] MEDS ORDERED: IODIXANOL 320 MG/ML 100 ML VIAL. IART ONE (12:45)
[2019-04-20] MEDS ORDERED: fentaNYL PF VIAL 100 MCG/2 ML VIAL IV ONE ×2 (12:45→13:30)
--- NOTE | 2019-04-20 13:01 | PDOC ---
PROGRESS NOTES Chief Complaint Chief Complaint leg leg cellulitis with wound, swelling and pain, has history of hardware to left leg, has been on disability 30 years for leg injury hx venous stasis ulcer, has followed with wound clinic obesity, BMI 38 COPD, treated for pneumonia at [facility] yesterday, afib, on xarelto, on hold, cognitive decline, lives in assisted living, schizoaffective hx with depression, on meds PVD recommendations from technical solutions consultant greatly appreciated. Patient will have angiography today. Procedure got cancelled yesterday History of Present Illness History of Present Illness Patient with no acute events reported overnight, patient denies fever or chills, plans to do an angiogram today. all concerns addressed to the best of my abilities. Vitals Vitals Vital Signs Date Time Temp Pulse Resp B/P (MAP) Pulse Ox O2 Delivery O2 Flow Rate FiO2 04/20/19 11:12 89 16 163/74 (103) 93 Nasal Cannula 2.0 04/20/19 07:00 97.9 97.9 Physical Exam Physical Exam GENERAL: Alert, oriented, somewhat confused male sitting in chair, in no acute distress, cooperative, pleasant. HEENT: Normocephalic, atraumatic, anicteric. NECK: Supple. No JVD. LUNGS: Clear bilaterally, no wheezing. HEART: S1, S2, no gallops or murmurs. ABDOMEN: Soft, obese. Bowel sounds present, nontender, nondistended. GENITOURINARY: Olivarez in place. CENTRAL NERVOUS SYSTEM: Alert, awake, somewhat confused, does have some trouble with memory. Able to move all 4 extremities. DERMATOLOGIC: Warm, dry. No generalized rash. EXTREMITIES: Left lower extremity swelling present. Scar over the lateral aspect around the ankle well healed. Venous stasis ulcer present on the medial aspect. No purulent drainage. Does not have any sinus tract, does not appear to be communicating to the lateral HW in place PSYCHIATRIC: Cooperative, appropriate mood and affect. General: Alert, Oriented X3, Cooperative Heart: Other (Normal radial, femoral pulses. Bilateral pedal edema extending up midshin bilaterally. Cannot appreciate left pedal pulses to palpation. Right DP palpable. ) Abdomen: Normal bowel sounds, No tenderness, Other (Obese) Extremities: No cyanosis, Other (tr edema, left, ) Skin: No rashes, No significant lesion, Other (Left leg with erythema extending from foot to about 8cm below the knee, follows borders drawn upon admission. Left medial lower leg ulcer that penetrates to bone, minimal pustular drainage, some serous drainage. clean borders. Minimal pain to this. His left plantar foot has large callous along metatarsal heads, significant pain to this with palpation, not fluctuant. ) Comment Review of Relevant I have reviewed the following items dragan (where applicable) has been applied. Labs Microbiology 04/15/19 Blood Culture - Preliminary, Resulted NO GROWTH AFTER 4 DAYS Medications Current Medications Ondansetron HCl (Zofran) 4 mg PRN Q6HRS PRN IV NAUSEA/VOMITING, 1st CHOICE; Start 04/15/19 at 19:00 Prochlorperazine Edisylate (Compazine) 10 mg PRN Q6HRS PRN IV NAUSEA/VOMITING, 2nd CHOICE; Start 04/15/19 at 19:00 Calcium Carbonate/ Glycine (Tums) 500 mg PRN Q3HRS PRN PO UPSET STOMACH; Start 04/15/19 at 19:00 Oxycodone HCl (Roxicodone) 5 mg PRN Q3HRS PRN PO BREAKTHROUGH PAIN Last administered on 04/19/19at 20:40; Start 04/15/19 at 19:00 Morphine Sulfate (Morphine Sulfate) 2 mg PRN Q2HR PRN IV PAIN; Start 04/15/19 at 19:00 Acetaminophen (Tylenol) 650 mg PRN Q6HRS PRN PO Headaches, Temp > 101.5F; Start 04/15/19 at 19:00 Docusate Sodium (Colace) 100 mg BID PO Last administered on 04/19/19at 20:41; Start 04/15/19 at 21:00 Magnesium Hydroxide (Milk Of Magnesia) 2,400 mg PRN Q12HR PRN PO CONSTIPATION; Start 04/15/19 at 19:00 Bisacodyl (Dulcolax Supp) 10 mg PRN DAILY PRN DC CONSTIPATION; Start 04/15/19 at 19:00 Albuterol Sulfate (Ventolin Neb Soln) 2.5 mg PRN Q4HRS PRN NEB SHORTNESS OF BREATH Last administered on 04/15/19at 21:24; Start 04/15/19 at 19:00 Clonidine HCl (Catapres) 0.1 mg PRN Q1HR PRN PO HYPERTENSION; Start 04/15/19 at 19:00 Amlodipine Besylate (Norvasc) 10 mg DAILY PO Last administered on 04/18/19 08:30; Start 04/16/19 at 09:00 Atorvastatin Calcium (Lipitor) 40 mg QHS PO Last administered on 04/19/19 20:41; Start 04/16/19 at 21:00 Vitamin D (Vitamin D3) 2,000 unit DAILY PO Last administered on 04/18/19 08:28; Start 04/16/19 at 09:00 Furosemide (Lasix) 40 mg BID94 PO Last administered on 04/19/19 15:33; Start 04/16/19 at 09:00 Hydroxyzine HCl (Atarax) 25 mg PRN TID PRN PO ITCHING; Start 04/15/19 at 22:45; Stop 04/16/19 at 13:25; Status DC Metoprolol Tartrate (Lopressor) 75 mg BID PO Last administered on 04/19/19 20:39; Start 04/16/19 at 09:00 Tamsulosin HCl (Flomax) 0.4 mg QHS PO Last administered on 04/19/19 20:40; Start 04/16/19 at 21:00 Benztropine Mesylate (Cogentin) 2 mg QHS PO Last administered on 04/19/19 20:39; Start 04/15/19 at 23:30 Benztropine Mesylate (Cogentin) 4 mg DAILY08 PO Last administered on 04/18/19 08:28; Start 04/16/19 at 08:00 Artificial Tears (Artificial Tears) 1 drop PRN QID PRN OU DRY EYE; Start 04/15/19 at 23:30 Cephalexin HCl (Keflex) 500 mg TID PO ; Start 04/16/19 at 23:45; Stop 04/16/19 at 23:45; Status DC Hydrochlorothiazide (Hydrodiuril) 50 mg DAILY PO Last administered on 04/18/19 08:27; Start 04/16/19 at 09:00 Lactobacillus Rhamnosus (Culturelle) 1 cap TID PO Last administered on 04/19/19 20:39; Start 04/16/19 at 09:00 Losartan Potassium (Cozaar) 100 mg DAILY PO Last administered on 04/18/19 08:30; Start 04/16/19 at 09:00 Meloxicam (Mobic) 7.5 mg BID PO Last administered on 04/19/19 20:41; Start 04/16/19 at 09:00 Potassium Chloride (Klor-Con) 20 meq DAILYWBKFT PO Last administered on 04/18/19 08:30; Start 04/16/19 at 08:00 Famotidine (Pepcid) 20 mg BID PO Last administered on 04/19/19 20:40; Start 04/16/19 at 09:00 Risperidone (RisperDAL) 4 mg QHS PO Last administered on 04/19/19 20:40; Start 04/15/19 at 23:30 Sertraline HCl (Zoloft) 150 mg DAILY PO Last administered on 04/18/19 08:29; Start 04/16/19 at 09:00 Non-Formulary Medication (Sildenafil Citrate (Viagra)) 1 tab PRN DAILY PO ; Start 04/15/19 at 22:45; Status UNV Trazodone HCl (Desyrel) 150 mg QHS PO Last administered on 04/19/19 20:40; Start 04/15/19 at 23:30 Trihexyphenidyl HCl (Artane) 5 mg DAILY08 PO Last administered on 04/18/19 08:28; Start 04/16/19 at 08:00 Trihexyphenidyl HCl (Artane) 10 mg DAILYWLUN PO Last administered on 04/19/19 15:33; Start 04/16/19 at 12:00 Vitamin B Complex (Cricket B) 1 tab DAILY PO Last administered on 04/18/19 08:28; Start 04/16/19 at 09:00 Albuterol/ Ipratropium (Duoneb) 3 ml RTQID NEB Last administered on 04/20/19 07:07; Start 04/16/19 at 12:00 Budesonide (Pulmicort) 0.5 mg RTBID NEB Last administered on 04/20/19 07:07; Start 04/16/19 at 09:30 Cefepime HCl (Maxipime) 2 gm Q12HR IVP Last administered on 04/20/19 08:32; Start 04/16/19 at 12:00 Doxycycline Hyclate (Vibra-Tab) 100 mg BID PO Last administered on 04/19/19at 20:41; Start 04/16/19 at 12:00 Hydroxyzine Pamoate (Vistaril) 25 mg PRN TID PRN PO ITCHING; Start 04/16/19 at 13:25 Enoxaparin Sodium (Lovenox Per Pharmacy Prophylaxis Dosing) 1 each PRN DAILY PRN MC SEE COMMENTS; Start 04/17/19 at 10:45 Enoxaparin Sodium (Lovenox 40mg Syringe) 40 mg Q24H SQ Last administered on 04/18/19at 13:20; Start 04/17/19 at 12:00; Status Future Hold Aspirin (Ecotrin) 81 mg DAILYWBKFT PO Last administered on 04/18/19at 13:20; Start 04/18/19 at 11:45 Gadoterate Meglumine (Dotarem) 25.4 ml 1X ONCE IVP Last administered on 04/19/19at 12:04; Start 04/19/19 at 12:00; Stop 04/19/19 at 12:01; Status DC Midazolam HCl (Versed) 2 mg STK-MED ONCE .ROUTE ; Start 04/20/19 at 10:15; Stop 04/20/19 at 10:16; Status DC Fentanyl Citrate (Fentanyl 2ml Vial) 100 mcg STK-MED ONCE .ROUTE ; Start 04/20/19 at 10:15; Stop 04/20/19 at 10:16; Status DC Heparin Sodium (Porcine) (Heparin Sodium) 10,000 unit STK-MED ONCE .ROUTE ; Start 04/20/19 at 10:29; Stop 04/20/19 at 10:30; Status DC Midazolam HCl (Versed) 2 mg STK-MED ONCE .ROUTE ; Start 04/20/19 at 10:29; Stop 04/20/19 at 10:30; Status DC Fentanyl Citrate (Fentanyl 2ml Vial) 100 mcg STK-MED ONCE .ROUTE ; Start 04/20/19 at 10:29; Stop 04/20/19 at 10:30; Status DC Iodixanol (Visipaque 320) 100 ml STK-MED ONCE .ROUTE ; Start 04/20/19 at 10:39; Stop 04/20/19 at 10:40; Status DC Lidocaine/Sodium Bicarbonate (Buffered Lidocaine 1%) 3 ml STK-MED ONCE .ROUTE ; Start 04/20/19 at 10:39; Stop 04/20/19 at 10:40; Status DC Heparin Sodium/ Sodium Chloride 1,000 ml @ As Directed STK-MED ONCE .ROUTE ; Start 04/20/19 at 10:39; Stop 04/20/19 at 10:40; Status DC Lidocaine/Sodium Bicarbonate (Buffered Lidocaine 1%) 3 ml STK-MED ONCE .ROUTE ; Start 04/20/19 at 10:40; Stop 04/20/19 at 10:41; Status DC Iodixanol (Visipaque 320) 100 ml STK-MED ONCE .ROUTE ; Start 04/20/19 at 11:55; Stop 04/20/19 at 11:56; Status DC Heparin Sodium/ Sodium Chloride (HEPARIN for ARTERIAL LINE FLUSH) 1,000 unit 1X ONCE IART Last administered on 04/20/19at 12:42; Start 04/20/19 at 12:45; Stop 04/20/19 at 12:46; Status DC Heparin Sodium/ Sodium Chloride (HEPARIN for ARTERIAL LINE FLUSH) 1,000 unit 1X ONCE IART Last administered on 04/20/19at 12:42; Start 04/20/19 at 12:45; Stop 04/20/19 at 12:46; Status DC Lidocaine/Sodium Bicarbonate (Buffered Lidocaine 1%) 3 ml 1X ONCE IJ Last administered on 04/20/19at 12:45; Start 04/20/19 at 12:45; Stop 04/20/19 at 12:46; Status DC Midazolam HCl (Versed) 2 mg 1X ONCE IV ; Start 04/20/19 at 12:45; Stop 04/20/19 at 12:46; Status DC Fentanyl Citrate (Fentanyl 2ml Vial) 100 mcg 1X ONCE IV ; Start 04/20/19 at 12:45; Stop 04/20/19 at 12:46; Status DC Iodixanol (Visipaque 320) 100 ml 1X ONCE IART ; Start 04/20/19 at 12:45; Stop 04/20/19 at 12:46; Status DC Heparin Sodium (Porcine) (Heparin Sodium) 5,000 unit 1X ONCE IV ; Start 04/20/19 at 12:45; Stop 04/20/19 at 12:46; Status DC Active Scripts Active Reported Flomax (Tamsulosin Hcl) 0.4 Mg Cap.er.24h 1 Cap PO QHS Losartan Potassium 100 Mg Tablet 100 Mg PO DAILY Vitamin D3 (Cholecalciferol (Vitamin D3)) 1,000 Unit Tablet 2 Tab PO DAILY Aspirin 325 Mg Tablet 1 Tab PO DAILY Amlodipine Besylate 10 Mg Tablet 10 Mg PO DAILY Trazodone Hcl 50 Mg Tablet 3 Tab PO QHS Cephalexin 500 Mg Capsule 2 Cap PO TID Tylenol (Acetaminophen) 325 Mg Tablet 1-2 Tab PO QID Gnp B-Complex Tablet (Vit B Comp & C/Calcium Carb) 1 Each Tablet 1 Each PO DAILY Trihexyphenidyl Hcl 5 Mg Tablet 2 Tab PO DAILYWLUN Trihexyphenidyl Hcl 5 Mg Tablet 1 Tab PO DAILY08 Viagra (Sildenafil Citrate) 100 Mg Tablet 1 Tab PO PRN DAILY Zoloft (Sertraline Hcl) 100 Mg Tablet 1.5 Tab PO DAILY Xarelto (Rivaroxaban) 20 Mg Tablet 20 Mg PO DAILY Risperidone 4 Mg Tablet 1 Tab PO QHS Ranitidine Hcl 150 Mg Tablet 1 Tab PO BID Potassium Chloride 20 Meq Tablet.er 20 Meq PO DAILY Metoprolol Tartrate 50 Mg Tablet 1.5 Tab PO BID Meloxicam 7.5 Mg Tablet 1 Tab PO BID Acidophilus (Lactobacillus Acidophilus) 1 Each Capsule 1 Each PO TID Hydroxyzine Hcl 25 Mg Tablet 1 Tab PO PRN TID PRN Hydrochlorothiazide Tablet (Hydrochlorothiazide) 50 Mg Tablet 50 Mg PO DAILY Furosemide 40 Mg Tablet 40 Mg PO BID Docusate Sodium 100 Mg Capsule 1 Cap PO BID Refresh Optive Eye Drops (Carboxymethylcellulos/Glycerin) 15 Ml Drops 1 Drop EACHEYE PRN QID PRN Benztropine Mesylate 2 Mg Tablet 1 Tab PO QHS Benztropine Mesylate 2 Mg Tablet 2 Tab PO DAILY08 Atorvastatin Calcium 40 Mg Tablet 1 Tab PO QHS Proair Hfa Inhaler (Albuterol Sulfate) 8.5 Gm Hfa.aer.ad 2 Puff INH PRN Q6HRS PRN Vitals/I & O Vital Sign - Last 24 Hours 04/19/19 04/19/19 04/19/19 04/19/19 15:12 15:21 15:34 16:57 Temp 97.6 97.6 Pulse 72 Resp 18 B/P (MAP) 126/52 (76) Pulse Ox 93 94 94 94 O2 Delivery Room Air Room Air Room Air O2 Flow Rate 2.0 2.0 04/19/19 04/19/19 04/19/19 04/19/19 18:09 19:00 20:01 20:39 Temp 97.5 97.5 Pulse 81 81 Resp 18 B/P (MAP) 156/57 (90) 156/57 Pulse Ox 94 91 O2 Delivery Room Air Room Air Room Air O2 Flow Rate 2.0 04/19/19 04/19/19 04/19/19 04/20/19 20:40 21:42 23:00 03:00 Temp 97.2 97.8 97.2 97.8 Pulse 73 84 Resp 18 18 18 18 B/P (MAP) 129/57 (81) 116/47 (70) Pulse Ox 91 93 90 O2 Delivery Room Air Room Air Room Air Room Air 04/20/19 04/20/19 04/20/19 04/20/19 07:00 07:08 08:00 11:12 Temp 97.9 97.9 Pulse 69 89 Resp 20 16 B/P (MAP) 145/56 (85) 163/74 (103) Pulse Ox 93 94 93 O2 Delivery Room Air Room Air Room Air Nasal Cannula O2 Flow Rate 2.0 Intake and Output 04/19/19 04/19/19 04/20/19 14:59 22:59 06:59 Intake Total 0 ml 120 ml 0 ml Output Total 0 ml Balance 0 ml 120 ml 0 ml RUPA ARAGON MD April 20, 2019 13:01
--- NOTE | 2019-04-20 13:18 | PDOC ---
Provider Note Provider Note Pt having angiogram with IR now, having left SFA stent placed for severe disease, has 2 vessel runoff to the foot. This should be adequate circulation to the foot and lower leg for healing. I spoke with Dr. Caraballo with ortho who recommends continued wound care and no need at this point for debridement. Will defer to wound care and ortho for wound management. TAYLOR IVEY MD April 20, 2019 13:18
[2019-04-20] MEDS ORDERED: ASPIRIN 325 MG TABLET ONE (13:39)
[2019-04-20] MEDS ORDERED: CLOPIDOGREL BISULFATE 75 MG TABLET ONE (13:39)
[2019-04-20] MEDS ORDERED: CLOPIDOGREL BISULFATE 75 MG TABLET PO ONE (13:45)
[2019-04-20] MEDS ORDERED: ASPIRIN 325 MG TABLET PO ONE (13:45)
--- NOTE | 2019-04-20 13:45 | PDOC ---
MODERATE SEDATION ASSESSMENT RISKS/ALTERNATIVES Risks/Alternatives Risks and alternatives of this type of sedation and procedure discussed with: RISK/ALTERNATIVES: Patient H & P ON CHART H & P H & P on chart and reviewed for co-morbid conditions and appropriate labs. H&P ON CHART: Yes STATUS PREG STATUS ASSESSED: Yes MEDS/ALLERGIES REVIEWED Meds/Allergies Reviewed Medications and Allergies including time and route of recently administered narcotics and sedatives. MEDS/ALLERGIES REVIEWED: Yes ASA RATING ASA RATING: II AIRWAY ASSESSMENT Airway Assessment Airway patency, oral function limitations, presence of caps, crowns, dentures, partials, and ability to extend neck assessed. AIRWAY ASSESSMENT: Yes MALLAMPATI SCORE MALLAMPATI SCORE: II PRE-SEDATION ASSESSMENT PRE-SEDATION ASSESSMENT: Yes JAIRO NATHAN MD April 20, 2019 13:45
--- NOTE | 2019-04-20 13:48 | PDOC ---
BRIEF OPERATIVE NOTE Pre-Op Diagnosis PAD, non healing wound L leg Post-Op Diagnosis same Procedure Performed LLE arterogram, angioplasty and stenting of SFA, angioplasty of the EIA Surgeon Vish Anesthesia Type: Conscious Sedation Findings Severe long segment disease of the left SFA, moderate narrowing of the left EIA, two vessel runoff with intact peroneal and AT arteries. Short segment occlusion of the DP, long segment proximal occlusion of the PT. Flow improved following angiplasty and covered stent of the SFA and Angioplasty of the EIA. Complications No immediate JAIRO NATHAN MD April 20, 2019 13:48
--- NOTE | 2019-04-20 17:52 | RAD ---
Procedure: Aortogram, left lower extremity arteriogram, angioplasty and stenting of the left SFA, and angioplasty of left external iliac artery Clinical Indication: 68-year-old male with critical limb ischemia, nonhealing wound of the left medial ankle Sedation: Conscious sedation was administered with a total intraprocedural [id number] time of 166 minutes. The patient was monitored by a qualified independent observer throughout the time of sedation. Please refer to the medical record for exact doses of medications utilized to achieve moderate sedation. Antibiotics: None Exposure: Kerma-Area Product: 524 Gycm2 Contrast: 142 cc of Omnipaque 320 contrast media Sterility: All elements of maximal sterile barrier technique including the use of a cap, mask, sterile gown, sterile gloves, large sterile sheet, appropriate hand hygiene, and 2% chlorhexidine for cutaneous antisepsis (or acceptable alternative antiseptic per current guidelines) were followed for this procedure. If ultrasound guidance was utilized, sterile ultrasound techniques were followed including use of a sterile probe cover. Consent: The procedure was explained in its entirety to the patient or the patients designated employee's representative by a member of the treatment team, including a discussion of the risks, benefits and commonly accepted alternatives to the procedure, as well as the expected consequences of no therapy whatsoever. Discussion of the risks included, but was not limited to, those that are most frequent and those that are rare but possibly severe or life-threatening, as well as the possibility of unforeseen complications. Technique and Findings: Following informed consent, the patient was prepped and draped in usual sterile fashion. Ultrasound interrogation of the right groin revealed patency of the right common femoral artery, with moderate calcified atherosclerosis. A hardcopy ultrasound image was recorded as a 21-gauge micropuncture needle was used to gain access to this vessel. The needle was exchanged over wire for 5 [place] sheath. A flush catheter was then advanced into the abdominal aorta and contrast aortography was performed. There is moderate multifocal atherosclerosis with no aneurysms or significant stenoses involving the aorta. The celiac and superior mesenteric arteries appear patent. The KARLOS is not well seen. Renal arteries appear patent. The catheter was then withdrawn to just above the aortic bifurcation and contrast angiography of the pelvis was performed in multiple obliquities. There is a moderate stenosis of the left external iliac artery resulting in approximately 50% stenosis. The catheter and wire were then advanced to the contralateral left common femoral artery and contrast angiography of the left leg was performed. There is moderate to severe multifocal atherosclerosis throughout the entirety of the SFA, with the bulk of the severe disease within the mid and distal SFA. The patient was then given 5000 units of heparin intravenously, and a 5 [place] sheath was exchanged for a long 6 [place] Ansell sheath which was positioned within the left common femoral artery. A 4 [place] glide catheter and wire were then used to probe the areas of disease, and were met with significant resistance and several tandem areas of the distal SFA. A 4 mm x 100 mm and post balloon was used to angioplasty the most proximal portion of the heavily diseased segment of the SFA. This failed to facilitate access across the tandem short subtotal occlusions. Eventually, access across the diseased region was successfully performed, and contrast angiography of the runoff vessels was completed. There is minimal atherosclerosis within widely patent popliteal artery, which provides direct flow to mildly atherosclerotic tibioperoneal trunk, peroneal, and anterior tibial arteries. These 2 vessels constitute the runoff to the ankle. The posterior tibial artery is occluded approximately 5 cm from its origin, but does reconstitute via retrograde flow through collaterals from the peroneal artery. The posterior tibial artery at the foot is patent. There is a 3 cm occlusion of the dorsalis pedis artery proximally, though this vessel does appear to reconstitute distally. A 6 mm x 15 cm covered viabahn stent was then deployed throughout the heavily diseased portion of the mid and distal SFA. This was postdilated using a 6 mm x 100 mm and post balloon. Area of moderate atherosclerosis within the proximal SFA was also angioplastied with this balloon. The balloon was removed and repeat angiography demonstrated markedly improved appearance, with a focal central area of recalcitrant stenosis within the stent due to bulky calcified atherosclerosis. There is also a short dissection of the proximal SFA, resulting in persistent 30% stenosis. More importantly, this was felt to represent a nidus for recurrent disease which might precipitate acute thrombosis of his covered stent. Consequently, a second covered viabahn stent, this time 6 mm x 10 cm. This was again postdilated using a 6 mm angioplasty balloon. Additionally, a 6 mm x 40 mm high-pressure angioplasty balloon was advanced into the area of recalcitrant extrinsic compression within the distal stent, and high pressure angioplasty of this region was performed. Although this did improve expansion of the stent somewhat, there remains a focal area of extrinsic compression resulting in 20-30% narrowing. Proximal SFA is notable only for mild residual atherosclerosis with no significant residual stenosis. Multiple catheters and wire combinations with then used to interrogate the occluded right posterior tibial artery. An angled catheter was advanced into the proximal right posterior tibial artery and contrast angiography was performed demonstrating multiple severe short segment total or subtotal areas of occlusion. Unfortunately despite multiple maneuvers, access across the area of occlusion into the patent distal posterior tibial artery could not be achieved. Attempts to recanalize this vessel were abandoned, particularly in light of the successful jehovah's witness of inflow. The sheath was then retracted into the left common iliac artery, and angioplasty of the moderate left external iliac artery stenosis was performed using an 8 mm x 40 mm angioplasty balloon. The balloon was removed and repeat angiography demonstrated excellent radiographic appearance with no significant residual stenosis. The sheath was then retracted to the right groin, and exchanged for short 5 [place]an sheath, which was subsequently exchanged for a minx closure device which was successfully utilized to obtain hemostasis. Complications: No immediate Impression: 1. Severe multifocal atherosclerosis, with long segment disease involving the left SFA, long segment disease involving the left posterior tibial artery, and moderate short segment disease involving the left external iliac artery. There is a patent 2 vessel runoff to the ankle via the dominant peroneal and transabdominal and anterior tibial arteries. Proximal posterior tibial artery is heavily diseased and ultimately occluded. There is occlusion of the proximal dorsalis pedis artery with reconstitution distally. There is patency of the posterior tibial artery at the foot, with retrograde flow into a healthy distal posterior tibial artery. 2. Markedly improved inflow following angioplasty and stenting of the SFA, and angioplasty of the left external iliac artery. 3. Unsuccessful attempts to recanalize the posterior tibial artery. In light of the excellent improvement in inflow, continued attempts were abandoned.
[2019-04-20] MEDS: TAMSULOSIN 0.4 MG CAP.ER.24H. PO SCH (20:22)
[2019-04-20] MEDS: traZODone 50 MG TABLET. PO SCH (20:24)
[2019-04-20] MEDS: risperiDONE 1 MG TABLET. PO SCH (20:24)
[2019-04-20] MEDS: ATORVASTATIN CALCIUM 40 MG TABLET. PO SCH (20:25)
[2019-04-20] MEDS: oxyCODONE IR 5 MG TABLET PO PRN (20:57)
[2019-04-21 02:57] VITALS: BP 117/52
[2019-04-21 07:00] VITALS: BP 137/64
[2019-04-21] MEDS: IPRATRPIUM/ALBUTEROL 0.5/2.5MG 3 ML NEBU. NEB SCH ×3 (07:15→15:02)
[2019-04-21] MEDS: BUDESONIDE 0.5 MG/2 ML NEBU. NEB SCH (07:15)
[2019-04-21] MEDS: CEFEPIME HCL IV Push 2 GM VIAL. IVP SCH (08:18)
[2019-04-21] MEDS: FAMOTIDINE 20 MG TABLET. PO SCH (08:19)
[2019-04-21] MEDS: VITAMIN B COMPLEX TABLET. PO SCH (08:19)
[2019-04-21] MEDS: MELOXICAM 7.5 MG TABLET PO SCH (08:19)
[2019-04-21] MEDS: SERTRALINE 50 MG TABLET. PO SCH (08:20)
[2019-04-21] MEDS: CHOLECALCIFEROL (VITAMIN D3) 1,000 UNIT TABLET PO SCH (08:20)
[2019-04-21] MEDS: LACTOBACILLUS RHAMNOSUS GG 1 CAPSULE. PO SCH ×2 (08:20→14:22)
[2019-04-21] MEDS: amLODIPine BESYLATE 10 MG TABLET PO SCH (08:20)
[2019-04-21] MEDS: METOPROLOL TART IMMED RELEASE 25 MG TABLET. PO SCH (08:21)
[2019-04-21] MEDS: LOSARTAN POTASSIUM 50 MG TABLET. PO SCH (08:21)
[2019-04-21] MEDS: ASPIRIN ENTERIC COATED 81 MG TABLET.DR. PO SCH (08:21)
[2019-04-21] MEDS: POTASSIUM CHLORIDE 20 MEQ TABLET.ER. PO SCH (08:22)
[2019-04-21] MEDS: DOXYCYCLINE HYCLATE 100 MG TABLET PO SCH (08:22)
[2019-04-21] MEDS: hydroCHLOROthiazide 25 MG TABLET PO SCH (08:22)
[2019-04-21] MEDS: DOCUSATE SODIUM 100 MG CAPSULE. PO SCH (08:22)
[2019-04-21] MEDS: TRIHEXYPHENIDYL 2 MG TABLET. PO SCH ×2 (08:22→11:53)
[2019-04-21] MEDS: FUROSEMIDE 40 MG TABLET. PO SCH ×2 (08:23→15:39)
[2019-04-21] MEDS: BENZTROPINE MESYLATE 1 MG TABLET. PO SCH (08:23)
[2019-04-21] MEDS: oxyCODONE IR 5 MG TABLET PO PRN (08:36)
[2019-04-21 11:00] VITALS: BP 127/59
--- NOTE | 2019-04-21 11:19 | PDOC ---
Provider Note Provider Note AF VSS awake and alert right groin access site clear with no hematoma left medial ankle wound is clean, deep into the subcutaneous tissue level with no significant necrotic tissue MRI negative for osteo A/P s/p left SFA stenting for severe peripheral artery disease and nonhealing ankle wound - no surgical debridement at this point, also discussed this with ortho - continue wound care - aspirin and plavix daily - follow up in the [facility] wound care clinic TAYLOR IVEY MD Apr 21, 2019 11:19
[2019-04-21] MEDS ORDERED: DOXY100T PO (11:22)
[2019-04-21] MEDS ORDERED: CLOP75TA PO (11:22)
--- NOTE | 2019-04-21 14:24 | PDOC3 ---
Discharge Summary Visit Information Date of Admission: April 16, 2019 Date of Discharge: Apr 21, 2019 Admitting Diagnosis: eg leg cellulitis with wound, swelling and pain Final Diagnosis Left leg cellulitis with wound, swelling and pain, has history of hardware to left leg, has been on disability 30 years for leg injury hx venous stasis ulcer obesity, BMI 38 COPD, treated for pneumonia at [facility] afib, on xarelto cognitive decline Brief Hospital Course Allergies Allergies Coded Allergies Type Severity Reaction Last Updated Verified No Known Medication Allergies Allergy Unknown 04/15/19 Yes Uncoded Allergies Type Severity Reaction Last Updated Verified dust Allergy Intermediate SNEEZING 04/15/19 Vital Signs Vital Signs Date Time Temp Pulse Resp B/P (MAP) Pulse Ox O2 Delivery O2 Flow Rate FiO2 04/21/19 11:00 98.3 73 20 127/59 (81) 93 Room Air 98.3 04/20/19 13:42 95.0 Brief Hospital Course Mr. Avilez was admitted to the [facility] yesterday to the ICU for pneumonia and leg pain. He complains of a long history of leg pain with ulcer and f/u planned withwound care, but new pain with marked redness and swelling of the leg. He is unsure of some timeline events and still thinks he is at [facility]. The area on the left leg is improved, seems less red to area marked yesterday. He slept OK, has short breaths, but can walk to the bathroom, some weakness, pain better, still 6/10, he is hungry and would like something to eat or drink. Patient seen in consultation by infectious disease vascular surgery and podiatry as well. The patient was placed on broad-spectrum antibiotics and given his long-standing history of diabetes in both vascular disease the patient underwent aortogram. 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 Fortunately the patient was able to tolerate hsi procedure well and he had a stent deployed in his left lower extremity. Patient recovered well from the procedure and continues to be on broad-spectrum antibiotics. We are waiting for the final recommendations from ID nursing education consultant moving forward. He will need to continue with wound care at this point, case discussed with vascular surgeon recommendations were greatly appreciated. Orthopedic surgery did not recommend doing surgical debridement wound the present time and allowing his chronic wound to heal on its own. This can be followed up in the outpatient setting certainly. The mainstay of his therapies going to be aspirin and Plavix and also controlling his comorbidities and risk factors for worsening of his peripheral vascular disease. Prognosis is guarded, the patient is in good spirits to be dismissed home please refer to chart for further details Discharge Information Condition at Discharge: Improved Follow Up: Weeks Disposition/Orders: D/C to Home Scheduled Acetaminophen (Tylenol) 325 Mg Tablet, 1-2 TAB PO QID for med list , #60 Ref 2 (Reported) Entered as Reported by: JOYCE CLEMENT on 04/15/191930 Last Taken: Unknown Dose on Unknown Date & Time Last Action: Last Taken Edited on 04/15/192058 by GREGOR COFFEY RN Amlodipine Besylate (Amlodipine Besylate) 10 Mg Tablet, 10 MG PO DAILY for htn, (Reported) Entered as Reported by: JOYCE CLEMENT on 04/15/191930 Last Taken: Unknown Dose on Unknown Date & Time Last Action: Continued on 04/15/192301 by GREGOR COFFEY RN Aspirin (Aspirin) 325 Mg Tablet, 1 TAB PO DAILY for med list, #30 Ref 5 (Reported) Entered as Reported by: JOYCE CLEMENT on 04/15/191930 Last Taken: Unknown Dose on Unknown Date & Time Last Action: Last Taken Edited on 04/15/192058 by GREGOR COFFEY RN Atorvastatin Calcium (Atorvastatin Calcium) 40 Mg Tablet, 1 TAB PO QHS for med list , #30 Ref 5 (Reported) Entered as Reported by: JOYCE CLEMENT on 04/15/191930 Last Taken: Unknown Dose on Unknown Date & Time Last Action: Continued on 04/15/192301 by GREGOR COFFEY RN Benztropine Mesylate (Benztropine Mesylate) 2 Mg Tablet, 2 TAB PO DAILY08 for med list , #60 Ref 1 (Reported) Entered as Reported by: JOYCE CLEMENT on 04/15/191930 Last Taken: Unknown Dose on Unknown Date & Time Last Action: Converted on 04/15/192301 by GREGOR COFFEY RN Benztropine Mesylate (Benztropine Mesylate) 2 Mg Tablet, 1 TAB PO QHS for med list , #30 Ref 2 (Reported) Entered as Reported by: JOYCE CLEMENT on 04/15/191930 Last Taken: Unknown Dose on Unknown Date & Time Last Action: Converted on 04/15/192301 by GREGOR COFFEY RN Cholecalciferol (Vitamin D3) (Vitamin D3) 1,000 Unit Tablet, 2 TAB PO DAILY for med list , #30 Ref 5 (Reported) Entered as Reported by: JOYCE CLEMENT on 04/15/191930 Last Taken: Unknown Dose on Unknown Date & Time Last Action: Continued on 04/15/192301 by GREGOR COFFEY RN Clopidogrel Bisulfate (Clopidogrel) 75 Mg Tablet, 75 MG PO DAILYWBKFT for an tiplatelet for 30 Days, #30 Ref 1 Prescribed by: RUPA ARAGON MD on 04/21/19 1122 Docusate Sodium (Docusate Sodium) 100 Mg Capsule, 1 CAP PO BID for constipation, #30 (Reported) Entered as Reported by: JOYCE CLEMENT on 04/15/191930 Last Taken: Unknown Dose on Unknown Date & Time Last Action: Last Taken Edited on 04/15/192058 by GREGOR COFFEY RN Doxycycline Hyclate (Doxycycline Hyclate) 100 Mg Tablet, 100 MG PO BID for diabetic wound for 10 Days, #20 Prescribed by: RUPA ARAGON MD on 04/21/19 1122 Furosemide (Furosemide) 40 Mg Tablet, 40 MG PO BID for med list , (Reported) Entered as Reported by: JOYCE CLEMENT on 04/15/191930 Last Taken: Unknown Dose on Unknown Date & Time Last Action: Continued on 04/15/192301 by GREGOR COFFEY RN Hydrochlorothiazide (Hydrochlorothiazide Tablet) 50 Mg Tablet, 50 MG PO DAILY for DIURETIC, Ref 0 (Reported) Entered as Reported by: JOYCE CLEMENT on 04/15/191930 Last Taken: Unknown Dose on Unknown Date & Time Last Action: Converted on 04/15/192301 by GREGOR COFFEY RN Lactobacillus Acidophilus (Acidophilus) 1 Each Capsule, 1 EACH PO TID for med list , (Reported) Entered as Reported by: JOYCE CLEMENT on 04/15/191930 Last Taken: Unknown Dose on Unknown Date & Time Last Action: Converted on 04/15/192301 by GREGOR COFFEY RN Losartan Potassium (Losartan Potassium) 100 Mg Tablet, 100 MG PO DAILY for HYPERTENSION, (Reported) Entered as Reported by: JOYCE CLEMENT on 04/15/191930 Last Taken: Unknown Dose on Unknown Date & Time Last Action: Converted on 04/15/192301 by GREGOR COFFEY RN Metoprolol Tartrate (Metoprolol Tartrate) 50 Mg Tablet, 1.5 TAB PO BID for htn, #60 Ref 5 (Reported) Entered as Reported by: JOYCE CLEMENT on 04/15/191930 Last Taken: Unknown Dose on Unknown Date & Time Last Action: Continued on 04/15/192301 by GREGOR COFFEY RN Potassium Chloride (Potassium Chloride) 20 Meq Tablet.er, 20 MEQ PO DAILY for med list, (Reported) Entered as Reported by: JOYCE CLEMENT on 04/15/191930 Last Taken: Unknown Dose on Unknown Date & Time Last Action: Converted on 04/15/192301 by GREGOR COFFEY RN Ranitidine Hcl (Ranitidine Hcl) 150 Mg Tablet, 1 TAB PO BID for med list , #180 Ref 3 (Reported) Entered as Reported by: JOYCE CLEMENT on 04/15/191930 Last Taken: Unknown Dose on Unknown Date & Time Last Action: Converted on 04/15/192301 by GREGOR COFFEY RN Risperidone (Risperidone) 4 Mg Tablet, 1 TAB PO QHS for med list , #30 Ref 1 (Reported) Entered as Reported by: JOYCE CLEMENT on 04/15/191930 Last Taken: Unknown Dose on Unknown Date & Time Last Action: Converted on 04/15/192301 by GREGOR COFFEY RN Rivaroxaban (Xarelto) 20 Mg Tablet, 20 MG PO DAILY for med list , (Reported) Entered as Reported by: JOYCE CLEMENT on 04/15/191930 Last Taken: Unknown Dose on Unknown Date & Time Last Action: Last Taken Edited on 04/15/192058 by GREGOR COFFEY RN Sertraline Hcl (Zoloft) 100 Mg Tablet, 1.5 TAB PO DAILY for med list , #30 Ref 5 (Reported) Entered as Reported by: JOYCE CLEMENT on 04/15/191930 Last Taken: Unknown Dose on Unknown Date & Time Last Action: Converted on 04/15/192301 by GREGOR COFFEY RN Sildenafil Citrate (Viagra) 100 Mg Tablet, 1 TAB PO PRN DAILY for med list , #6 Ref 11 (Reported) Entered as Reported by: JOYCE CLEMENT on 04/15/191930 Last Taken: Unknown Dose on Unknown Date & Time Last Action: Converted on 04/15/192301 by GREGOR COFFEY RN Tamsulosin Hcl (Flomax) 0.4 Mg Cap.er.24h, 1 CAP PO QHS for med list , #30 Ref 11 (Reported) Entered as Reported by: JOYCE CLEMENT on 04/15/191930 Last Taken: Unknown Dose on Unknown Date & Time Last Action: Continued on 04/15/192301 by GREGOR COFFEY RN Trazodone Hcl (Trazodone Hcl) 50 Mg Tablet, 3 TAB PO QHS for sleep, #30 Ref 1 (Reported) Entered as Reported by: JOYCE CLEMENT on 04/15/191930 Last Taken: Unknown Dose on Unknown Date & Time Last Action: Converted on 04/15/192301 by GREGOR COFFEY RN Trihexyphenidyl Hcl (Trihexyphenidyl Hcl) 5 Mg Tablet, 1 TAB PO DAILY08 for med list , #60 Ref 1 (Reported) Entered as Reported by: JOYCE CLEMENT on 04/15/191930 Last Taken: Unknown Dose on Unknown Date & Time Last Action: Converted on 04/15/192301 by GREGOR COFFEY RN Trihexyphenidyl Hcl (Trihexyphenidyl Hcl) 5 Mg Tablet, 2 TAB PO DAILYWLUN for med list , #60 Ref 1 (Reported) Entered as Reported by: JOYCE CLEMENT on 04/15/191930 Last Taken: Unknown Dose on Unknown Date & Time Last Action: Converted on 04/15/192301 by GREGOR COFFEY RN Vit B Comp & C/Calcium Carb (Gnp B-Complex Tablet) 1 Each Tablet, 1 EACH PO DAILY for med list , (Reported) Entered as Reported by: JOYCE CLEMENT on 04/15/191930 Last Taken: Unknown Dose on Unknown Date & Time Last Action: Converted on 04/15/192301 by GREGOR COFFEY RN Scheduled PRN Albuterol Sulfate (Proair Hfa Inhaler) 8.5 Gm Hfa.aer.ad, 2 PUFF INH PRN Q6HRS PRN for SHORTNESS OF BREATH, Ref 0 (Reported) Entered as Reported by: JOYCE CLEMENT on 04/15/191930 Last Taken: Unknown Dose on Unknown Date & Time Last Action: Last Taken Edited on 04/15/192058 by GREGOR COFFEY RN Carboxymethylcellulos/Glycerin (Refresh Optive Eye Drops) 15 Ml Drops, 1 DROP EACHEYE PRN QID PRN for DRY EYE, #30 Ref 6 (Reported) Entered as Reported by: JOYCE CLEMENT on 04/15/191930 Last Taken: Unknown Dose on Unknown Date & Time Last Action: Converted on 04/15/192301 by GREGOR COFFEY RN Hydroxyzine Hcl (Hydroxyzine Hcl) 25 Mg Tablet, 1 TAB PO PRN TID PRN for ANXIETY / AGITATION, #30 (Reported) Entered as Reported by: JOYCE CLEMENT on 04/15/191930 Last Taken: Unknown Dose on Unknown Date & Time Last Action: Continued on 04/15/192301 by GREGOR COFFEY RN Discontinued Medications Cephalexin (Cephalexin) 500 Mg Capsule, 2 CAP PO TID for med list , #30 (Reported) Entered as Reported by: JOYCE CLEMENT on 04/15/191930 Last Taken: Unknown Dose on Unknown Date & Time Last Action: Converted on 04/15/192301 by GREGOR COFFEY RN Meloxicam (Meloxicam) 7.5 Mg Tablet, 1 TAB PO BID for med list , #30 Ref 2 (Reported) Entered as Reported by: JOYCE CLEMENT on 04/15/191930 Last Taken: Unknown Dose on Unknown Date & Time Last Action: Converted on 04/15/192301 by PAT KLEIN HECTOR M MD Apr 21, 2019 14:24
[2019-04-21 15:00] VITALS: BP 126/63
--- NOTE | 2019-04-21 15:48 | PDOC ---
Infectious Disease Note Subjective Subjective Feels ready to go home Pain controlled No fever/chills/SOA No BM 3-4 days + indigestion ROS ROS per HPI Vital Sign Vital Signs Vital Signs Date Time Temp Pulse Resp B/P (MAP) Pulse Ox O2 Delivery O2 Flow Rate FiO2 04/21/19 15:02 Room Air 04/21/19 15:00 98.4 64 20 126/63 (84) 93 98.4 04/20/19 13:42 95.0 Physical Exam PHYSICAL EXAM GENERAL: Propped up in bed, alert, smiling HEENT: Oral cavity clear NECK: Supple. LUNGS: Clear bilaterally, no wheezing. HEART: S1, S2, no gallops or murmurs. ABDOMEN: Obese, soft, nontender, BS present - distended EXTREMITIES: Venous stasis ulcer present on the medial aspect, no redness or drainage CENTRAL NERVOUS SYSTEM: Alert, responding appropriately SKIN: Warm, dry. No generalized rash. PIV Right groin site is clean Labs Micro Microbiology 04/15/19 Blood Culture - Final, Complete NO GROWTH AFTER 5 DAYS Objective Assessment Recent pneumonia at [facility] improving Chronic venous stasis Left chronic ulcer ? unknown duration with underlying pad - MRI foot: Chronic postsurgical/posttraumatic changes of the distal tibia and fibula. Diffuse soft tissue edema, no organized fluid collection. Leucocytosis Lactic acidosis at OSH resolved Chronic diastolic heart failure h/o LLE hardware in place for more than 25 yrs PAD s/p left SFA stenting 04/20 Constipation no BM for 4 days MRI negative for osteo Plan Plan of Care D/c cefepime and begin Cefdinir cont po doxycycline - MOM now if + BM can d/c home with above abx for 5 days local wound care per wound care Elevate LLE D/w nursing Attending Co-Sign Attending Co-Sign The patient was seen and interviewed as well as examined at the bedside. The chart was reviewed. The case was discussed. Agree with the plan of care. LINDSEY SAINZ APRN Apr 21, 2019 15:48 CELESTINO PITT MD Apr 21, 2019 16:10
--- NOTE | 2019-04-21 17:30 | NUR ---
Discharge instructions reviewed with patient verbalized understanding. Patient was escorted out via wheelchair by Adriana LAKE accompanied by his brother.
[2019-04-21] MEDS ORDERED: CEFDINIR 300 MG CAPSULE PO SCH (21:00)
[2019-04-22] MEDS ORDERED: CLOPIDOGREL BISULFATE 75 MG TABLET PO SCH (08:00)
== END 2019-04-21 17:57 | disposition home or self-care (01) | DRG 853 ==
LOC: 4 NORTH 18:22
PROVIDERS: ADMIT Internal Medicine; ATTEND Internal Medicine
PROC: 047J3ZZ Dilation of Left External Iliac Artery, Percutaneous Approach (ICD-10-PCS; principal; 2019-04-20)
PROC: 047L3EZ Dilation of Left Femoral Artery with Two Intraluminal Devices, Percutaneous Approach (ICD-10-PCS; 2019-04-20)
PROC: B41D1ZZ Fluoroscopy of Aorta and Bilateral Lower Extremity Arteries using Low Osmolar Contrast (ICD-10-PCS; 2019-04-20)
DX: A41.9 Sepsis, unspecified organism (principal); G93.41 Metabolic encephalopathy; L03.116 Cellulitis of left lower limb; L97.929 Non-pressure chronic ulcer of unspecified part of left lower leg with unspecified severity; I50.32 Chronic diastolic (congestive) heart failure; I13.0 Hypertensive heart and chronic kidney disease with heart failure and stage 1 through stage 4 chronic kidney disease, or unspecified chronic kidney disease; J44.0 Chronic obstructive pulmonary disease with (acute) lower respiratory infection; E11.22 Type 2 diabetes mellitus with diabetic chronic kidney disease; E11.51 Type 2 diabetes mellitus with diabetic peripheral angiopathy without gangrene; G89.29 Other chronic pain; E66.9 Obesity, unspecified; E78.5 Hyperlipidemia, unspecified; F02.80 Dementia in other diseases classified elsewhere, unspecified severity, without behavioral disturbance, psychotic disturbance, mood disturbance, and anxiety; F25.9 Schizoaffective disorder, unspecified; F32.9 Major depressive disorder, single episode, unspecified; G31.09 Other frontotemporal neurocognitive disorder; I48.91 Unspecified atrial fibrillation; I83.028 Varicose veins of left lower extremity with ulcer other part of lower leg; I87.8 Other specified disorders of veins; K59.00 Constipation, unspecified; N18.9 Chronic kidney disease, unspecified; K21.9 Gastro-esophageal reflux disease without esophagitis; N40.0 Benign prostatic hyperplasia without lower urinary tract symptoms; Z68.38 Body mass index [BMI] 38.0-38.9, adult; Z79.01 Long term (current) use of anticoagulants; Z86.718 Personal history of other venous thrombosis and embolism; Z87.01 Personal history of pneumonia (recurrent); Z87.891 Personal history of nicotine dependence; Z87.81 Personal history of (healed) traumatic fracture
CPT/HCPCS: 36415; 37220; 37226; 73720; 75625; 75710; 76937; 80048; 81001; 83036; 85025; 85610; 85651; 87040; 87641; 93306; 93923; 94640; 94760; 99152; 99153; A4215; A9575; C1713; C1725; C1758; C1760; C1769; C1892; C1894; G0269; J0692; J1644; J1650; J2250; J3010; J7613; J7620; J7626; Q9967; 97110; 97116; 97535

== ENCOUNTER → 2021-08-20 | Outpatient (CLI) | payer OTHER ==
[~2021-08-20] MED LIST: ACET325T9 PO; ALBU2.5V8 INH; AMLO-187 PO; ASPI325T8 PO; ATOR40TA59 PO; BENZ2TAB5 PO; CARB15DR3 EACHEYE; CEPH500C PO; CHOL10003 PO; CLOP75TA PO; DOCU100C28 PO; DOXY100T PO; FURO40TA4 PO; HYDR25TA PO; HYDR50TA9 PO; LACT1CAP2 PO; LOSA100T14 PO; MELO7.5T29 PO; METO50TA6 PO; POTA20TA4 PO; RANI150T2 PO; RISP4TAB65 PO; RIVA20TA2 PO; SERT100T PO; SILD100T PO; TAMS0.4C97 PO; TRAZ-118 PO; TRIH5TAB3 PO; VIT1TABL81 PO
--- NOTE | 2021-08-20 17:04 | CARD ---
MR#: [id number] Date of Study: 08/20/2021 Ordering Physician: NIKKI DAS, Referring Physician: Kyrie DAVALOS: Mitchel Flores [facility] APPROVED REPORT EXAM: Two-dimensional and M-mode echocardiogram with Doppler and color Doppler. Other Information Quality : FairHR: 71bpm Rhythm : NSR INDICATION Congestive Heart Failure RISK FACTORS Hypertension Obesity Smoking 2D DIMENSIONS Left Atrium(2D)3.9 (1.6-4.0cm)IVSd1.0 (0.7-1.1cm) Aortic Root(2D)3.7 (2.0-3.7cm)LVDd5.3 (3.9-5.9cm) LVOT Diameter2.2 (1.8-2.4cm)PWd1.1 (0.7-1.1cm) LVDs3.8 (2.5-4.0cm)FS (%) 28.8 % SV73.8 ml Aortic Valve AoV Peak Teja.112.0cm/sAoV VTI22.0cm AO Peak GR.5.0mmHgLVOT Peak Teja.113.8cm/s AO Mean GR.3mmHgAVA (VMAX)3.77cm2 Mitral Valve MV E Yylzpqdk76.3cm/sMV E Peak Gr.3mmHg MV DECEL [id number] A Lpaaqbja06.7cm/s MV E Mean Gr.1mmHgE/A Ratio1.1 Tricuspid Valve TR P. Zmnrgmcq726hw/sTR Peak Gr.33mmHg Pulmonary Vein S1 Ueomaocp85.4cm/sD2 Ztyusilj64.7cm/s LEFT VENTRICLE The left ventricle is normal size. There is normal left ventricular wall thickness. The left ventricu lar systolic function is normal. LV ejection fraction is 55 to 60%. There is normal LV segmental wal l motion. No left ventricle thrombus noted on this study. There is no ventricular septal defect visua lized. There is no left ventricular aneurysm. There is no mass noted in the left ventricle. RIGHT VENTRICLE The right ventricle is normal size. There is normal right ventricular wall thickness. The right ventr icular systolic function is normal. ATRIA The left atrium size is normal. The right atrium size is normal. AORTIC VALVE The aortic valve is normal in structure and function. Doppler and Color Flow revealed no significant aortic regurgitation. There is no significant aortic valvular stenosis. There is no aortic valvular v egetation. MITRAL VALVE The mitral valve is normal in structure and function. There is no evidence of mitral valve prolapse. There is no mitral valve stenosis. Doppler and Color Flow revealed trace mitral valve regurgitation. TRICUSPID VALVE The tricuspid valve is normal in structure and function. Doppler and Color Flow revealed mild tricusp id valve regurgitation. The PA pressure was estimated at 41 mmHg. There is no tricuspid valve prolaps e or vegetation. There is no tricuspid valve stenosis. PULMONIC VALVE The pulmonary valve is normal in structure and function. Doppler and Color Flow revealed no pulmonic valvular regurgitation. There is no pulmonic valvular stenosis. GREAT VESSELS The aortic root is normal in size. The ascending aorta is normal in size. The pulmonary artery is nor mal. The IVC is normal in size and collapses >50% with inspiration. PERICARDIAL EFFUSION There is no pleural effusion. There is no evidence of significant pericardial effusion. Critical Notification Critical Value: No <Conclusion> The left ventricle is normal size. The left ventricular systolic function is normal. LV ejection fraction is 55 to 60%. Doppler and Color Flow revealed no significant aortic regurgitation. There is no significant aortic valvular stenosis. Doppler and Color Flow revealed trace mitral valve regurgitation. Doppler and Color Flow revealed mild tricuspid valve regurgitation. The PA pressure was estimated at 41 mmHg. Signed by : Sergio Espinoza MD Electronically Approved : 08/20/2021 17:03:52
--- NOTE | 2021-08-21 14:43 | RAD ---
MR#: [id number] Date of Study: 08/20/2021 Ordering Physician: NIKKI DAS, Referring Physician: NIKKI DAS, Tech: Jesus Manuel Mcfarland MBA, RDMS, RVT, RDCS, RTR APPROVED REPORT Patient Location : OUT-PATIENT Indications Lower Extremity Edema : Bilateral Findings Limited grayscale images of the saphenofemoral junctions on the right side reveal no obvious abnormal ities. The right great saphenous vein measures 6.1 mm and has no evidence of reflux. The left great saphenous vein at saphenofemoral junction is noted to have thrombus but distal to the deep vein. This appears to be consistent with a recent ablation according to patient's history. The bilateral lesser saphenous veins do not show any evidence of reflux Critical Notification Critical Value: No <Conclusion> 1. Negative for reflux in the right great saphenous vein and bilateral lesser saphenous veins 2. Probable left great saphenous vein ablation therapy based on history and thrombus noted in the ve in on imaging Signed by : Spike Tamez, Electronically Approved : 08/21/2021 14:43:07
== END ==
LOC: US 12:33
PROVIDERS: ATTEND Internal Medicine Cardiovascular Disease
DX: S81.802A Unspecified open wound, left lower leg, initial encounter (principal); I50.32 Chronic diastolic (congestive) heart failure; I36.1 Nonrheumatic tricuspid (valve) insufficiency; X58.XXXA Exposure to other specified factors, initial encounter; Y92.89 Other specified places as the place of occurrence of the external cause; Y93.89 Activity, other specified; Y99.8 Other external cause status
CPT/HCPCS: 93306; 93970

== ENCOUNTER → 2022-03-19 | Outpatient (CLI) | payer OTHER ==
--- NOTE | 2022-03-24 15:58 | RAD ---
MR#: [id number] Date of Study: 03/19/2022 Ordering Physician: NIKKI DACOSTA, Referring Physician: NIKKI DACOSTA, Tech: Jesus Manuel Mcfarland MBA, RDMS, RVT, RDCS, RTR APPROVED REPORT Patient Location: OUT-PATIENT Indications PAD VELOCITY AND DOPPLER WAVEFORM ANALYSIS RIGHT cm/secWaveformSeverity LEFT cm/secWaveform Severity dCFA 76.0MonophasicdCFA 177.0Monophasic Prof Fem Art. 55.0MonophasicProf Fem Art. 108.0Monophasic Fem Art Prox. 75.0MonophasicFem Art Prox. 138.0Monophasic Fem Art Mid. 55.0MonophasicFem Art Mid. 164.0Monophasic Fem Art Dist. 59.0MonophasicFem Art Dist. 101.0Monophasic Pop Art(Fossa) 81.0MonophasicPop Art(AK) 71.0Monophasic REGISTERED NURSE BONE MARROW TRANSPLANT Prox. 38.0MonophasicPTA Prox. REGISTERED NURSE BONE MARROW TRANSPLANT Dist. 68.0MonophasicPTA Dist. Per Art Mid. 25.0MonophasicPer Art Mid. JUAN Prox. 48.0MonophasicATA Prox. DPA 41MonophasicDPA Findings Grayscale images of peripheral arteries bilateral lower extremities showed mild to moderate diffuse a therosclerosis. Spectral waveform and color duplex analysis was performed. The right common femoral , deep femoral, superficial femoral and popliteal arteries showed diminished velocities with monophas ic waveforms suggestive of inflow disease. There is three-vessel runoff below the knee with monophas ic waveforms as well. The left lower extremity also showed monophasic waveforms suggestive of inflow disease. The left common femoral and mid segment of the left superficial femoral arteries showed sl ightly elevated velocities suggestive of moderate stenosis. The left below the knee vessels were not evaluated since his left leg was wrapped in bandages. Critical Notification Critical Value: No <Conclusion> Bilateral lower extremity arterial duplex scan suggested inflow disease right lower extremity and mod erate stenoses involving left common femoral and superficial femoral arteries. Recommend ABIs or CTA for further evaluation. Signed by : Nikki Dacosta, Electronically Approved : 03/24/2022 15:57:43
== END ==
LOC: US 15:10
PROVIDERS: ATTEND Internal Medicine Cardiovascular Disease
DX: I70.203 Unspecified atherosclerosis of native arteries of extremities, bilateral legs (principal)
CPT/HCPCS: 93925